=== PATIENT | male | born 1950 | race Caucasian/White ===

== ENCOUNTER 2020-11-28 12:52 | Inpatient (IN) | payer MEDICARE ==
[~2020-11-28] VITALS: Ht 172.7 cm; Wt 83.0 kg
--- NOTE | 2020-11-28 13:18 | PHYS DOC ---
General Adult EDM: Chief Complaint: PSYCH EVALUATION HPI: HPI: 70-year-old male presents via EMS for medical clearance for psychiatric admission. The patient was reported to be acting out and taking swings at staff at his care facility. He was also threatening violence. The patient does not express any medical complaints to me. Review of Systems: Review of Systems: Constitutional: Denies fever or chills Eyes: Denies change in visual acuity HENT: Denies nasal congestion or sore throat Respiratory: Denies cough or shortness of breath Cardiovascular: Denies chest pain or edema GI: Denies abdominal pain, nausea, vomiting, bloody stools or diarrhea : Denies dysuria Musculoskeletal: Denies back pain or joint pain Integument: Denies rash Neurologic: Denies headache, focal weakness or sensory changes Endocrine: Denies polyuria or polydipsia Lymphatic: Denies swollen glands Psychiatric: Denies depression or anxiety Allergies: Allergies: Allergies Coded Allergies Type Severity Reaction Last Updated Verified atorvastatin Allergy Unknown 11/28/20 Yes risperidone Allergy Unknown 11/28/20 Yes Physical Exam: PE: Constitutional: Well developed, well nourished, no acute distress, non-toxic appearance. [] HENT: Normocephalic, atraumatic, bilateral external ears normal, oropharynx moist, no oral exudates, nose normal. [] Eyes: PERRLA, EOMI, conjunctiva normal, no discharge. [] Neck: Normal range of motion, no tenderness, supple, no stridor. [] Cardiovascular: Heart rate regular rhythm, no murmur [] Lungs & Thorax: Bilateral breath sounds clear to auscultation [] Abdomen: Bowel sounds normal, soft, no tenderness, no masses, no pulsatile masses. [] Skin: Warm, dry, no erythema, no rash. [] Back: No tenderness, no CVA tenderness. [] Extremities: No tenderness, no cyanosis, no clubbing, ROM intact, no edema. [] Neurologic: Alert, normal motor function, normal sensory function, no focal deficits noted. [] Psychologic: Unable to assess. [] EKG: EKG: Sinus rhythm, rate 60, leftward axis, no ST elevation or depression. [] Radiology/Procedures: Radiology/Procedures: [] Heart Score: C/O Chest Pain: N/A Risk Factors: Risk Factors: DM, Current or recent (<one month) smoker, HTN, HLP, family history of CAD, obesity. Risk Scores: Score 0 - 3: 2.5% MACE over next 6 weeks - Discharge Home Score 4 - 6: 20.3% MACE over next 6 weeks - Admit for Clinical Observation Score 7 - 10: 72.7% MACE over next 6 weeks - Early Invasive Strategies Course & Med Decision Making: Course & Med Decision Making Pertinent Labs and Imaging studies reviewed. (See chart for details) The patient's labs are unremarkable. His urinalysis is negative for infection. His EKG is negative for acute findings. The patient is medically stable for behavioral health admission. [] Dragon Disclaimer: Dragon Disclaimer: This electronic medical record was generated, in whole or in part, using a voice recognition dictation system. Departure Departure: Impression: Primary Impression: Medical clearance for psychiatric admission Disposition: HOME / SELF CARE / HOMELESS Condition: STABLE GISELLE MOSHER DO Nov 28, 2020 13:18
--- NOTE | 2020-11-28 13:24 | EKG ---
[address] [address] Test Date: 2020-11-28 Test Time: 13:19:11 Pat Name: LARISSA ARREDONDO Department: Room: Gender: M Student Assistance Counselor: JUAN : 1950 Requested By: GISELLE MOSHER Order Number: [id number] Reading MD: Measurements Intervals [place] Rate: 60 P: -43 HI: 238 QRS: -49 QRSD: 100 T: 32 QT: 404 QTc: 404 Interpretive Statements SINUS RHYTHM PROLONGED HI INTERVAL ABNORMAL LEFT AXIS DEVIATION R-S TRANSITION ZONE IN V LEADS DISPLACED TO THE LEFT QRS(T) CONTOUR ABNORMALITY CONSISTENT WITH INFERIOR INFARCT PROBABLY OLD ABNORMAL ECG RI6.02 No previous ECG available for comparison
[2020-11-28 13:41] LABS: BASO % 1 % (0-3); EOS # 0.1 x10^3/uL (0.0-0.7); EOS % 2 % (0-3); HEMATOCRIT 40.5 % (39.0-53.0); HEMOGLOBIN 13.5 g/dL (13.0-17.5); LYMPH # 1.6 x10^3/uL (1.0-4.8); LYMPH % 33 % (24-48); MEAN CORPUSCULAR HEMOGLOBIN 30 pg (25-35); MEAN CORPUSCULAR HGB CONC 33 g/dL (31-37); MEAN CORPUSCULAR VOLUME 90 fL (79-100); MONO # 0.5 x10^3/uL (0.0-1.1); MONO % 10 % (0-9); NEUT # 2.6 x10^3uL (1.8-7.7); NEUT % 54 % (31-73); PLATELET COUNT 279 x10^3/uL (140-400); RED BLOOD COUNT 4.53 x10^6/uL (4.30-5.70); RED CELL DISTRIBUTION WIDTH 14.2 % (11.5-14.5); WHITE BLOOD COUNT 4.8 x10^3/uL (4.0-11.0)
[2020-11-28 13:47] LABS: HEMOGLOBIN ISTAT 13.3 gm/dL; POTASSIUM ISTAT 3.8 mmol/L (3.5-5.0)
[2020-11-28 14:13] LABS: BILIRUBIN,URINE NEG (NEG); CLARITY,URINE HAZY; COLOR,URINE YELLOW; GLUCOSE,URINE NEG (NEG); NITRITE,URINE NEG (NEG)
[2020-11-28 14:14] LABS: AMORPHOUS SEDIMENT,UR PRESENT /HPF; BACTERIA,URINE 0 /HPF (0-FEW); RBC,URINE 0 /HPF (0-2); WBC,URINE 0 /HPF (0-4)
[2020-11-28 15:09] LABS: CALCIUM 9.1 mg/dL (8.5-10.1); CREATININE 1.1 mg/dL (0.7-1.3); GFR 65.8; POTASSIUM 3.8 mmol/L (3.5-5.1)
[2020-11-28 15:15] LABS: ALBUMIN 3.6 g/dL (3.4-5.0); ALBUMIN/GLOBULIN RATIO 1.2 (1.0-1.7); MAGNESIUM 2.1 mg/dL (1.8-2.4); TOTAL BILIRUBIN 0.4 mg/dL (0.2-1.0); TOTAL PROTEIN 6.5 g/dL (6.4-8.2)
[2020-11-28 16:20] VITALS: BP 122/76
[2020-11-28] MEDS ORDERED: METHYL SALICYLATE/MENTHOL TOPICAL OINTMENT 57GM TUBE. TP PRN (16:45)
[2020-11-28] MEDS ORDERED: MAG HYDROX/AL HYDROX/SIMETH 30 ML ORAL.SUSP PO PRN ×2 (16:45→18:00)
[2020-11-28] MEDS ORDERED: MAGNESIUM HYDROXIDE 2,400 MG/30 ML ORAL.SUSP. PO PRN (16:45)
[2020-11-28] MEDS ORDERED: ACETAMINOPHEN 325 MG TABLET PO PRN (16:45)
[2020-11-28] MEDS ORDERED: TEMA15CA PO (17:04)
[2020-11-28] MEDS ORDERED: ONDA-84 PO (17:04)
[2020-11-28] MEDS ORDERED: DIPH28.33 TP (17:04)
[2020-11-28] MEDS ORDERED: POLY2500 PO (17:04)
[2020-11-28] MEDS ORDERED: MAG-115 PO (17:04)
[2020-11-28] MEDS ORDERED: FURO20TA3 PO (17:04)
[2020-11-28] MEDS ORDERED: NITR0.4T22 SL (17:04)
[2020-11-28] MEDS ORDERED: FENO145T3 PO (17:04)
[2020-11-28] MEDS ORDERED: DONE10TA61 PO (17:04)
[2020-11-28] MEDS ORDERED: TRIA15OI TP (17:04)
[2020-11-28] MEDS ORDERED: BISA10SU4 RC (17:04)
[2020-11-28] MEDS ORDERED: LORA-254 PO (17:04)
[2020-11-28] MEDS ORDERED: LACT1CAP6 PO (17:04)
[2020-11-28] MEDS ORDERED: CLOP75TA57 PO (17:04)
[2020-11-28] MEDS ORDERED: FAMO40TA4 PO (17:04)
[2020-11-28] MEDS ORDERED: BACL10TA PO (17:04)
[2020-11-28] MEDS ORDERED: CYAN100031 PO (17:04)
[2020-11-28] MEDS ORDERED: ACET500T68 PO (17:04)
[2020-11-28] MEDS ORDERED: CHOL10004 PO (17:04)
[2020-11-28] MEDS ORDERED: CARB1TAB22 PO (17:04)
[2020-11-28] MEDS ORDERED: METO-239 PO (17:04)
[2020-11-28] MEDS ORDERED: QUET50TA PO (17:04)
[2020-11-28] MEDS ORDERED: MELA3TAB43 PO (17:04)
[2020-11-28] MEDS ORDERED: LEVE100020 PO (17:04)
[2020-11-28] MEDS ORDERED: SENN1TAB62 PO (17:04)
[2020-11-28] MEDS ORDERED: CRESTOR40 MG PO (17:04)
[2020-11-28] MEDS ORDERED: ROPI0.5T4 PO (17:04)
[2020-11-28] MEDS ORDERED: ESCITALOPRAM OXA5 MG PO (17:04)
[2020-11-28] MEDS ORDERED: NIAC-9 PO (17:04)
[2020-11-28] MEDS ORDERED: NITROGLYCERIN SUBLINGUAL 0.4 MG BOTTLE OF 25. SL PRN (18:00)
[2020-11-28] MEDS ORDERED: TRIAMCINOLONE ACETONIDE 0.1% TOPICAL OINTMENT 15GM TUBE. TP PRN (18:00)
[2020-11-28] MEDS ORDERED: BISACODYL 10 MG SUPP.RECT RC PRN (18:00)
[2020-11-28] MEDS ORDERED: ONDANSETRON ODT 4 MG TAB.RAPDIS PO PRN (18:45)
[2020-11-28] MEDS ORDERED: diphenhydrAMINE/ZINC 2%/0.1% 28GM TUBE. TP PRN (18:45)
[2020-11-28] MEDS: FAMOTIDINE 20 MG TABLET PO SCH (20:43)
[2020-11-28] MEDS: rOPINIRole 0.5 MG TABLET. PO SCH (20:43)
[2020-11-28] MEDS: levETIRAcetam 500 MG TABLET PO SCH (20:43)
[2020-11-28] MEDS: LORazepam 1 MG TABLET PO SCH (20:43)
[2020-11-28] MEDS: MELATONIN 3 MG TABLET PO SCH (20:43)
[2020-11-28] MEDS: LACTOBACILLUS RHAMNOSUS GG 1 CAPSULE. PO SCH (20:43)
[2020-11-28] MEDS: TEMAZEPAM 7.5 MG CAPSULE PO SCH (20:43)
[2020-11-28] MEDS: SENNOSIDES/DOCUSATE 8.6/50MG TABLET. PO SCH (20:43)
[2020-11-28] MEDS: CARBIDOPA/LEVODOPA 25/100MG TABLET PO SCH (20:44)
[2020-11-28] MEDS: DONEPEZIL HCL 10 MG TABLET PO SCH (20:44)
[2020-11-28] MEDS: ACETAMINOPHEN 500 MG TABLET PO PRN (20:44)
[2020-11-28] MEDS: NIACIN ER 500 MG TABLET.ER PO SCH (20:44)
[2020-11-28] MEDS: BACLOFEN 10 MG TABLET PO SCH (20:44)
[2020-11-28] MEDS: NON FORMULARY ITEM (Rosuvastatin Calcium (Crestor) 40 MG) PO SCH (21:00)
[2020-11-28] MEDS ORDERED: TEMAZEPAM 15 MG CAPSULE PO SCH (21:00)
--- NOTE | 2020-11-28 22:05 | PDOC ---
Exam Note: Carl Note: Please also refer to the separate dictated note~for this date of service dictated separately.~Patient seen individually. Discussed the patient with Nursing staff reviewed the chart.~Reviewed interim history and current functioning. Reviewed vital signs,~Labs/ Radiology~and current medications noted below. Continue current treatment with the changes noted in the dictated addendum note Assessment: Vital Signs/I&O: Vital Signs Date Time Temp Pulse Resp B/P (MAP) Pulse Ox O2 Delivery O2 Flow Rate FiO2 11/28/20 16:20 96.8 88 20 122/76 (91) 98 11/28/20 14:40 Room Air Labs: Laboratory Tests Test 11/28/20 13:25 11/28/20 13:48 11/28/20 19:32 White Blood Count 4.8 x10^3/uL (4.0-11.0) Red Blood Count 4.53 x10^6/uL (4.30-5.70) Hemoglobin 13.5 g/dL (13.0-17.5) POC Hemoglobin 13.3 gm/dL Hematocrit 40.5 % (39.0-53.0) POC Hematocrit 39 % Mean Corpuscular Volume 90 fL (79-100) Mean Corpuscular Hemoglobin 30 pg (25-35) Mean Corpuscular Hemoglobin Concent 33 g/dL (31-37) Red Cell Distribution Width 14.2 % (11.5-14.5) Platelet Count 279 x10^3/uL (140-400) Neutrophils (%) (Auto) 54 % (31-73) Lymphocytes (%) (Auto) 33 % (24-48) Monocytes (%) (Auto) 10 % (0-9) H Eosinophils (%) (Auto) 2 % (0-3) Basophils (%) (Auto) 1 % (0-3) Neutrophils # (Auto) 2.6 x10^3uL (1.8-7.7) Lymphocytes # (Auto) 1.6 x10^3/uL (1.0-4.8) Monocytes # (Auto) 0.5 x10^3/uL (0.0-1.1) Eosinophils # (Auto) 0.1 x10^3/uL (0.0-0.7) Basophils # (Auto) 0.0 x10^3/uL (0.0-0.2) POC Sodium 143 mmol/L (135-145) Sodium Level 145 mmol/L (136-145) POC Potassium 3.8 mmol/L (3.5-5.0) Potassium Level 3.8 mmol/L (3.5-5.1) POC Chloride 104 mmol/L (98-110) Chloride Level 108 mmol/L (98-107) H Carbon Dioxide Level 27 mmol/L (21-32) POC Total CO2 31 mmol/L (23-32) Anion Gap 12 mmol/L (6-14) POC Blood Urea Nitrogen 15 mg/dL (8-26) Blood Urea Nitrogen 15 mg/dL (8-26) Creatinine 1.1 mg/dL (0.7-1.3) POC Creatinine 1.1 mg/dL (0.5-1.4) Estimated GFR (Cockcroft-Gault) 65.8 BUN/Creatinine Ratio 14 (6-20) Glucose Level 98 mg/dL (60-99) Calcium Level 9.1 mg/dL (8.5-10.1) POC Ionized Calcium (Kandi) 1.24 mmol/L (1.13-1.32) Magnesium Level 2.1 mg/dL (1.8-2.4) Total Bilirubin 0.4 mg/dL (0.2-1.0) Aspartate Amino Transferase (AST) 17 U/L (15-37) Alanine Aminotransferase (ALT) 11 U/L (16-63) L Alkaline Phosphatase 72 U/L (46-116) Total Protein 6.5 g/dL (6.4-8.2) Albumin 3.6 g/dL (3.4-5.0) Albumin/Globulin Ratio 1.2 (1.0-1.7) Urine Collection Type Unknown Urine Color Yellow Urine Clarity Hazy Urine pH 6.5 Urine Specific [place] 1.025 Urine Protein Neg (NEG-TRACE) Urine Glucose (UA) Neg mg/dL (NEG) Urine Ketones (Stick) Neg mg/dL (NEG) Urine Blood Neg (NEG) Urine Nitrite Neg (NEG) Urine Bilirubin Neg (NEG) Urine Urobilinogen Dipstick 1.0 mg/dL (0.2 mg/dL) Urine Leukocyte Esterase Neg (NEG) Urine RBC 0 /HPF (0-2) Urine WBC 0 /HPF (0-4) Urine Ammonium Biurate Crystals /HPF Urine Amorphous Sediment Present /HPF Urine Bacteria 0 /HPF (0-FEW) Glucose (Fingerstick) 79 mg/dL (70-99) Current Medications: Meds: Current Medications Medications (Trade) Dose Ordered Sig/Vincenzo Route PRN Reason Start Time Stop Time Status Last Admin Dose Admin Acetaminophen (Tylenol) 500 mg Q4HRS PRN PO PAIN/FEVER 11/28/20 18:00 11/28/20 20:44 Baclofen (Lioresal) 10 mg QID PO 11/28/20 21:00 11/28/20 20:44 Carbidopa/Levodopa (Sinemet 25/100) 1 tab BID PO 11/28/20 21:00 11/28/20 20:44 Donepezil HCl (Aricept) 10 mg QHS PO 11/28/20 21:00 11/28/20 20:44 Lorazepam (Ativan) 1 mg BID PO 11/28/20 21:00 11/28/20 20:43 Ropinirole HCl (Requip) 0.5 mg HS PO 11/28/20 21:00 11/28/20 20:43 Senna/Docusate Sodium (Senna Plus) 1 tab BID PO 11/28/20 21:00 11/28/20 20:43 Famotidine (Pepcid) 40 mg HS PO 11/28/20 21:00 11/28/20 20:43 Lactobacillus Rhamnosus (Culturelle) 2 cap BID PO 11/28/20 21:00 11/28/20 20:43 Levetiracetam (Keppra) 1,000 mg BID PO 11/28/20 21:00 11/28/20 20:43 Melatonin (Melatonin) 6 mg QHS PO 11/28/20 21:00 11/28/20 20:43 Niacin (Slo-Niacin) 250 mg QHS PO 11/28/20 21:00 11/28/20 20:44 Temazepam (Restoril) 7.5 mg QHS PO 11/28/20 21:00 11/28/20 20:43 I have reviewed the current psychotropics carefully including drug interactions. Risk benefit ratio favors no change other than as noted in my dictated progress note. Diagnosis: Problems: (1) Major neurocognitive disorder (2) Anxiety disorder, unspecified (3) Impulse control disorder, unspecified NADINE,MAN M MD Nov 28, 2020 22:05
--- NOTE | 2020-11-29 00:26 | HP ---
ADMIT DATE: 11/28/2020 PSYCHIATRIC ADMISSION HISTORY AND EVALUATION This note covers elements not covered in my initial note 11/28. IDENTIFYING DATA: The patient is a 70-year-old male referred to us from [facility] by his primary care physician/psychiatrist and admitted by his power of business attorney on account of worsening confusion within the context of his Parkinson's disease and increasing restlessness, agitation, irritable. Reportedly, patient had been swinging at staff and peers actively hallucinating. He threatened to kill his who lives at the same facility and was threatening his peers. The patient's behaviors have been deemed dangerous, unmanageable, has failed outpatient psychiatric interventions resulting in this referral. CHIEF COMPLAINT: "No". The patient appears confused, unable to directly answer questions, seemed somewhat hard of hearing, but unclear how much of it was due to being hard of hearing or cognitive impairment. HISTORY OF PRESENT ILLNESS: The patient has a history of dementia, multifactorial, possibly Alzheimer, vascular, questionably Lewy body within the context of his Parkinson's disease. He has been increasingly paranoid, psychotic, agitated with sleep and appetite changes disruptive and aggressive at the facility as noted above. No clear history of bipolar disorder. No suicidal or homicidal ideation. PAST PSYCHIATRIC HISTORY: As above. MEDICAL HISTORY: Parkinson's disease, history of PTSD, type 2 diabetes mellitus. PAST SURGICAL HISTORY: Pacemaker in place. CODE STATUS: Full code. ALLERGIES: ATORVASTATIN AND ZIPRASIDONE. Ambulates in wheelchair at times to assist. MEDICATIONS: Current psychotropics, Keppra 1000 mg b.i.d., Sinemet 25/100 mg b.i.d., Seroquel 50 mg daily, Lexapro 5 mg a day, Ativan 1 mg b.i.d., Restoril 7.5 mg at bedtime, baclofen 10 mg 4 times a day, melatonin 6 mg at bedtime, Requip 0.25 mg at bedtime, Aricept 10 mg a day. FAMILY HISTORY: Noncontributory. SOCIAL HISTORY: The patient lives at the above facility together with his . No alcohol, drug abuse, physical, sexual or elder abuse history is noted. He is not known to be a perpetrator. Reaction to hospitalization, the patient oblivious of this. ASSETS: Supportive family, stable living at the facility. REVIEW OF SYSTEMS: Possibly hard of hearing, impaired ambulation. No CV, , pulmonary, eye system symptoms on review. MENTAL STATUS EXAMINATION: NEUROLOGIC: The patient is oriented to himself, not very verbally interactive, I had to talk loudly into his ear. Insight, judgment, recent and remote memory, attention, concentration, fund of knowledge poor consistent with his diagnosis. IMPRESSION: Major neurocognitive disorder, multifactorial, possibly Lewy body, Alzheimer, vascular with delusion, depression, behavioral disturbance, anxiety disorder, unspecified; impulse control disorder, unspecified. Rest as above. PLAN: Admit to geropsychiatry unit at [facility]. I will see the patient daily individually from a psychiatric standpoint, medical followup with Dr. Guzmán/Dr. Conti. Continue current psychotropics. Maintain current regimen status baseline, then make further adjustments as clinically indicated. Consider Depakote as a mood stabilizer. Estimated length of stay 10-12 days. DISPOSITION: Plans back to [facility] when stable. MAN DR: Alissa TID: [id number]
[2020-11-29 06:23] VITALS: BP 102/68
[2020-11-29 07:10] LABS: BASO % 1 % (0-3); EOS # 0.1 x10^3/uL (0.0-0.7); EOS % 3 % (0-3); HEMATOCRIT 42.2 % (39.0-53.0); HEMOGLOBIN 14.1 g/dL (13.0-17.5); LYMPH # 2.2 x10^3/uL (1.0-4.8); LYMPH % 40 % (24-48); MEAN CORPUSCULAR HEMOGLOBIN 30 pg (25-35); MEAN CORPUSCULAR HGB CONC 33 g/dL (31-37); MEAN CORPUSCULAR VOLUME 90 fL (79-100); MONO # 0.6 x10^3/uL (0.0-1.1); MONO % 10 % (0-9); NEUT # 2.5 x10^3uL (1.8-7.7); NEUT % 47 % (31-73); PLATELET COUNT 276 x10^3/uL (140-400); RED BLOOD COUNT 4.69 x10^6/uL (4.30-5.70); RED CELL DISTRIBUTION WIDTH 14.7 % (11.5-14.5); WHITE BLOOD COUNT 5.5 x10^3/uL (4.0-11.0)
[2020-11-29 07:32] LABS: ALBUMIN 3.8 g/dL (3.4-5.0); ALBUMIN/GLOBULIN RATIO 1.2 (1.0-1.7); CALCIUM 9.2 mg/dL (8.5-10.1); CREATININE 1.1 mg/dL (0.7-1.3); GFR 65.8; TOTAL BILIRUBIN 0.6 mg/dL (0.2-1.0); TOTAL PROTEIN 6.9 g/dL (6.4-8.2)
[2020-11-29] MEDS: SENNOSIDES/DOCUSATE 8.6/50MG TABLET. PO SCH ×2 (08:12→21:14)
[2020-11-29] MEDS: CHOLECALCIFEROL (VITAMIN D3) 1,000 UNIT TABLET PO SCH (08:12)
[2020-11-29] MEDS: FENOFIBRATE NANOCRYSTALLIZED 145 MG TABLET PO SCH (08:12)
[2020-11-29] MEDS: QUEtiapine 50 MG TABLET. PO SCH (08:12)
[2020-11-29] MEDS: levETIRAcetam 500 MG TABLET PO SCH ×2 (08:12→21:13)
[2020-11-29] MEDS: POLYETHYLENE GLYCOL 3350 17 GM PACKET. PO SCH (08:12)
[2020-11-29] MEDS: CLOPIDOGREL BISULFATE 75 MG TABLET PO SCH (08:12)
[2020-11-29] MEDS: CARBIDOPA/LEVODOPA 25/100MG TABLET PO SCH ×2 (08:12→21:14)
[2020-11-29] MEDS: LACTOBACILLUS RHAMNOSUS GG 1 CAPSULE. PO SCH ×2 (08:13→21:13)
[2020-11-29] MEDS: FUROSEMIDE 20 MG TABLET PO SCH (08:13)
[2020-11-29] MEDS: CITALOPRAM 10 MG TABLET. PO SCH (08:13)
[2020-11-29] MEDS: BACLOFEN 10 MG TABLET PO SCH ×4 (08:13→21:14)
[2020-11-29] MEDS: LORazepam 1 MG TABLET PO SCH ×2 (08:13→21:14)
[2020-11-29] MEDS: METOPROLOL SUCC 24HR ER 25 MG TAB.ER.24H. PO SCH (08:14)
[2020-11-29] MEDS: CYANOCOBALAMIN (VITAMIN B-12) 1,000 MCG TABLET. PO SCH (08:19)
[2020-11-29 15:52] LABS: THYROID STIM HORMONE (TSH) 1.066 uIU/mL (0.358-3.740)
[2020-11-29 16:03] VITALS: BP 111/61
[2020-11-29] MEDS: NON FORMULARY ITEM (Rosuvastatin Calcium (Crestor) 40 MG) PO SCH (20:48)
[2020-11-29] MEDS: FAMOTIDINE 20 MG TABLET PO SCH (21:13)
[2020-11-29] MEDS: NIACIN ER 500 MG TABLET.ER PO SCH (21:13)
[2020-11-29] MEDS: TEMAZEPAM 7.5 MG CAPSULE PO SCH (21:13)
[2020-11-29] MEDS: MELATONIN 3 MG TABLET PO SCH (21:13)
[2020-11-29] MEDS: DONEPEZIL HCL 10 MG TABLET PO SCH (21:13)
[2020-11-29] MEDS: rOPINIRole 0.5 MG TABLET. PO SCH (21:14)
--- NOTE | 2020-11-29 22:22 | PDOC ---
Exam Note: Carl Note: Please also refer to the separate dictated note~for this date of service dictated separately.~Patient seen individually. Discussed the patient with Nursing staff reviewed the chart.~Reviewed interim history and current functioning. Reviewed vital signs,~Labs/ Radiology~and current medications noted below. Continue current treatment with the changes noted in the dictated addendum note Assessment: Vital Signs/I&O: Vital Signs Date Time Temp Pulse Resp B/P (MAP) Pulse Ox O2 Delivery O2 Flow Rate FiO2 11/29/20 16:03 97.7 84 18 111/61 (78) 100 11/29/20 06:23 Room Air I & O 11/28/20 11/28/20 11/29/20 15:00 23:00 07:00 Intake Total 60 ml Balance 60 ml Labs: Laboratory Tests Test 11/29/20 06:45 11/29/20 07:26 11/29/20 19:20 White Blood Count 5.5 x10^3/uL (4.0-11.0) Red Blood Count 4.69 x10^6/uL (4.30-5.70) Hemoglobin 14.1 g/dL (13.0-17.5) Hematocrit 42.2 % (39.0-53.0) Mean Corpuscular Volume 90 fL (79-100) Mean Corpuscular Hemoglobin 30 pg (25-35) Mean Corpuscular Hemoglobin Concent 33 g/dL (31-37) Red Cell Distribution Width 14.7 % (11.5-14.5) H Platelet Count 276 x10^3/uL (140-400) Neutrophils (%) (Auto) 47 % (31-73) Lymphocytes (%) (Auto) 40 % (24-48) Monocytes (%) (Auto) 10 % (0-9) H Eosinophils (%) (Auto) 3 % (0-3) Basophils (%) (Auto) 1 % (0-3) Neutrophils # (Auto) 2.5 x10^3uL (1.8-7.7) Lymphocytes # (Auto) 2.2 x10^3/uL (1.0-4.8) Monocytes # (Auto) 0.6 x10^3/uL (0.0-1.1) Eosinophils # (Auto) 0.1 x10^3/uL (0.0-0.7) Basophils # (Auto) 0.0 x10^3/uL (0.0-0.2) D-Dimer (Ama) 0.22 mg/L (0.00-0.50) Sodium Level 144 mmol/L (136-145) Potassium Level 4.0 mmol/L (3.5-5.1) Chloride Level 108 mmol/L (98-107) H Carbon Dioxide Level 29 mmol/L (21-32) Anion Gap 7 (6-14) Blood Urea Nitrogen 15 mg/dL (8-26) Creatinine 1.1 mg/dL (0.7-1.3) Estimated GFR (Cockcroft-Gault) 65.8 BUN/Creatinine Ratio 14 (6-20) Glucose Level 98 mg/dL (70-99) Calcium Level 9.2 mg/dL (8.5-10.1) Total Bilirubin 0.6 mg/dL (0.2-1.0) Aspartate Amino Transferase (AST) 17 U/L (15-37) Alanine Aminotransferase (ALT) 17 U/L (16-63) Alkaline Phosphatase 76 U/L (46-116) Total Protein 6.9 g/dL (6.4-8.2) Albumin 3.8 g/dL (3.4-5.0) Albumin/Globulin Ratio 1.2 (1.0-1.7) Triglycerides Level 94 mg/dL (0-150) Cholesterol Level 148 mg/dL (0-200) LDL Cholesterol, Calculated 80 mg/dL (0-100) VLDL Cholesterol, Calculated 18 mg/dL (0-40) Non-HDL Cholesterol Calculated 98 mg/dL (0-129) HDL Cholesterol 50 mg/dL (40-60) Cholesterol/HDL Ratio 2.0 Vitamin B12 Level 624 pg/mL (247-911) 25-Hydroxy Vitamin D Total 27.5 ng/mL (30-100) L Thyroid Stimulating Hormone (TSH) 1.066 uIU/mL (0.358-3.740) Thyroxine (T4) 6.7 ug/dL (4.5-12.0) Treponema pallidum Antibody Nonreactive (Nonreactive) Glucose (Fingerstick) 81 mg/dL (70-99) 114 mg/dL (70-99) H Current Medications: Meds: Laboratory Tests Test 11/29/20 06:45 6/8/21 07:26 11/29/20 19:20 White Blood Count 5.5 x10^3/uL Red Blood Count 4.69 x10^6/uL Hemoglobin 14.1 g/dL Hematocrit 42.2 % Mean Corpuscular Volume 90 fL Mean Corpuscular Hemoglobin 30 pg Mean Corpuscular Hemoglobin Concent 33 g/dL Red Cell Distribution Width 14.7 % Platelet Count 276 x10^3/uL Neutrophils (%) (Auto) 47 % Lymphocytes (%) (Auto) 40 % Monocytes (%) (Auto) 10 % Eosinophils (%) (Auto) 3 % Basophils (%) (Auto) 1 % Neutrophils # (Auto) 2.5 x10^3uL Lymphocytes # (Auto) 2.2 x10^3/uL Monocytes # (Auto) 0.6 x10^3/uL Eosinophils # (Auto) 0.1 x10^3/uL Basophils # (Auto) 0.0 x10^3/uL D-Dimer (Ama) 0.22 mg/L Sodium Level 144 mmol/L Potassium Level 4.0 mmol/L Chloride Level 108 mmol/L Carbon Dioxide Level 29 mmol/L Anion Gap 7 Blood Urea Nitrogen 15 mg/dL Creatinine 1.1 mg/dL Estimated GFR (Cockcroft-Gault) 65.8 BUN/Creatinine Ratio 14 Glucose Level 98 mg/dL Calcium Level 9.2 mg/dL Total Bilirubin 0.6 mg/dL Aspartate Amino Transf (AST/SGOT) 17 U/L Alanine Aminotransferase (ALT/SGPT) 17 U/L Alkaline Phosphatase 76 U/L Total Protein 6.9 g/dL Albumin 3.8 g/dL Albumin/Globulin Ratio 1.2 Triglycerides Level 94 mg/dL Cholesterol Level 148 mg/dL LDL Cholesterol, Calculated 80 mg/dL VLDL Cholesterol, Calculated 18 mg/dL Non-HDL Cholesterol Calculated 98 mg/dL HDL Cholesterol 50 mg/dL Cholesterol/HDL Ratio 2.0 Vitamin B12 Level 624 pg/mL 25-Hydroxy Vitamin D Total 27.5 ng/mL Thyroid Stimulating Hormone (TSH) 1.066 uIU/mL Thyroxine (T4) 6.7 ug/dL Treponema pallidum Antibody Nonreactive Glucose (Fingerstick) 81 mg/dL 114 mg/dL Current Medications Medications (Trade) Dose Ordered Sig/Vincenzo Route PRN Reason Start Time Stop Time Status Last Admin Dose Admin Acetaminophen (Tylenol) 650 mg PRN Q6HRS PRN PO MILD PAIN / TEMP > 100.3'F 11/28/20 16:45 Multi-Ingredient Ointment (Analgesic [place]) 1 esther PRN QID PRN TP MUSCLE PAIN 11/28/20 16:45 Al Hydroxide/Mg Hydroxide (Mylanta Plus Xs) 15 ml PRN AFTMEALHC PRN PO DYSPEPSIA 11/28/20 16:45 Magnesium Hydroxide (Milk Of Magnesia) 2,400 mg PRN QHS PRN PO CONSTIPATION 11/28/20 16:45 Acetaminophen (Tylenol) 500 mg Q4HRS PRN PO PAIN/FEVER 11/28/20 18:00 11/28/20 20:44 Baclofen (Lioresal) 10 mg QID PO 11/28/20 21:00 11/29/20 21:14 Bisacodyl (Dulcolax Supp) 10 mg PRN DAILY PRN RC CONSTIPATION 11/28/20 18:00 Carbidopa/Levodopa (Sinemet 25/100) 1 tab BID PO 11/28/20 21:00 11/29/20 21:14 Vitamin D (Vitamin D3) 1,000 unit DAILY PO 11/29/20 09:00 11/29/20 08:12 Clopidogrel Bisulfate (Plavix) 75 mg DAILY PO 11/29/20 09:00 11/29/20 08:12 Donepezil HCl (Aricept) 10 mg QHS PO 11/28/20 21:00 11/29/20 21:13 Fenofibrate (Tricor) 145 mg DAILY PO 11/29/20 09:00 11/29/20 08:12 Furosemide (Lasix) 20 mg DAILY PO 11/29/20 09:00 11/29/20 08:13 Lorazepam (Ativan) 1 mg BID PO 11/28/20 21:00 11/29/20 21:14 Al Hydroxide/Mg Hydroxide (Mylanta Plus Xs) 30 ml PRN Q2HRS PRN PO UPSET STOMACH 11/28/20 18:00 Metoprolol Succinate (Toprol Xl) 25 mg DAILY PO 11/29/20 09:00 Nitroglycerin (Nitrostat) 0.4 mg PRN Q5MIN PRN SL CHEST PAIN 11/28/20 18:00 Quetiapine Fumarate (SEROquel) 50 mg DAILY PO 11/29/20 09:00 11/29/20 08:12 Ropinirole HCl (Requip) 0.5 mg HS PO 11/28/20 21:00 11/29/20 21:14 Senna/Docusate Sodium (Senna Plus) 1 tab BID PO 11/28/20 21:00 11/29/20 21:14 Temazepam (Restoril) 7.5 mg QHS PO 11/28/20 21:00 11/28/20 20:32 DC Triamcinolone Acetonide (Kenalog) 1 esther PRN BID PRN TP BILAT ANKLE RASH 11/28/20 18:00 Cyanocobalamin (Vitamin B-12) 1,000 mcg DAILY PO 11/29/20 09:00 11/29/20 08:19 Zinc Acetate/ Diphenhydramine (Benadryl Topical) 1 esther PRN TID PRN TP BILAT ANKLE RASH ITCHING 11/28/20 18:45 Citalopram Hydrobromide (CeleXA) 10 mg DAILY PO 11/29/20 09:00 11/29/20 08:13 Famotidine (Pepcid) 40 mg HS PO 11/28/20 21:00 11/29/20 21:13 Lactobacillus Rhamnosus (Culturelle) 2 cap BID PO 11/28/20 21:00 11/29/20 21:13 Levetiracetam (Keppra) 1,000 mg BID PO 11/28/20 21:00 11/29/20 21:13 Melatonin (Melatonin) 6 mg QHS PO 11/28/20 21:00 11/29/20 21:13 Niacin (Slo-Niacin) 250 mg QHS PO 11/28/20 21:00 11/29/20 21:13 Ondansetron HCl (Zofran Odt) 4 mg PRN Q4HRS PRN PO NAUSEA/VOMITING 11/28/20 18:45 Polyethylene Glycol (miraLAX) 17 gm DAILY PO 11/29/20 09:00 11/29/20 08:12 Non-Formulary Medication (Rosuvastatin Calcium (Crestor)) 40 mg HS PO 11/28/20 21:00 UNV Temazepam (Restoril) 7.5 mg QHS PO 11/28/20 21:00 11/29/20 21:13 Current Medications Medications (Trade) Dose Ordered Sig/Vincenzo Route PRN Reason Start Time Stop Time Status Last Admin Dose Admin Vitamin D (Vitamin D3) 1,000 unit DAILY PO 11/29/20 09:00 11/29/20 08:12 Clopidogrel Bisulfate (Plavix) 75 mg DAILY PO 11/29/20 09:00 11/29/20 08:12 Fenofibrate (Tricor) 145 mg DAILY PO 11/29/20 09:00 11/29/20 08:12 Furosemide (Lasix) 20 mg DAILY PO 11/29/20 09:00 11/29/20 08:13 Quetiapine Fumarate (SEROquel) 50 mg DAILY PO 11/29/20 09:00 11/29/20 08:12 Cyanocobalamin (Vitamin B-12) 1,000 mcg DAILY PO 11/29/20 09:00 11/29/20 08:19 Citalopram Hydrobromide (CeleXA) 10 mg DAILY PO 11/29/20 09:00 11/29/20 08:13 Polyethylene Glycol (miraLAX) 17 gm DAILY PO 11/29/20 09:00 11/29/20 08:12 I have reviewed the current psychotropics carefully including drug interactions. Risk benefit ratio favors no change other than as noted in my dictated progress note. 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
[2020-11-29 23:07] LABS: HEMOGLOBIN A1C 5.5 % (4.8-5.6)
--- NOTE | 2020-11-30 00:47 | CONS ---
DATE OF CONSULTATION: 11/29/2020 REASON FOR CONSULTATION: Medical management. HISTORY OF PRESENT ILLNESS: The patient is a 70-year-old male patient, a resident at [facility] who was referred by his primary care physician and psychiatrist, on account of worsening confusion within the context of Parkinson disease and increasing restlessness, agitation and irritability. Reportedly, the patient has been swinging at staff and peers, actively hallucinating. He threatened to kill his who lives at the same facility, was threatening his peers. The patient's behaviors have been deemed dangerous, unmanageable, apparently has failed outpatient psychiatric stabilization and therefore, he was admitted to [facility] for inpatient psychiatric stabilization. PAST PSYCHIATRIC HISTORY: Significant for dementia, multifactorial, possibly Alzheimer, vascular, questionable Lewy body within the context of Parkinson's disease, apparently has been increasingly paranoid, psychotic, agitated. Sleep and appetite changes with disruptive and aggressive behavior at the facility. PAST MEDICAL HISTORY: Significant for Parkinson's disease, type 2 diabetes mellitus, gastroesophageal reflux disease, anoxic brain injury, dysphagia, hypertension, chronic constipation, hyperlipidemia. PAST SURGICAL HISTORY: Significant for permanent pacemaker placement. ALLERGIES: ALLERGIC TO ATORVASTATIN AND ZIPRASIDONE. MEDICATIONS: He is currently on the following medication. He is on Aricept 10 mg once a day at bedtime, baclofen 10 mg 4 times a day, Plavix 75 mg once a day, fenofibrate nanocrystallized 145 mg daily, Crestor 40 mg at bedtime, niacin 500 mg at bedtime, nitroglycerin 0.4 mg sublingually as needed for chest pain, metoprolol succinate 25 mg 1 tablet once a day, Tylenol 650 mg every 4 hours as needed, levetiracetam 1000 mg twice a day, escitalopram oxalate 5 mg once a day, quetiapine fumarate 50 mg daily, lorazepam 1 mg twice a day, temazepam 7.5 mg at bedtime, carbidopa/levodopa 25/100 one tablet twice a day, Requip 0.5 mg at bedtime. He is on furosemide 20 mg once a day, Mylanta 30 mL every 2 hours as needed, lactobacillus acidophilus 2 capsules twice a day, bisacodyl 10 mg suppository rectally daily p.r.n. for constipation, Senna-S one tablet twice a day, ondansetron 4 mg every 4 hours as needed, famotidine 40 mg once a day at bedtime, triamcinolone acetonide 15 g ointment apply topically twice a day, diphenhydramine/zinc apply topically 3 times a day, cyanocobalamin 1000 mcg one tablet once a day, cholecalciferol 1000 units once a day, melatonin 6 mg at bedtime, polyethylene glycol 17 g daily. REVIEW OF SYSTEMS: As per history of present illness. SOCIAL HISTORY: The patient lives at [facility] where his also lives there. He does not drink alcohol or use drugs or smokes. PHYSICAL EXAMINATION: GENERAL: When I examined him this afternoon, he was sitting comfortably in his chair, in no apparent respiratory distress. He was mostly nonverbal with some myoclonic jerks in his both upper extremities. There was no pallor, jaundice, cyanosis, or thyromegaly. No jugular distention. No limb edema. VITAL SIGNS: His heart rate was 84, blood pressure is 111/61, temperature 97.7, respiratory rate was 18, and oxygen saturation 100%. HEAD, EYES, EARS, NOSE AND THROAT: Showed normocephalic and atraumatic. NECK: Supple. HEART: Showed normal first and second heart sounds. No gallop or murmur. CHEST: Clear to auscultation. No crepitation or rhonchi. ABDOMEN: Scaphoid, soft, nontender. NEUROLOGIC: He is awake, alert, response at times appropriately. All his cranial nerves are grossly intact. He moves upper extremities to a greater extent than his lower extremities, mostly bedbound, wheelchair bound. He has myoclonic jerks in both upper extremities. LABORATORY DATA: Showed a white cell count 5500, hemoglobin 14, hematocrit 42, MCV 90 and platelet count 276,000. Serum sodium was 144, potassium 4, chloride 108, bicarbonate 29, anion gap of 7, BUN 15, creatinine 1.1, estimated GFR was 65 mL per minute. His glucose was 98, calcium was 9.2. Total bilirubin, AST, ALT, alkaline phosphatase were normal. Total protein 6.9, albumin was 3.8 and triglycerides was 94. Total cholesterol 148, LDL was 80, VLDL was 18, HDL cholesterol was 50 and the ratio is 2. Vitamin B12 was 624 pg/mL. 25-hydroxy vitamin D was 27.5 slightly on the lower side. His TSH was 1.066 and total T3 was normal at 91 ng/dL. His Treponema pallidum antibody was nonreactive. Urinalysis was essentially unremarkable and D-dimer was 0.22. ASSESSMENT AND PLAN: In summary, this is a 70-year-old male patient who was admitted as a referral from [facility] on account of increasing worsening confusion within the context of Parkinson's disease and increasing restlessness, agitation, and irritability. The patient has been swinging at staff and peers, actively hallucinating and threatening to kill his who lives at the same facility and was threatening his peers. His behavior has been deemed dangerous, unmanageable and therefore, he was admitted for inpatient psychiatric stabilization. Medically, the patient seems to have multiple medical problems that are generally stable including hypertension, hyperlipidemia, type 2 diabetes, gastroesophageal reflux disease. Obviously, his Parkinson's disease has very prominent features, has dyskinesia and locked rigidity and form of myoclonic jerks, but no tremors in his upper extremities. He is only on Sinemet one tablet twice a day and I believe that he would probably benefit from being seen by Dr. Florian for perhaps adjusting his anti-parkinsonian medication. Otherwise, all his lab work seemed to be well within acceptable range. His chemistry also showed that he is within normal range except for the fact that his 25-hydroxy vitamin D is in the lower side. There is no evidence of any infection in the urine. My plan is to continue with all his current medications as is and monitor his lab works are still pending. I will start him on vitamin D and will consult the pharmacy for replacement for Crestor as he is ALLERGIC TO ATORVASTATIN. Thank you, Dr. Erwin, for allowing me to participate in the care of this patient. MARTÍN NEGRETE: Ariel TID: [id number]
[2020-11-30 06:33] VITALS: BP 113/71
--- NOTE | 2020-11-30 06:49 | PDOC ---
Exam Note: Carl Note: This note is a late entry for 11/29/2020 covers elements not covered in my initial note. Subjective: The patient was seen individually in the evening of 11/29/2020 with Chyna WISDOM, discussed and reviewed the chart. He slept 8-1/4 hours previous night. The patient is alert and oriented x1. He does have significant parkinsonian facial expression, difficulty with his movements and he was trying to explain and emphasize this to me individually. Review of Systems: Ambulation impaired in wheelchair. No CV, , pulmonary, eye system symptoms on review. Reliability poor. Mental Status Exam: The patient is oriented to himself. Insight and judgment, recent and remote memory, attention and concentration, fund of knowledge is poor consistent with his diagnoses. Laboratory Data: Reviewed. 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 Anxiety disorder unspecified. Impulse control disorder unspecified. Plan: Continue psychotropics mentioned from initial note. Consult Dr. Florian to follow for his Parkinsons. Continue to evaluate baseline. Adjust further as clinically indicated. Assessment: Vital Signs/I&O: Vital Signs Date Time Temp Pulse Resp B/P (MAP) Pulse Ox O2 Delivery O2 Flow Rate FiO2 11/30/20 06:33 97.3 61 18 113/71 (85) 97 Room Air I & O 11/29/20 11/29/20 11/30/20 15:00 23:00 07:00 Intake Total 1680 ml 900 ml Balance 1680 ml 900 ml Labs: Laboratory Tests Test 11/29/20 07:26 11/29/20 19:20 Glucose (Fingerstick) 81 mg/dL (70-99) 114 mg/dL (70-99) H Current Medications: Meds: Laboratory Tests Test 11/29/20 07:26 11/29/20 19:20 Glucose (Fingerstick) 81 mg/dL 114 mg/dL Current Medications Medications (Trade) Dose Ordered Sig/Vincenzo Route PRN Reason Start Time Stop Time Status Last Admin Dose Admin Acetaminophen (Tylenol) 650 mg PRN Q6HRS PRN PO MILD PAIN / TEMP > 100.3'F 11/28/20 16:45 Multi-Ingredient Ointment (Analgesic [place]) 1 esther PRN QID PRN TP MUSCLE PAIN 11/28/20 16:45 Al Hydroxide/Mg Hydroxide (Mylanta Plus Xs) 15 ml PRN AFTMEALHC PRN PO DYSPEPSIA 11/28/20 16:45 Magnesium Hydroxide (Milk Of Magnesia) 2,400 mg PRN QHS PRN PO CONSTIPATION 11/28/20 16:45 Acetaminophen (Tylenol) 500 mg Q4HRS PRN PO PAIN/FEVER 11/28/20 18:00 11/28/20 20:44 Baclofen (Lioresal) 10 mg QID PO 11/28/20 21:00 11/29/20 21:14 Bisacodyl (Dulcolax Supp) 10 mg PRN DAILY PRN RC CONSTIPATION 11/28/20 18:00 Carbidopa/Levodopa (Sinemet 25/100) 1 tab BID PO 11/28/20 21:00 11/29/20 21:14 Vitamin D (Vitamin D3) 1,000 unit DAILY PO 11/29/20 09:00 11/29/20 08:12 Clopidogrel Bisulfate (Plavix) 75 mg DAILY PO 11/29/20 09:00 11/29/20 08:12 Donepezil HCl (Aricept) 10 mg QHS PO 11/28/20 21:00 11/29/20 21:13 Fenofibrate (Tricor) 145 mg DAILY PO 11/29/20 09:00 11/29/20 08:12 Furosemide (Lasix) 20 mg DAILY PO 11/29/20 09:00 11/29/20 08:13 Lorazepam (Ativan) 1 mg BID PO 11/28/20 21:00 11/29/20 21:14 Al Hydroxide/Mg Hydroxide (Mylanta Plus Xs) 30 ml PRN Q2HRS PRN PO UPSET STOMACH 11/28/20 18:00 Metoprolol Succinate (Toprol Xl) 25 mg DAILY PO 11/29/20 09:00 Nitroglycerin (Nitrostat) 0.4 mg PRN Q5MIN PRN SL CHEST PAIN 11/28/20 18:00 Quetiapine Fumarate (SEROquel) 50 mg DAILY PO 11/29/20 09:00 11/29/20 08:12 Ropinirole HCl (Requip) 0.5 mg HS PO 11/28/20 21:00 11/29/20 21:14 Senna/Docusate Sodium (Senna Plus) 1 tab BID PO 11/28/20 21:00 11/29/20 21:14 Temazepam (Restoril) 7.5 mg QHS PO 11/28/20 21:00 11/28/20 20:32 DC Triamcinolone Acetonide (Kenalog) 1 esther PRN BID PRN TP BILAT ANKLE RASH 11/28/20 18:00 Cyanocobalamin (Vitamin B-12) 1,000 mcg DAILY PO 11/29/20 09:00 11/29/20 08:19 Zinc Acetate/ Diphenhydramine (Benadryl Topical) 1 esther PRN TID PRN TP BILAT ANKLE RASH ITCHING 11/28/20 18:45 Citalopram Hydrobromide (CeleXA) 10 mg DAILY PO 11/29/20 09:00 11/29/20 08:13 Famotidine (Pepcid) 40 mg HS PO 11/28/20 21:00 11/29/20 21:13 Lactobacillus Rhamnosus (Culturelle) 2 cap BID PO 11/28/20 21:00 11/29/20 21:13 Levetiracetam (Keppra) 1,000 mg BID PO 11/28/20 21:00 11/29/20 21:13 Melatonin (Melatonin) 6 mg QHS PO 11/28/20 21:00 11/29/20 21:13 Niacin (Slo-Niacin) 250 mg QHS PO 11/28/20 21:00 11/29/20 21:13 Ondansetron HCl (Zofran Odt) 4 mg PRN Q4HRS PRN PO NAUSEA/VOMITING 11/28/20 18:45 Polyethylene Glycol (miraLAX) 17 gm DAILY PO 11/29/20 09:00 11/29/20 08:12 Non-Formulary Medication (Rosuvastatin Calcium (Crestor)) 40 mg HS PO 11/28/20 21:00 UNV Temazepam (Restoril) 7.5 mg QHS PO 11/28/20 21:00 11/29/20 21:13 Current Medications Medications (Trade) Dose Ordered Sig/Vincenzo Route PRN Reason Start Time Stop Time Status Last Admin Dose Admin Vitamin D (Vitamin D3) 1,000 unit DAILY PO 11/29/20 09:00 11/29/20 08:12 Clopidogrel Bisulfate (Plavix) 75 mg DAILY PO 11/29/20 09:00 11/29/20 08:12 Fenofibrate (Tricor) 145 mg DAILY PO 11/29/20 09:00 11/29/20 08:12 Furosemide (Lasix) 20 mg DAILY PO 11/29/20 09:00 11/29/20 08:13 Quetiapine Fumarate (SEROquel) 50 mg DAILY PO 11/29/20 09:00 11/29/20 08:12 Cyanocobalamin (Vitamin B-12) 1,000 mcg DAILY PO 11/29/20 09:00 11/29/20 08:19 Citalopram Hydrobromide (CeleXA) 10 mg DAILY PO 11/29/20 09:00 11/29/20 08:13 Polyethylene Glycol (miraLAX) 17 gm DAILY PO 11/29/20 09:00 11/29/20 08:12 I have reviewed the current psychotropics carefully including drug interactions. Risk benefit ratio favors no change other than as noted in my dictated progress note. Diagnosis: Problems: (1) Impulse control disorder, unspecified (2) Anxiety disorder, unspecified (3) Major neurocognitive disorder (4) Lewy body dementia with behavioral disturbance (5) Dementia, vascular, with delusions (6) Dementia, vascular, with delirium (7) Dementia in Alzheimer's disease with depression (8) Dementia in Alzheimer's disease with delusions (9) Parkinson's disease GIGI MCCOY MD Nov 30, 2020 06:49
[2020-11-30] MEDS: CITALOPRAM 10 MG TABLET. PO SCH (08:24)
[2020-11-30] MEDS: POLYETHYLENE GLYCOL 3350 17 GM PACKET. PO SCH (08:24)
[2020-11-30] MEDS: CLOPIDOGREL BISULFATE 75 MG TABLET PO SCH (08:25)
[2020-11-30] MEDS: QUEtiapine 50 MG TABLET. PO SCH (08:25)
[2020-11-30] MEDS: SENNOSIDES/DOCUSATE 8.6/50MG TABLET. PO SCH ×2 (08:25→20:39)
[2020-11-30] MEDS: levETIRAcetam 500 MG TABLET PO SCH ×2 (08:25→20:39)
[2020-11-30] MEDS: LORazepam 1 MG TABLET PO SCH ×2 (08:25→20:39)
[2020-11-30] MEDS: CHOLECALCIFEROL (VITAMIN D3) 1,000 UNIT TABLET PO SCH (08:25)
[2020-11-30] MEDS: LACTOBACILLUS RHAMNOSUS GG 1 CAPSULE. PO SCH ×2 (08:25→20:38)
[2020-11-30] MEDS: FENOFIBRATE NANOCRYSTALLIZED 145 MG TABLET PO SCH (08:25)
[2020-11-30] MEDS: CARBIDOPA/LEVODOPA 25/100MG TABLET PO SCH ×2 (08:25→20:40)
[2020-11-30] MEDS: FUROSEMIDE 20 MG TABLET PO SCH (08:25)
[2020-11-30] MEDS: METOPROLOL SUCC 24HR ER 25 MG TAB.ER.24H. PO SCH (08:26)
[2020-11-30] MEDS: BACLOFEN 10 MG TABLET PO SCH ×4 (08:26→20:38)
[2020-11-30] MEDS: CYANOCOBALAMIN (VITAMIN B-12) 1,000 MCG TABLET. PO SCH (08:26)
[2020-11-30 15:59] VITALS: BP 111/70
[2020-11-30] MEDS: NON FORMULARY ITEM (Rosuvastatin Calcium (Crestor) 40 MG) PO SCH (20:33)
[2020-11-30] MEDS: FAMOTIDINE 20 MG TABLET PO SCH (20:38)
[2020-11-30] MEDS: DONEPEZIL HCL 10 MG TABLET PO SCH (20:38)
[2020-11-30] MEDS: MELATONIN 3 MG TABLET PO SCH (20:38)
[2020-11-30] MEDS: rOPINIRole 0.5 MG TABLET. PO SCH (20:38)
[2020-11-30] MEDS: MIRTAZAPINE 7.5 MG TABLET. PO SCH (20:39)
[2020-11-30] MEDS: NIACIN ER 500 MG TABLET.ER PO SCH (20:39)
--- NOTE | 2020-11-30 22:09 | PDOC ---
Exam Note: Carl Note: Please also refer to the separate dictated note~for this date of service dictated separately.~Patient seen individually. Discussed the patient with Nursing staff reviewed the chart.~Reviewed interim history and current functioning. Reviewed vital signs,~Labs/ Radiology~and current medications noted below. Continue current treatment with the changes noted in the dictated addendum note Assessment: Vital Signs/I&O: Vital Signs Date Time Temp Pulse Resp B/P (MAP) Pulse Ox O2 Delivery O2 Flow Rate FiO2 11/30/20 15:59 98.0 70 18 111/70 (84) 98 11/30/20 06:33 Room Air I & O 11/29/20 11/29/20 11/30/20 15:00 23:00 07:00 Intake Total 1680 ml 900 ml Balance 1680 ml 900 ml Labs: Laboratory Tests Test 11/30/20 07:26 Glucose (Fingerstick) 91 mg/dL (70-99) Current Medications: Meds: Laboratory Tests Test 11/30/20 07:26 Glucose (Fingerstick) 91 mg/dL Current Medications Medications (Trade) Dose Ordered Sig/Vincenzo Route PRN Reason Start Time Stop Time Status Last Admin Dose Admin Acetaminophen (Tylenol) 650 mg PRN Q6HRS PRN PO MILD PAIN / TEMP > 100.3'F 11/28/20 16:45 Multi-Ingredient Ointment (Analgesic [place]) 1 esther PRN QID PRN TP MUSCLE PAIN 11/28/20 16:45 Al Hydroxide/Mg Hydroxide (Mylanta Plus Xs) 15 ml PRN AFTMEALHC PRN PO DYSPEPSIA 11/28/20 16:45 Magnesium Hydroxide (Milk Of Magnesia) 2,400 mg PRN QHS PRN PO CONSTIPATION 11/28/20 16:45 Acetaminophen (Tylenol) 500 mg Q4HRS PRN PO PAIN/FEVER 11/28/20 18:00 11/28/20 20:44 Baclofen (Lioresal) 10 mg QID PO 11/28/20 21:00 11/30/20 20:38 Bisacodyl (Dulcolax Supp) 10 mg PRN DAILY PRN RC CONSTIPATION 11/28/20 18:00 Carbidopa/Levodopa (Sinemet 25/100) 1 tab BID PO 11/28/20 21:00 11/30/20 20:40 Vitamin D (Vitamin D3) 1,000 unit DAILY PO 11/29/20 09:00 11/30/20 08:25 Clopidogrel Bisulfate (Plavix) 75 mg DAILY PO 11/29/20 09:00 11/30/20 08:25 Donepezil HCl (Aricept) 10 mg QHS PO 11/28/20 21:00 11/30/20 20:38 Fenofibrate (Tricor) 145 mg DAILY PO 11/29/20 09:00 11/30/20 08:25 Furosemide (Lasix) 20 mg DAILY PO 11/29/20 09:00 11/30/20 08:25 Lorazepam (Ativan) 1 mg BID PO 11/28/20 21:00 11/30/20 18:02 DC 11/30/20 08:25 Al Hydroxide/Mg Hydroxide (Mylanta Plus Xs) 30 ml PRN Q2HRS PRN PO UPSET STOMACH 11/28/20 18:00 Metoprolol Succinate (Toprol Xl) 25 mg DAILY PO 11/29/20 09:00 11/30/20 08:26 Nitroglycerin (Nitrostat) 0.4 mg PRN Q5MIN PRN SL CHEST PAIN 11/28/20 18:00 Quetiapine Fumarate (SEROquel) 50 mg DAILY PO 11/29/20 09:00 11/30/20 08:25 Ropinirole HCl (Requip) 0.5 mg HS PO 11/28/20 21:00 11/30/20 20:38 Senna/Docusate Sodium (Senna Plus) 1 tab BID PO 11/28/20 21:00 11/30/20 20:39 Temazepam (Restoril) 7.5 mg QHS PO 11/28/20 21:00 11/28/20 20:32 DC Triamcinolone Acetonide (Kenalog) 1 esther PRN BID PRN TP BILAT ANKLE RASH 11/28/20 18:00 Cyanocobalamin (Vitamin B-12) 1,000 mcg DAILY PO 11/29/20 09:00 11/30/20 08:26 Zinc Acetate/ Diphenhydramine (Benadryl Topical) 1 esther PRN TID PRN TP BILAT ANKLE RASH ITCHING 11/28/20 18:45 Citalopram Hydrobromide (CeleXA) 10 mg DAILY PO 11/29/20 09:00 11/30/20 08:24 Famotidine (Pepcid) 40 mg HS PO 11/28/20 21:00 11/30/20 20:38 Lactobacillus Rhamnosus (Culturelle) 2 cap BID PO 11/28/20 21:00 11/30/20 20:38 Levetiracetam (Keppra) 1,000 mg BID PO 11/28/20 21:00 11/30/20 20:39 Melatonin (Melatonin) 6 mg QHS PO 11/28/20 21:00 11/30/20 20:38 Niacin (Slo-Niacin) 250 mg QHS PO 11/28/20 21:00 11/30/20 20:39 Ondansetron HCl (Zofran Odt) 4 mg PRN Q4HRS PRN PO NAUSEA/VOMITING 11/28/20 18:45 Polyethylene Glycol (miraLAX) 17 gm DAILY PO 11/29/20 09:00 11/30/20 08:24 Non-Formulary Medication (Rosuvastatin Calcium (Crestor)) 40 mg HS PO 11/28/20 21:00 UNV Temazepam (Restoril) 7.5 mg QHS PO 11/28/20 21:00 11/30/20 18:01 DC 11/29/20 21:13 Lorazepam (Ativan) 1 mg QHS PO 11/30/20 21:00 11/30/20 20:39 Lorazepam (Ativan) 0.5 mg DAILY PO 12/01/20 09:00 Mirtazapine (Remeron) 7.5 mg QHS PO 11/30/20 21:00 11/30/20 20:39 Current Medications Medications (Trade) Dose Ordered Sig/Vincenzo Route PRN Reason Start Time Stop Time Status Last Admin Dose Admin Lorazepam (Ativan) 1 mg QHS PO 11/30/20 21:00 11/30/20 20:39 Mirtazapine (Remeron) 7.5 mg QHS PO 11/30/20 21:00 11/30/20 20:39 I have reviewed the current psychotropics carefully including drug interactions. Risk benefit ratio favors no change other than as noted in my dictated progress note. Diagnosis: Problems: (1) Impulse control disorder, unspecified (2) Anxiety disorder, unspecified (3) Major neurocognitive disorder (4) Lewy body dementia with behavioral disturbance (5) Dementia, vascular, with delusions (6) Dementia, vascular, with delirium (7) Dementia in Alzheimer's disease with depression (8) Dementia in Alzheimer's disease with delusions (9) Parkinson's disease GIGI MCCOY MD Nov 30, 2020 22:09
[2020-12-01 06:04] VITALS: BP 120/77
--- NOTE | 2020-12-01 07:17 | PDOC ---
Exam Note: Carl Note: This note is a late entry for 11/30/2020 covers elements not covered in my initial note. Subjective: The patient was seen individually in the evening of 11/30/2020 with Chyna WISDOM, discussed and reviewed the chart. He slept 3 hours previous night. The patient was seen by Dr. Florian, Neurology consult for his Parkinsons. He has been quiet, withdrawn. Review of Systems: Ambulation impaired in wheelchair. No CV, , pulmonary, eye system symptoms on review. Reliability poor. Mental Status Exam: The patient is oriented to himself. Insight and judgment, recent and remote memory, attention and concentration, fund of knowledge is poor consistent with his diagnoses. Laboratory Data: Reviewed. 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 Anxiety disorder unspecified. Impulse control disorder unspecified. Plan: Change temazepam 7.5 mg h.s. to Remeron 7.5 mg h.s., to help avoid using benzodiazepines and Ativan is 1 mg b.i.d. We will reduce to 0.5 mg morning and 1 mg evening. Maintain rest unchanged including Celexa, Seroquel. He remains also on Keppra, ReQuip, Aricept, and melatonin. Assessment: Vital Signs/I&O: Vital Signs Date Time Temp Pulse Resp B/P (MAP) Pulse Ox O2 Delivery O2 Flow Rate FiO2 12/01/20 06:04 97.0 66 18 120/77 (91) 97 Room Air I & O 11/30/20 11/30/20 12/01/20 15:00 23:00 07:00 Intake Total 360 ml 780 ml Balance 360 ml 780 ml Labs: Laboratory Tests Test 11/30/20 07:26 Glucose (Fingerstick) 91 mg/dL (70-99) Current Medications: Meds: Laboratory Tests Test 11/30/20 07:26 Glucose (Fingerstick) 91 mg/dL Current Medications Medications (Trade) Dose Ordered Sig/Vincenzo Route PRN Reason Start Time Stop Time Status Last Admin Dose Admin Acetaminophen (Tylenol) 650 mg PRN Q6HRS PRN PO MILD PAIN / TEMP > 100.3'F 11/28/20 16:45 Multi-Ingredient Ointment (Analgesic [place]) 1 esther PRN QID PRN TP MUSCLE PAIN 11/28/20 16:45 Al Hydroxide/Mg Hydroxide (Mylanta Plus Xs) 15 ml PRN AFTMEALHC PRN PO DYSPEPSIA 11/28/20 16:45 Magnesium Hydroxide (Milk Of Magnesia) 2,400 mg PRN QHS PRN PO CONSTIPATION 11/28/20 16:45 Acetaminophen (Tylenol) 500 mg Q4HRS PRN PO PAIN/FEVER 11/28/20 18:00 11/28/20 20:44 Baclofen (Lioresal) 10 mg QID PO 11/28/20 21:00 11/30/20 20:38 Bisacodyl (Dulcolax Supp) 10 mg PRN DAILY PRN RC CONSTIPATION 11/28/20 18:00 Carbidopa/Levodopa (Sinemet 25/100) 1 tab BID PO 11/28/20 21:00 11/30/20 20:40 Vitamin D (Vitamin D3) 1,000 unit DAILY PO 11/29/20 09:00 11/30/20 08:25 Clopidogrel Bisulfate (Plavix) 75 mg DAILY PO 11/29/20 09:00 11/30/20 08:25 Donepezil HCl (Aricept) 10 mg QHS PO 11/28/20 21:00 11/30/20 20:38 Fenofibrate (Tricor) 145 mg DAILY PO 11/29/20 09:00 11/30/20 08:25 Furosemide (Lasix) 20 mg DAILY PO 11/29/20 09:00 11/30/20 08:25 Lorazepam (Ativan) 1 mg BID PO 11/28/20 21:00 11/30/20 18:02 DC 11/30/20 08:25 Al Hydroxide/Mg Hydroxide (Mylanta Plus Xs) 30 ml PRN Q2HRS PRN PO UPSET STOMACH 11/28/20 18:00 Metoprolol Succinate (Toprol Xl) 25 mg DAILY PO 11/29/20 09:00 11/30/20 08:26 Nitroglycerin (Nitrostat) 0.4 mg PRN Q5MIN PRN SL CHEST PAIN 11/28/20 18:00 Quetiapine Fumarate (SEROquel) 50 mg DAILY PO 11/29/20 09:00 11/30/20 08:25 Ropinirole HCl (Requip) 0.5 mg HS PO 11/28/20 21:00 11/30/20 20:38 Senna/Docusate Sodium (Senna Plus) 1 tab BID PO 11/28/20 21:00 11/30/20 20:39 Temazepam (Restoril) 7.5 mg QHS PO 11/28/20 21:00 11/28/20 20:32 DC Triamcinolone Acetonide (Kenalog) 1 esther PRN BID PRN TP BILAT ANKLE RASH 11/28/20 18:00 Cyanocobalamin (Vitamin B-12) 1,000 mcg DAILY PO 11/29/20 09:00 11/30/20 08:26 Zinc Acetate/ Diphenhydramine (Benadryl Topical) 1 esther PRN TID PRN TP BILAT ANKLE RASH ITCHING 11/28/20 18:45 Citalopram Hydrobromide (CeleXA) 10 mg DAILY PO 11/29/20 09:00 11/30/20 08:24 Famotidine (Pepcid) 40 mg HS PO 11/28/20 21:00 11/30/20 20:38 Lactobacillus Rhamnosus (Culturelle) 2 cap BID PO 11/28/20 21:00 11/30/20 20:38 Levetiracetam (Keppra) 1,000 mg BID PO 11/28/20 21:00 11/30/20 20:39 Melatonin (Melatonin) 6 mg QHS PO 11/28/20 21:00 11/30/20 20:38 Niacin (Slo-Niacin) 250 mg QHS PO 11/28/20 21:00 11/30/20 20:39 Ondansetron HCl (Zofran Odt) 4 mg PRN Q4HRS PRN PO NAUSEA/VOMITING 11/28/20 18:45 Polyethylene Glycol (miraLAX) 17 gm DAILY PO 11/29/20 09:00 11/30/20 08:24 Non-Formulary Medication (Rosuvastatin Calcium (Crestor)) 40 mg HS PO 11/28/20 21:00 UNV Temazepam (Restoril) 7.5 mg QHS PO 11/28/20 21:00 11/30/20 18:01 DC 11/29/20 21:13 Lorazepam (Ativan) 1 mg QHS PO 11/30/20 21:00 11/30/20 20:39 Lorazepam (Ativan) 0.5 mg DAILY PO 12/01/20 09:00 Mirtazapine (Remeron) 7.5 mg QHS PO 11/30/20 21:00 11/30/20 20:39 Current Medications Medications (Trade) Dose Ordered Sig/Vincenzo Route PRN Reason Start Time Stop Time Status Last Admin Dose Admin Lorazepam (Ativan) 1 mg QHS PO 11/30/20 21:00 11/30/20 20:39 Mirtazapine (Remeron) 7.5 mg QHS PO 11/30/20 21:00 11/30/20 20:39 I have reviewed the current psychotropics carefully including drug interactions. Risk benefit ratio favors no change other than as noted in my dictated progress note. Diagnosis: Problems: (1) Impulse control disorder, unspecified (2) Anxiety disorder, unspecified (3) Major neurocognitive disorder (4) Lewy body dementia with behavioral disturbance (5) Dementia, vascular, with delusions (6) Dementia, vascular, with delirium (7) Dementia in Alzheimer's disease with depression (8) Dementia in Alzheimer's disease with delusions (9) Parkinson's disease GIGI MCCOY MD Dec 01, 2020 07:17
[2020-12-01] MEDS: levETIRAcetam 500 MG TABLET PO SCH ×2 (09:04→20:41)
[2020-12-01] MEDS: LACTOBACILLUS RHAMNOSUS GG 1 CAPSULE. PO SCH ×2 (09:04→20:39)
[2020-12-01] MEDS: LORazepam 0.5 MG TABLET PO SCH (09:04)
[2020-12-01] MEDS: FENOFIBRATE NANOCRYSTALLIZED 145 MG TABLET PO SCH (09:04)
[2020-12-01] MEDS: BACLOFEN 10 MG TABLET PO SCH ×4 (09:04→20:38)
[2020-12-01] MEDS: ACETAMINOPHEN 500 MG TABLET PO PRN (09:05)
[2020-12-01] MEDS: CHOLECALCIFEROL (VITAMIN D3) 1,000 UNIT TABLET PO SCH (09:05)
[2020-12-01] MEDS: CYANOCOBALAMIN (VITAMIN B-12) 1,000 MCG TABLET. PO SCH (09:05)
[2020-12-01] MEDS: METOPROLOL SUCC 24HR ER 25 MG TAB.ER.24H. PO SCH (09:05)
[2020-12-01] MEDS: SENNOSIDES/DOCUSATE 8.6/50MG TABLET. PO SCH ×2 (09:05→20:42)
[2020-12-01] MEDS: QUEtiapine 50 MG TABLET. PO SCH (09:05)
[2020-12-01] MEDS: CARBIDOPA/LEVODOPA 25/100MG TABLET PO SCH ×2 (09:06→20:41)
[2020-12-01] MEDS: CLOPIDOGREL BISULFATE 75 MG TABLET PO SCH (09:06)
[2020-12-01] MEDS: CITALOPRAM 10 MG TABLET. PO SCH (09:06)
[2020-12-01] MEDS: FUROSEMIDE 20 MG TABLET PO SCH (09:06)
[2020-12-01] MEDS: POLYETHYLENE GLYCOL 3350 17 GM PACKET. PO SCH (09:06)
--- NOTE | 2020-12-01 11:48 | TX PLAN ---
Interdisciplinary Tx Plan Admission Information Nov 28, 2020 at 15:30 Legal Status (on Admission): Voluntary, DPOA DPOA/Guardian Name: Sally Carter- Sister in law Contact Other Contact Name: Mary Other Contact Verified Code Status: Full Code Allergies: Coded Allergies: atorvastatin (Verified Allergy, Unknown, 11/28/20) ziprasidone (Verified Allergy, Unknown, 11/28/20) Estimated Length of Stay: 14 Diagnoses Primary Diagnosis: Major neurocognitive d/o, vascular Alz with delusions, depression, BD; Anxiety d/o unspecified; Impulse control d/o Reasons for Admission: Aggressive, Agitated, Angry, Hallucinations, Combative, Confusion/Disoriented, Poor impulse control Problem in Patient's Words: Kimo is unable to verbalize his thoughts/feelings. Per POA and care facility, Kimo's behaviors are endangering others. Additional Admission Comments: Per intake record, restless, agitated, irritable, swinging at staff and peers, hallucinates, threatened to kill who lives at the facility too, threatening peers. Problems Active Problems: restless agitated irritable aggressive/combative threatening others Inactive Problems: adequate meal intake medication compliant Pt Strengths/Limitations Ability for [place]: Poor Cognitive Functioning/Ability: Poor Communication Skills/Ability: Poor Financial Resources: Fair Insight/Judgement: Poor Intellectual Ability: Fair Physical Health: Fair Social Skills: Fair Stability in Family: Fair Verbal Skills: Poor Discharge Criteria Discharge Criteria: Adequate arrangements @DC, Improved behavior, Improved mood/thought Preliminary Discharge Plan Preliminary DC Plan: Snf Other Arrangements: [facility] Special Precautions Special Precautions: Agitation/Assault Fall Risk: High Initial D/C Plan Kimo will return to [facility] once stable. Identified Discharge Needs: Out patient psychiatry, if available Currently Utilized Resources Currently Utilized Resources/P: PCP Referrals Community Resources: Out patient psychiatry, if available Identified Problems/Hx/Goals Objectives/Short-Term Goals Short Term Goals: Control abnormal behavior, Dec. Aggression, Medication Stabilization, Monitor Med Effects Short Term Goals in Patient's: Kimo is unable to verbalize his thoughts/feelings at this time related to Parkinson's. Per POA, mood and behavior stabilization. Interventions/Frequency Staff Interventions/Frequency&: Nursing to provide routine safety checks, medication adminsitation, and adl support. Psychiatry will see three times weekly. SW to see twice weekly. SW and recreational therapy groups as Kimo is willing to be involved. PT/OT as indicated. History Vocational History: Kimo worked for [employer]. He is retired and receives a small pension from [employer]. Social: Kimo has enjoyed fishing, exercise, and has a dog named "Bear." Education: Kimo graduated from high school, somewhere around the [facility]. Community Follow-up PCP Out patient psychiatry, if available Community Provider/Family Inpu: Letty/OLGA and Wendi/NORTH at [facility] participated in team meeting via phone on this date. Treatment Plan Explained Patient/Elevated Guard had this treatment plan explained to him/her as indicated by the signature below and has been given the opportunity to ask questions and make suggestions: Date: Patient/Elevated Guard Signature: CHLOE BOATENG Dec 01, 2020 11:48
--- NOTE | 2020-12-01 15:03 | CONS ---
DATE OF CONSULTATION: 11/30/2020 ADDENDUM CURRENT MEDICATIONS: Lorazepam, mirtazapine, Celexa, vitamin B12, Seroquel, metoprolol, furosemide, TriCor, Plavix, vitamin D3, Crestor, niacin, melatonin, Levetiracetam, famotidine, Aricept, carbidopa/levodopa 25/100 b.i.d., baclofen 10 mg q.i.d., Zofran 4 mg p.r.n. ALLERGIES: LIPITOR AND ZIPRASIDONE. PHYSICAL EXAMINATION: GENERAL: Well-developed, well-nourished male in no acute distress. He weighs 81.7 kilos. VITAL SIGNS: Blood pressure is 113/71, respiratory rate 18, pulse rate 61, oxygen saturation 98%, temperature is 97.3. HEENT: Normocephalic, atraumatic, otherwise unremarkable. NECK: Supple, negative for carotid bruit, lymphadenopathy or thyromegaly. LUNGS: Clear to A and P. HEART: Regular rhythm. Normal S1, S2. There is no S3, S4 or murmur. ABDOMEN: Soft. Bowel sounds positive. EXTREMITIES: Negative for cyanosis, clubbing or pedal edema. NEUROLOGIC: Mental status: The patient is drowsy. He opens his eyes to verbal commands, but he is not verbal and cannot communicate or follow any commands. Further evaluation of his mental status is limited at this time. Cranial nerves: The pupils are equal and reactive to light. There is no nystagmus. Extraocular movements are slow. There is no facial motor or sensory deficit. Further evaluation is limited at this time. Motor examination: The patient is confined to the wheelchair. The strength in upper back 4/5 throughout. The tone is increased in the upper and lower extremities. Sensory examination revealed normal pinprick and light touch senses. Deep tendon reflexes were symmetric and hypoactive with absent Achilles responses. Gait not tested. LABORATORY DATA: CBC from 11/29/2020 revealed a white blood cells of 5500, hemoglobin of 14.1, hematocrit 42.2, platelet count 276,000. Chemistry revealed a sodium of 143, potassium 3.8, chloride 104, CO2 of 29, BUN 15, creatinine 1.1, glucose is 98, calcium 9.2. Iron is normal. Liver enzymes are normal. Lipid profiles are normal. Vitamin B12 of 624 with normal thyroid profile. Urinalysis is negative for urinary tract infection. RPR is nonreactive. IMPRESSION: 1. Dementia, probably of Alzheimer and Lewy body dementia. 2. Multiple medical problems include diabetes mellitus, hyperlipidemia, gastroesophageal reflux disease, longstanding history of Parkinson disease. The patient is on Keppra assuming he has history of seizure. RECOMMENDATION: 1. Continue with medical and psychiatric care. 2. We will increase Carbidopa/levodopa 25/100 t.i.d. 3. Physical therapy evaluation. DEVIKA DR: Alexy TID: [id number]
[2020-12-01 15:45] VITALS: BP 114/67
--- NOTE | 2020-12-01 17:13 | CONS ---
DATE OF CONSULTATION: 11/30/2020 REFERRING PHYSICIAN: Dr. Guzmán/Dr. Erwin. REASON FOR CONSULTATION: Worsening of Parkinson's disease. HISTORY OF PRESENT ILLNESS: This is a 70-year-old right-handed male who is a resident at [facility], was admitted on 11/28/2020 on account of worsening of Parkinson disease, worsening of dementia and behavior disturbances. The patient has been restless, agitated and threatening his who lives in the same facility and other peers. A neuro consult was requested because the patient has worsening of his symptoms of Parkinson's, described as difficulty to communicate, increasing rigidity and some intermittent tremor of the extremities. He has been confined to a wheelchair. During the interview, the patient was not able to communicate or follow any commands. He was unable to provide any information. PAST MEDICAL HISTORY: Significant for dementia, possible of Alzheimer versus Lewy body dementia, intermittent psychosis and aggressive behavior towards his and peers from the facility. Other medical problems include Parkinson disease, diabetes mellitus type 2, gastroesophageal reflux disease, anoxic brain injuries, hypertension, dysphagia and hyperlipidemia. PAST SURGICAL HISTORY: Positive for pacemaker placement. SOCIAL HISTORY: The patient has no history of smoking, alcohol drinking or illicit drug use. He is a resident at [facility]. DICTATION ENDS HERE ALAINA/LEO DR: ITALIA/zachery TID: [id number] Appended Supervisor Looping - Dictated on 11/30/2020 11:15:17 PM ADDENDUM CURRENT MEDICATIONS: Lorazepam, mirtazapine, Celexa, vitamin B12, Seroquel, metoprolol, furosemide, TriCor, Plavix, vitamin D3, Crestor, niacin, melatonin, Levetiracetam, famotidine, Aricept, carbidopa/levodopa 25/100 b.i.d., baclofen 10 mg q.i.d., Zofran 4 mg p.r.n. ALLERGIES: LIPITOR AND ZIPRASIDONE. PHYSICAL EXAMINATION: GENERAL: Well-developed, well-nourished male in no acute distress. He weighs 81.7 kilos. VITAL SIGNS: Blood pressure is 113/71, respiratory rate 18, pulse rate 61, oxygen saturation 98%, temperature is 97.3. HEENT: Normocephalic, atraumatic, otherwise unremarkable. NECK: Supple, negative for carotid bruit, lymphadenopathy or thyromegaly. LUNGS: Clear to A and P. HEART: Regular rhythm. Normal S1, S2. There is no S3, S4 or murmur. ABDOMEN: Soft. Bowel sounds positive. EXTREMITIES: Negative for cyanosis, clubbing or pedal edema. NEUROLOGIC: Mental status: The patient is drowsy. He opens his eyes to verbal commands, but he is not verbal and cannot communicate or follow any commands. Further evaluation of his mental status is limited at this time. Cranial nerves: The pupils are equal and reactive to light. There is no nystagmus. Extraocular movements are slow. There is no facial motor or sensory deficit. Further evaluation is limited at this time. Motor examination: The patient is confined to the wheelchair. The strength in upper back 4/5 throughout. The tone is increased in the upper and lower extremities. Sensory examination revealed normal pinprick and light touch senses. Deep tendon reflexes were symmetric and hypoactive with absent Achilles responses. Gait not tested. LABORATORY DATA: CBC from 11/29/2020 revealed a white blood cells of 5500, hemoglobin of 14.1, hematocrit 42.2, platelet count 276,000. Chemistry revealed a sodium of 143, potassium 3.8, chloride 104, CO2 of 29, BUN 15, creatinine 1.1, glucose is 98, calcium 9.2. Iron is normal. Liver enzymes are normal. Lipid profiles are normal. Vitamin B12 of 624 with normal thyroid profile. Urinalysis is negative for urinary tract infection. RPR is nonreactive. IMPRESSION: 1. Dementia, probably of Alzheimer and Lewy body dementia. 2. Multiple medical problems include diabetes mellitus, hyperlipidemia, gastroesophageal reflux disease, longstanding history of Parkinson disease. The patient is on Keppra assuming he has history of seizure. RECOMMENDATION: 1. Continue with medical and psychiatric care. 2. We will increase Carbidopa/levodopa 25/100 t.i.d. 3. Physical therapy evaluation. Drew KINGSTON MD
[2020-12-01] MEDS: NIACIN ER 500 MG TABLET.ER PO SCH (20:39)
[2020-12-01] MEDS: DONEPEZIL HCL 10 MG TABLET PO SCH (20:39)
[2020-12-01] MEDS: FAMOTIDINE 20 MG TABLET PO SCH (20:40)
[2020-12-01] MEDS: MELATONIN 3 MG TABLET PO SCH (20:40)
[2020-12-01] MEDS: MIRTAZAPINE 7.5 MG TABLET. PO SCH (20:41)
[2020-12-01] MEDS: LORazepam 1 MG TABLET PO SCH (20:42)
[2020-12-01] MEDS: rOPINIRole 0.5 MG TABLET. PO SCH (20:42)
[2020-12-01] MEDS: NON FORMULARY ITEM (Rosuvastatin Calcium (Crestor) 40 MG) PO SCH (20:43)
[2020-12-01] MEDS: DIVALPROEX 125 MG CAP.SPRINK PO SCH (20:43)
--- NOTE | 2020-12-01 21:58 | PDOC ---
Exam Note: Carl Note: Please also refer to the separate dictated note~for this date of service dictated separately.~Patient seen individually. Discussed the patient with Nursing staff reviewed the chart.~Reviewed interim history and current functioning. Reviewed vital signs,~Labs/ Radiology~and current medications noted below. Continue current treatment with the changes noted in the dictated addendum note Assessment: Vital Signs/I&O: Vital Signs Date Time Temp Pulse Resp B/P (MAP) Pulse Ox O2 Delivery O2 Flow Rate FiO2 12/01/20 15:45 97.8 74 19 114/67 (83) 99 12/01/20 06:04 Room Air I & O 11/30/20 11/30/20 12/01/20 15:00 23:00 07:00 Intake Total 360 ml 780 ml Balance 360 ml 780 ml Labs: Laboratory Tests Test 12/01/20 07:27 12/01/20 19:32 Glucose (Fingerstick) 70 mg/dL (70-99) 127 mg/dL (70-99) H Current Medications: Meds: Laboratory Tests Test 12/01/20 07:27 12/01/20 19:32 Glucose (Fingerstick) 70 mg/dL 127 mg/dL Current Medications Medications (Trade) Dose Ordered Sig/Vincenzo Route PRN Reason Start Time Stop Time Status Last Admin Dose Admin Acetaminophen (Tylenol) 650 mg PRN Q6HRS PRN PO MILD PAIN / TEMP > 100.3'F 11/28/20 16:45 Multi-Ingredient Ointment (Analgesic [place]) 1 esther PRN QID PRN TP MUSCLE PAIN 11/28/20 16:45 Al Hydroxide/Mg Hydroxide (Mylanta Plus Xs) 15 ml PRN AFTMEALHC PRN PO DYSPEPSIA 11/28/20 16:45 Magnesium Hydroxide (Milk Of Magnesia) 2,400 mg PRN QHS PRN PO CONSTIPATION 11/28/20 16:45 Acetaminophen (Tylenol) 500 mg Q4HRS PRN PO PAIN/FEVER 11/28/20 18:00 12/01/20 09:05 Baclofen (Lioresal) 10 mg QID PO 11/28/20 21:00 12/01/20 20:38 Bisacodyl (Dulcolax Supp) 10 mg PRN DAILY PRN RC CONSTIPATION 11/28/20 18:00 Carbidopa/Levodopa (Sinemet 25/100) 1 tab BID PO 11/28/20 21:00 12/01/20 18:16 DC 12/01/20 09:06 Vitamin D (Vitamin D3) 1,000 unit DAILY PO 11/29/20 09:00 12/01/20 09:05 Clopidogrel Bisulfate (Plavix) 75 mg DAILY PO 11/29/20 09:00 12/01/20 09:06 Donepezil HCl (Aricept) 10 mg QHS PO 11/28/20 21:00 12/01/20 20:39 Fenofibrate (Tricor) 145 mg DAILY PO 11/29/20 09:00 12/01/20 09:04 Furosemide (Lasix) 20 mg DAILY PO 11/29/20 09:00 12/01/20 09:06 Lorazepam (Ativan) 1 mg BID PO 11/28/20 21:00 11/30/20 18:02 DC 11/30/20 08:25 Al Hydroxide/Mg Hydroxide (Mylanta Plus Xs) 30 ml PRN Q2HRS PRN PO UPSET STOMACH 11/28/20 18:00 Metoprolol Succinate (Toprol Xl) 25 mg DAILY PO 11/29/20 09:00 12/01/20 09:05 Nitroglycerin (Nitrostat) 0.4 mg PRN Q5MIN PRN SL CHEST PAIN 11/28/20 18:00 Quetiapine Fumarate (SEROquel) 50 mg DAILY PO 11/29/20 09:00 12/01/20 09:05 Ropinirole HCl (Requip) 0.5 mg HS PO 11/28/20 21:00 12/01/20 20:42 Senna/Docusate Sodium (Senna Plus) 1 tab BID PO 11/28/20 21:00 12/01/20 20:42 Temazepam (Restoril) 7.5 mg QHS PO 11/28/20 21:00 11/28/20 20:32 DC Triamcinolone Acetonide (Kenalog) 1 esther PRN BID PRN TP BILAT ANKLE RASH 11/28/20 18:00 Cyanocobalamin (Vitamin B-12) 1,000 mcg DAILY PO 11/29/20 09:00 12/01/20 09:05 Zinc Acetate/ Diphenhydramine (Benadryl Topical) 1 esther PRN TID PRN TP BILAT ANKLE RASH ITCHING 11/28/20 18:45 Citalopram Hydrobromide (CeleXA) 10 mg DAILY PO 11/29/20 09:00 12/01/20 09:06 Famotidine (Pepcid) 40 mg HS PO 11/28/20 21:00 12/01/20 20:40 Lactobacillus Rhamnosus (Culturelle) 2 cap BID PO 11/28/20 21:00 12/01/20 20:39 Levetiracetam (Keppra) 1,000 mg BID PO 11/28/20 21:00 12/01/20 20:41 Melatonin (Melatonin) 6 mg QHS PO 11/28/20 21:00 12/01/20 20:40 Niacin (Slo-Niacin) 250 mg QHS PO 11/28/20 21:00 12/01/20 20:39 Ondansetron HCl (Zofran Odt) 4 mg PRN Q4HRS PRN PO NAUSEA/VOMITING 11/28/20 18:45 Polyethylene Glycol (miraLAX) 17 gm DAILY PO 11/29/20 09:00 12/01/20 09:06 Non-Formulary Medication (Rosuvastatin Calcium (Crestor)) 40 mg HS PO 11/28/20 21:00 UNV Temazepam (Restoril) 7.5 mg QHS PO 11/28/20 21:00 11/30/20 18:01 DC 11/29/20 21:13 Lorazepam (Ativan) 1 mg QHS PO 11/30/20 21:00 12/01/20 20:42 Lorazepam (Ativan) 0.5 mg DAILY PO 12/01/20 09:00 12/01/20 09:04 Mirtazapine (Remeron) 7.5 mg QHS PO 11/30/20 21:00 12/01/20 20:41 Divalproex Sodium (Depakote Sprinkles) 500 mg HS PO 12/01/20 21:00 12/01/20 20:43 Carbidopa/Levodopa (Sinemet 25/100) 1 tab TID PO 12/01/20 21:00 12/01/20 20:41 Current Medications Medications (Trade) Dose Ordered Sig/Vincenzo Route PRN Reason Start Time Stop Time Status Last Admin Dose Admin Lorazepam (Ativan) 0.5 mg DAILY PO 12/01/20 09:00 12/01/20 09:04 Divalproex Sodium (Depakote Sprinkles) 500 mg HS PO 12/01/20 21:00 12/01/20 20:43 Carbidopa/Levodopa (Sinemet 25/100) 1 tab TID PO 12/01/20 21:00 12/01/20 20:41 I have reviewed the current psychotropics carefully including drug interactions. Risk benefit ratio favors no change other than as noted in my dictated progress note. Diagnosis: Problems: (1) Impulse control disorder, unspecified (2) Anxiety disorder, unspecified (3) Major neurocognitive disorder (4) Lewy body dementia with behavioral disturbance (5) Dementia, vascular, with delusions (6) Dementia, vascular, with delirium (7) Dementia in Alzheimer's disease with depression (8) Dementia in Alzheimer's disease with delusions (9) Parkinson's disease GIGI MCCOY MD Dec 01, 2020 21:58
[2020-12-02 05:58] VITALS: BP 128/82
--- NOTE | 2020-12-02 07:12 | PDOC ---
Exam Note: Carl Note: This note is a late entry for 12/01/2020 covers elements not covered in my initial note. Subjective: The patient was reviewed in the morning of 12/01/2020 for a treatment team meeting with Nichole Gunter, Eloisa Carver and Lucía (licensed master social worker), Brynn, activity therapy and Rizwana WISDOM, discussed and reviewed the chart. He slept 6 hours previous night. The patients [id number] power of banking attorney Letty attended the treatment team meeting and as did the social service agency director Wendi. We got a very pertinent and appropriate history from Wendi and Letty about patients recent grandiose, manic symptoms. He was threatening to kill his , getting around the correction trying to find her. Review of Systems: Ambulation impaired in wheelchair. No CV, , pulmonary, eye system symptoms on review. Reliability poor. Mental Status Exam: The patient is reasonably oriented. Speech is coherent, rapid at times. Abstraction fair. Computation impaired. Language function intact. Mood and affect remains grandiose, labile. Laboratory Data: Reviewed. 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 Anxiety disorder unspecified. Impulse control disorder unspecified. Plan: Dr. Florian has increased his Sinemet to t.i.d. We will initiate Depakote 500 mg h.s. for his schizoaffective disorder bipolar type and check CBC, CMP, valproic acid level, ammonia level in 3 days. It was noted in the history that he had a fall 3 weeks ago but no residual injury noted. We will adjust psychotropics further as clinically indicated. Assessment: Vital Signs/I&O: Vital Signs Date Time Temp Pulse Resp B/P (MAP) Pulse Ox O2 Delivery O2 Flow Rate FiO2 12/02/20 05:58 96.9 85 18 128/82 (97) 99 Room Air I & O 12/01/20 12/01/20 12/02/20 15:00 23:00 07:00 Intake Total 600 ml 240 ml 120 ml Balance 600 ml 240 ml 120 ml Labs: Laboratory Tests Test 12/01/20 07:27 12/01/20 19:32 Glucose (Fingerstick) 70 mg/dL (70-99) 127 mg/dL (70-99) H Current Medications: Meds: Laboratory Tests Test 12/01/20 07:27 12/01/20 19:32 Glucose (Fingerstick) 70 mg/dL 127 mg/dL Current Medications Medications (Trade) Dose Ordered Sig/Vincenzo Route PRN Reason Start Time Stop Time Status Last Admin Dose Admin Acetaminophen (Tylenol) 650 mg PRN Q6HRS PRN PO MILD PAIN / TEMP > 100.3'F 11/28/20 16:45 Multi-Ingredient Ointment (Analgesic [place]) 1 esther PRN QID PRN TP MUSCLE PAIN 11/28/20 16:45 Al Hydroxide/Mg Hydroxide (Mylanta Plus Xs) 15 ml PRN AFTMEALHC PRN PO DYSPEPSIA 11/28/20 16:45 Magnesium Hydroxide (Milk Of Magnesia) 2,400 mg PRN QHS PRN PO CONSTIPATION 11/28/20 16:45 Acetaminophen (Tylenol) 500 mg Q4HRS PRN PO PAIN/FEVER 11/28/20 18:00 12/01/20 09:05 Baclofen (Lioresal) 10 mg QID PO 11/28/20 21:00 12/01/20 20:38 Bisacodyl (Dulcolax Supp) 10 mg PRN DAILY PRN RC CONSTIPATION 11/28/20 18:00 Carbidopa/Levodopa (Sinemet 25/100) 1 tab BID PO 11/28/20 21:00 12/01/20 18:16 DC 12/01/20 09:06 Vitamin D (Vitamin D3) 1,000 unit DAILY PO 11/29/20 09:00 12/01/20 09:05 Clopidogrel Bisulfate (Plavix) 75 mg DAILY PO 11/29/20 09:00 12/01/20 09:06 Donepezil HCl (Aricept) 10 mg QHS PO 11/28/20 21:00 12/01/20 20:39 Fenofibrate (Tricor) 145 mg DAILY PO 11/29/20 09:00 12/01/20 09:04 Furosemide (Lasix) 20 mg DAILY PO 11/29/20 09:00 12/01/20 09:06 Lorazepam (Ativan) 1 mg BID PO 11/28/20 21:00 11/30/20 18:02 DC 11/30/20 08:25 Al Hydroxide/Mg Hydroxide (Mylanta Plus Xs) 30 ml PRN Q2HRS PRN PO UPSET STOMACH 11/28/20 18:00 Metoprolol Succinate (Toprol Xl) 25 mg DAILY PO 11/29/20 09:00 12/01/20 09:05 Nitroglycerin (Nitrostat) 0.4 mg PRN Q5MIN PRN SL CHEST PAIN 11/28/20 18:00 Quetiapine Fumarate (SEROquel) 50 mg DAILY PO 11/29/20 09:00 12/01/20 09:05 Ropinirole HCl (Requip) 0.5 mg HS PO 11/28/20 21:00 12/01/20 20:42 Senna/Docusate Sodium (Senna Plus) 1 tab BID PO 11/28/20 21:00 12/01/20 20:42 Temazepam (Restoril) 7.5 mg QHS PO 11/28/20 21:00 11/28/20 20:32 DC Triamcinolone Acetonide (Kenalog) 1 esther PRN BID PRN TP BILAT ANKLE RASH 11/28/20 18:00 Cyanocobalamin (Vitamin B-12) 1,000 mcg DAILY PO 11/29/20 09:00 12/01/20 09:05 Zinc Acetate/ Diphenhydramine (Benadryl Topical) 1 esther PRN TID PRN TP BILAT ANKLE RASH ITCHING 11/28/20 18:45 Citalopram Hydrobromide (CeleXA) 10 mg DAILY PO 11/29/20 09:00 12/01/20 09:06 Famotidine (Pepcid) 40 mg HS PO 11/28/20 21:00 12/01/20 20:40 Lactobacillus Rhamnosus (Culturelle) 2 cap BID PO 11/28/20 21:00 12/01/20 20:39 Levetiracetam (Keppra) 1,000 mg BID PO 11/28/20 21:00 12/01/20 20:41 Melatonin (Melatonin) 6 mg QHS PO 11/28/20 21:00 12/01/20 20:40 Niacin (Slo-Niacin) 250 mg QHS PO 11/28/20 21:00 12/01/20 20:39 Ondansetron HCl (Zofran Odt) 4 mg PRN Q4HRS PRN PO NAUSEA/VOMITING 11/28/20 18:45 Polyethylene Glycol (miraLAX) 17 gm DAILY PO 11/29/20 09:00 12/01/20 09:06 Non-Formulary Medication (Rosuvastatin Calcium (Crestor)) 40 mg HS PO 11/28/20 21:00 UNV Temazepam (Restoril) 7.5 mg QHS PO 11/28/20 21:00 11/30/20 18:01 DC 11/29/20 21:13 Lorazepam (Ativan) 1 mg QHS PO 11/30/20 21:00 12/01/20 20:42 Lorazepam (Ativan) 0.5 mg DAILY PO 12/01/20 09:00 12/01/20 09:04 Mirtazapine (Remeron) 7.5 mg QHS PO 11/30/20 21:00 12/01/20 20:41 Divalproex Sodium (Depakote Sprinkles) 500 mg HS PO 12/01/20 21:00 12/01/20 20:43 Carbidopa/Levodopa (Sinemet 25/100) 1 tab TID PO 12/01/20 21:00 12/01/20 20:41 Current Medications Medications (Trade) Dose Ordered Sig/Vincenzo Route PRN Reason Start Time Stop Time Status Last Admin Dose Admin Lorazepam (Ativan) 0.5 mg DAILY PO 12/01/20 09:00 12/01/20 09:04 Divalproex Sodium (Depakote Sprinkles) 500 mg HS PO 12/01/20 21:00 12/01/20 20:43 Carbidopa/Levodopa (Sinemet 25/100) 1 tab TID PO 12/01/20 21:00 12/01/20 20:41 I have reviewed the current psychotropics carefully including drug interactions. Risk benefit ratio favors no change other than as noted in my dictated progress note. Diagnosis: Problems: (1) Impulse control disorder, unspecified (2) Anxiety disorder, unspecified (3) Major neurocognitive disorder (4) Lewy body dementia with behavioral disturbance (5) Dementia, vascular, with delusions (6) Dementia, vascular, with delirium (7) Dementia in Alzheimer's disease with depression (8) Dementia in Alzheimer's disease with delusions (9) Parkinson's disease GIGI MCCOY MD Dec 02, 2020 07:12
[2020-12-02] MEDS: FUROSEMIDE 20 MG TABLET PO SCH (08:22)
[2020-12-02] MEDS: BACLOFEN 10 MG TABLET PO SCH ×4 (08:22→20:05)
[2020-12-02] MEDS: CYANOCOBALAMIN (VITAMIN B-12) 1,000 MCG TABLET. PO SCH (08:22)
[2020-12-02] MEDS: CARBIDOPA/LEVODOPA 25/100MG TABLET PO SCH ×3 (08:22→20:05)
[2020-12-02] MEDS: POLYETHYLENE GLYCOL 3350 17 GM PACKET. PO SCH (08:22)
[2020-12-02] MEDS: CHOLECALCIFEROL (VITAMIN D3) 1,000 UNIT TABLET PO SCH (08:22)
[2020-12-02] MEDS: FENOFIBRATE NANOCRYSTALLIZED 145 MG TABLET PO SCH (08:22)
[2020-12-02] MEDS: CITALOPRAM 10 MG TABLET. PO SCH (08:23)
[2020-12-02] MEDS: SENNOSIDES/DOCUSATE 8.6/50MG TABLET. PO SCH ×2 (08:23→20:03)
[2020-12-02] MEDS: METOPROLOL SUCC 24HR ER 25 MG TAB.ER.24H. PO SCH (08:23)
[2020-12-02] MEDS: LACTOBACILLUS RHAMNOSUS GG 1 CAPSULE. PO SCH ×2 (08:23→20:02)
[2020-12-02] MEDS: LORazepam 0.5 MG TABLET PO SCH (08:23)
[2020-12-02] MEDS: QUEtiapine 50 MG TABLET. PO SCH (08:23)
[2020-12-02] MEDS: CLOPIDOGREL BISULFATE 75 MG TABLET PO SCH (08:23)
[2020-12-02] MEDS: levETIRAcetam 500 MG TABLET PO SCH ×2 (08:24→20:03)
[2020-12-02 15:33] VITALS: BP 92/60
--- NOTE | 2020-12-02 16:47 | PN ---
DATE: 12/01/2020 SUBJECTIVE: The patient is in wheelchair. He is not communicative or provide any information. OBJECTIVE: GENERAL: Well-developed, well-nourished male, in no acute distress. He is sitting in a wheelchair. He has intermittent tremor of the hands. He does follow one simple verbal commands. VITAL SIGNS: Blood pressure 113/72, respiratory rate 18, pulse is 61 and regular, temperature 97.3, oxygen saturation is 97%. HEENT: Normocephalic, atraumatic, otherwise unremarkable. NECK: Supple, negative for carotid bruit, lymphadenopathy or thyromegaly. LUNGS: Clear to A and P. CARDIOVASCULAR: Regular rhythm. Normal S1, S2. ABDOMEN: Soft. Bowel sounds positive. EXTREMITIES: Negative for cyanosis, clubbing or pedal edema. NEUROLOGIC: The patient is sitting in a wheelchair, noncommunicative. No facial motor or sensory deficit. The tone is increased in the lower extremities. The patient has intermittent resting tremor of the hands of mild severity. Sensory examination revealed normal to pinprick and light touch. Deep tendon reflexes were symmetric and hypoactive with absent Achilles responses. Gait is not tested as the patient is confined to wheelchair. IMPRESSION: 1. Dementia, probably of Alzheimer type and/or Lewy body dementia. 2. Multiple medical problems include diabetes mellitus, hyperlipidemia, gastroesophageal reflux disease, longstanding history of Parkinson disease and possible history of seizure. RECOMMENDATION: 1. Increase carbidopa levodopa 25/100 t.i.d. 2. Physical therapy as tolerated. 3. Continue with current medical and psychiatric care. ITALIA/KATIE/JOE DR: Alexy TID: [id number]
[2020-12-02 18:16] VITALS: BP 114/60
[2020-12-02] MEDS: NON FORMULARY ITEM (Rosuvastatin Calcium (Crestor) 40 MG) PO SCH (19:40)
[2020-12-02] MEDS: rOPINIRole 0.5 MG TABLET. PO SCH (20:02)
[2020-12-02] MEDS: MELATONIN 3 MG TABLET PO SCH (20:03)
[2020-12-02] MEDS: FAMOTIDINE 20 MG TABLET PO SCH (20:04)
[2020-12-02] MEDS: DONEPEZIL HCL 10 MG TABLET PO SCH (20:05)
[2020-12-02] MEDS: LORazepam 1 MG TABLET PO SCH (20:06)
[2020-12-02] MEDS: MIRTAZAPINE 7.5 MG TABLET. PO SCH (20:06)
[2020-12-02] MEDS: NIACIN ER 500 MG TABLET.ER PO SCH (20:06)
[2020-12-02] MEDS: DIVALPROEX 125 MG CAP.SPRINK PO SCH (20:07)
--- NOTE | 2020-12-02 22:04 | PDOC ---
Exam Note: Carl Note: Please also refer to the separate dictated note~for this date of service dictated separately.~Patient seen individually. Discussed the patient with Nursing staff reviewed the chart.~Reviewed interim history and current functioning. Reviewed vital signs,~Labs/ Radiology~and current medications noted below. Continue current treatment with the changes noted in the dictated addendum note Assessment: Vital Signs/I&O: Vital Signs Date Time Temp Pulse Resp B/P (MAP) Pulse Ox O2 Delivery O2 Flow Rate FiO2 12/02/20 18:16 96 114/60 (78) 12/02/20 15:33 97.2 17 97 Room Air I & O 12/01/20 12/01/20 12/02/20 15:00 23:00 07:00 Intake Total 600 ml 240 ml 120 ml Balance 600 ml 240 ml 120 ml Labs: Laboratory Tests Test 12/02/20 07:36 12/02/20 19:11 Glucose (Fingerstick) 97 mg/dL (70-99) 144 mg/dL (70-99) H Current Medications: Meds: Laboratory Tests Test 12/02/20 07:36 12/02/20 19:11 Glucose (Fingerstick) 97 mg/dL 144 mg/dL Current Medications Medications (Trade) Dose Ordered Sig/Vincenzo Route PRN Reason Start Time Stop Time Status Last Admin Dose Admin Acetaminophen (Tylenol) 650 mg PRN Q6HRS PRN PO MILD PAIN / TEMP > 100.3'F 11/28/20 16:45 Multi-Ingredient Ointment (Analgesic [place]) 1 esther PRN QID PRN TP MUSCLE PAIN 11/28/20 16:45 Al Hydroxide/Mg Hydroxide (Mylanta Plus Xs) 15 ml PRN AFTMEALHC PRN PO DYSPEPSIA 11/28/20 16:45 Magnesium Hydroxide (Milk Of Magnesia) 2,400 mg PRN QHS PRN PO 1ST CHOICE CONSTIPATION 11/28/20 16:45 Acetaminophen (Tylenol) 500 mg Q4HRS PRN PO PAIN/FEVER 11/28/20 18:00 12/01/20 09:05 Baclofen (Lioresal) 10 mg QID PO 11/28/20 21:00 12/02/20 20:05 Bisacodyl (Dulcolax Supp) 10 mg PRN DAILY PRN RC 2ND CHOICE CONSTIPATION 11/28/20 18:00 Carbidopa/Levodopa (Sinemet 25/100) 1 tab BID PO 11/28/20 21:00 12/01/20 18:16 DC 12/01/20 09:06 Vitamin D (Vitamin D3) 1,000 unit DAILY PO 11/29/20 09:00 12/02/20 08:22 Clopidogrel Bisulfate (Plavix) 75 mg DAILY PO 11/29/20 09:00 12/02/20 08:23 Donepezil HCl (Aricept) 10 mg QHS PO 11/28/20 21:00 12/02/20 20:05 Fenofibrate (Tricor) 145 mg DAILY PO 11/29/20 09:00 12/02/20 08:22 Furosemide (Lasix) 20 mg DAILY PO 11/29/20 09:00 12/02/20 08:22 Lorazepam (Ativan) 1 mg BID PO 11/28/20 21:00 11/30/20 18:02 DC 11/30/20 08:25 Al Hydroxide/Mg Hydroxide (Mylanta Plus Xs) 30 ml PRN Q2HRS PRN PO UPSET STOMACH 11/28/20 18:00 Metoprolol Succinate (Toprol Xl) 25 mg DAILY PO 11/29/20 09:00 12/02/20 08:23 Nitroglycerin (Nitrostat) 0.4 mg PRN Q5MIN PRN SL CHEST PAIN 11/28/20 18:00 Quetiapine Fumarate (SEROquel) 50 mg DAILY PO 11/29/20 09:00 12/02/20 08:23 Ropinirole HCl (Requip) 0.5 mg HS PO 11/28/20 21:00 12/02/20 20:02 Senna/Docusate Sodium (Senna Plus) 1 tab BID PO 11/28/20 21:00 12/02/20 20:03 Temazepam (Restoril) 7.5 mg QHS PO 11/28/20 21:00 11/28/20 20:32 DC Triamcinolone Acetonide (Kenalog) 1 esther PRN BID PRN TP BILAT ANKLE RASH 11/28/20 18:00 Cyanocobalamin (Vitamin B-12) 1,000 mcg DAILY PO 11/29/20 09:00 12/02/20 08:22 Zinc Acetate/ Diphenhydramine (Benadryl Topical) 1 esther PRN TID PRN TP BILAT ANKLE RASH ITCHING 11/28/20 18:45 Citalopram Hydrobromide (CeleXA) 10 mg DAILY PO 11/29/20 09:00 12/02/20 17:44 DC 12/02/20 08:23 Famotidine (Pepcid) 40 mg HS PO 11/28/20 21:00 12/02/20 20:04 Lactobacillus Rhamnosus (Culturelle) 2 cap BID PO 11/28/20 21:00 12/02/20 20:02 Levetiracetam (Keppra) 1,000 mg BID PO 11/28/20 21:00 12/02/20 20:03 Melatonin (Melatonin) 6 mg QHS PO 11/28/20 21:00 12/02/20 20:03 Niacin (Slo-Niacin) 250 mg QHS PO 11/28/20 21:00 12/02/20 20:06 Ondansetron HCl (Zofran Odt) 4 mg PRN Q4HRS PRN PO NAUSEA/VOMITING 11/28/20 18:45 Polyethylene Glycol (miraLAX) 17 gm DAILY PO 11/29/20 09:00 12/02/20 08:22 Non-Formulary Medication (Rosuvastatin Calcium (Crestor)) 40 mg HS PO 11/28/20 21:00 UNV Temazepam (Restoril) 7.5 mg QHS PO 11/28/20 21:00 11/30/20 18:01 DC 11/29/20 21:13 Lorazepam (Ativan) 1 mg QHS PO 11/30/20 21:00 12/02/20 20:06 Lorazepam (Ativan) 0.5 mg DAILY PO 12/01/20 09:00 12/02/20 08:23 Mirtazapine (Remeron) 7.5 mg QHS PO 11/30/20 21:00 12/02/20 20:06 Divalproex Sodium (Depakote Sprinkles) 500 mg HS PO 12/01/20 21:00 12/02/20 20:07 Carbidopa/Levodopa (Sinemet 25/100) 1 tab TID PO 12/01/20 21:00 12/02/20 20:05 Bupropion HCl (Wellbutrin Xl) 150 mg DAILY PO 12/03/20 09:00 UNV I have reviewed the current psychotropics carefully including drug interactions. Risk benefit ratio favors no change other than as noted in my dictated progress note. 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
[2020-12-03 06:12] VITALS: BP 121/72
--- NOTE | 2020-12-03 07:05 | PDOC ---
Exam Note: Carl Note: This note is a late entry for 12/02/2020 covers elements not covered in my initial note. Subjective: The patient was seen individually in the evening of 12/02/2020 with Chyna WISDOM, discussed and reviewed the chart. The patient slept 2 hours previous night. The patient had a telephone call with his sister, very happy about this. He is compliant with his medications but was complaining he was given extra anti-hypertensive last night, perhaps extra trazodone that made him overtly sedated. I did discuss this with nursing staff. Otherwise he is cooperative. Xanax at 2 p.m. was held because he was sedated. Review of Systems: No CV, , pulmonary, eye, ENT system symptoms on review. Mental Status Exam: The patient is reasonably oriented. Speech coherent, has some latency. Abstraction fair. Computation impaired. Language function intact. Mood and affect less grandiose, labile. Laboratory Data: Reviewed. Impression: Bipolar disorder mixed with psychotic features. Anxiety disorder unspecified. Impulse control disorder unspecified. Schizoaffective disorder, bipolar type, manic with psychotic features. Plan: No change from initial note. The patient is on Xanax 0.5 mg t.i.d. We will drop it down to b.i.d. for 3 days, once a day for 3 days and stop it. Maintain rest of the psychotropics unchanged for now. Assessment: Vital Signs/I&O: Vital Signs Date Time Temp Pulse Resp B/P (MAP) Pulse Ox O2 Delivery O2 Flow Rate FiO2 12/03/20 06:12 97.9 121/72 (88) 12/02/20 18:16 96 12/02/20 15:33 17 97 Room Air I & O 12/02/20 12/02/20 12/03/20 15:00 23:00 07:00 Intake Total 480 ml 360 ml Balance 480 ml 360 ml Labs: Laboratory Tests Test 12/02/20 07:36 12/02/20 19:11 Glucose (Fingerstick) 97 mg/dL (70-99) 144 mg/dL (70-99) H Current Medications: Meds: Laboratory Tests Test 12/02/20 07:36 12/02/20 19:11 Glucose (Fingerstick) 97 mg/dL 144 mg/dL Current Medications Medications (Trade) Dose Ordered Sig/Vincenzo Route PRN Reason Start Time Stop Time Status Last Admin Dose Admin Acetaminophen (Tylenol) 650 mg PRN Q6HRS PRN PO MILD PAIN / TEMP > 100.3'F 11/28/20 16:45 Multi-Ingredient Ointment (Analgesic [place]) 1 esther PRN QID PRN TP MUSCLE PAIN 11/28/20 16:45 Al Hydroxide/Mg Hydroxide (Mylanta Plus Xs) 15 ml PRN AFTMEALHC PRN PO DYSPEPSIA 11/28/20 16:45 Magnesium Hydroxide (Milk Of Magnesia) 2,400 mg PRN QHS PRN PO 1ST CHOICE CONSTIPATION 11/28/20 16:45 Acetaminophen (Tylenol) 500 mg Q4HRS PRN PO PAIN/FEVER 11/28/20 18:00 12/01/20 09:05 Baclofen (Lioresal) 10 mg QID PO 11/28/20 21:00 12/02/20 20:05 Bisacodyl (Dulcolax Supp) 10 mg PRN DAILY PRN RC 2ND CHOICE CONSTIPATION 11/28/20 18:00 Carbidopa/Levodopa (Sinemet 25/100) 1 tab BID PO 11/28/20 21:00 12/01/20 18:16 DC 12/01/20 09:06 Vitamin D (Vitamin D3) 1,000 unit DAILY PO 11/29/20 09:00 12/02/20 08:22 Clopidogrel Bisulfate (Plavix) 75 mg DAILY PO 11/29/20 09:00 12/02/20 08:23 Donepezil HCl (Aricept) 10 mg QHS PO 11/28/20 21:00 12/02/20 20:05 Fenofibrate (Tricor) 145 mg DAILY PO 11/29/20 09:00 12/02/20 08:22 Furosemide (Lasix) 20 mg DAILY PO 11/29/20 09:00 12/02/20 08:22 Lorazepam (Ativan) 1 mg BID PO 11/28/20 21:00 11/30/20 18:02 DC 11/30/20 08:25 Al Hydroxide/Mg Hydroxide (Mylanta Plus Xs) 30 ml PRN Q2HRS PRN PO UPSET STOMACH 11/28/20 18:00 Metoprolol Succinate (Toprol Xl) 25 mg DAILY PO 11/29/20 09:00 12/02/20 08:23 Nitroglycerin (Nitrostat) 0.4 mg PRN Q5MIN PRN SL CHEST PAIN 11/28/20 18:00 Quetiapine Fumarate (SEROquel) 50 mg DAILY PO 11/29/20 09:00 12/02/20 08:23 Ropinirole HCl (Requip) 0.5 mg HS PO 11/28/20 21:00 12/02/20 20:02 Senna/Docusate Sodium (Senna Plus) 1 tab BID PO 11/28/20 21:00 12/02/20 20:03 Temazepam (Restoril) 7.5 mg QHS PO 11/28/20 21:00 11/28/20 20:32 DC Triamcinolone Acetonide (Kenalog) 1 esther PRN BID PRN TP BILAT ANKLE RASH 11/28/20 18:00 Cyanocobalamin (Vitamin B-12) 1,000 mcg DAILY PO 11/29/20 09:00 12/02/20 08:22 Zinc Acetate/ Diphenhydramine (Benadryl Topical) 1 esther PRN TID PRN TP BILAT ANKLE RASH ITCHING 11/28/20 18:45 Citalopram Hydrobromide (CeleXA) 10 mg DAILY PO 11/29/20 09:00 12/02/20 17:44 DC 12/02/20 08:23 Famotidine (Pepcid) 40 mg HS PO 11/28/20 21:00 12/02/20 20:04 Lactobacillus Rhamnosus (Culturelle) 2 cap BID PO 11/28/20 21:00 12/02/20 20:02 Levetiracetam (Keppra) 1,000 mg BID PO 11/28/20 21:00 12/02/20 20:03 Melatonin (Melatonin) 6 mg QHS PO 11/28/20 21:00 12/02/20 20:03 Niacin (Slo-Niacin) 250 mg QHS PO 11/28/20 21:00 12/02/20 20:06 Ondansetron HCl (Zofran Odt) 4 mg PRN Q4HRS PRN PO NAUSEA/VOMITING 11/28/20 18:45 Polyethylene Glycol (miraLAX) 17 gm DAILY PO 11/29/20 09:00 12/02/20 08:22 Non-Formulary Medication (Rosuvastatin Calcium (Crestor)) 40 mg HS PO 11/28/20 21:00 UNV Temazepam (Restoril) 7.5 mg QHS PO 11/28/20 21:00 11/30/20 18:01 DC 11/29/20 21:13 Lorazepam (Ativan) 1 mg QHS PO 11/30/20 21:00 12/02/20 20:06 Lorazepam (Ativan) 0.5 mg DAILY PO 12/01/20 09:00 12/02/20 08:23 Mirtazapine (Remeron) 7.5 mg QHS PO 11/30/20 21:00 12/02/20 20:06 Divalproex Sodium (Depakote Sprinkles) 500 mg HS PO 12/01/20 21:00 12/02/20 20:07 Carbidopa/Levodopa (Sinemet 25/100) 1 tab TID PO 12/01/20 21:00 12/02/20 20:05 Bupropion HCl (Wellbutrin Xl) 150 mg DAILY PO 12/03/20 09:00 I have reviewed the current psychotropics carefully including drug interactions. Risk benefit ratio favors no change other than as noted in my dictated progress note. 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
[2020-12-03] MEDS: LORazepam 0.5 MG TABLET PO SCH (08:39)
[2020-12-03] MEDS: CHOLECALCIFEROL (VITAMIN D3) 1,000 UNIT TABLET PO SCH (08:39)
[2020-12-03] MEDS: QUEtiapine 50 MG TABLET. PO SCH (08:40)
[2020-12-03] MEDS: FENOFIBRATE NANOCRYSTALLIZED 145 MG TABLET PO SCH (08:40)
[2020-12-03] MEDS: CLOPIDOGREL BISULFATE 75 MG TABLET PO SCH (08:40)
[2020-12-03] MEDS: buPROPion XL 150 MG TAB.ER.24H PO SCH (08:40)
[2020-12-03] MEDS: LACTOBACILLUS RHAMNOSUS GG 1 CAPSULE. PO SCH ×2 (08:40→20:16)
[2020-12-03] MEDS: METOPROLOL SUCC 24HR ER 25 MG TAB.ER.24H. PO SCH (08:40)
[2020-12-03] MEDS: CARBIDOPA/LEVODOPA 25/100MG TABLET PO SCH ×3 (08:40→20:18)
[2020-12-03] MEDS: SENNOSIDES/DOCUSATE 8.6/50MG TABLET. PO SCH ×2 (08:40→20:19)
[2020-12-03] MEDS: CYANOCOBALAMIN (VITAMIN B-12) 1,000 MCG TABLET. PO SCH (08:40)
[2020-12-03] MEDS: BACLOFEN 10 MG TABLET PO SCH ×4 (08:40→20:19)
[2020-12-03] MEDS: FUROSEMIDE 20 MG TABLET PO SCH (08:41)
[2020-12-03] MEDS: levETIRAcetam 500 MG TABLET PO SCH ×2 (08:41→20:16)
[2020-12-03] MEDS: POLYETHYLENE GLYCOL 3350 17 GM PACKET. PO SCH (08:41)
[2020-12-03 15:26] VITALS: BP 109/66
[2020-12-03] MEDS: NON FORMULARY ITEM (Rosuvastatin Calcium (Crestor) 40 MG) PO SCH (19:50)
[2020-12-03] MEDS: DONEPEZIL HCL 10 MG TABLET PO SCH (20:17)
[2020-12-03] MEDS: MELATONIN 3 MG TABLET PO SCH (20:17)
[2020-12-03] MEDS: rOPINIRole 0.5 MG TABLET. PO SCH (20:17)
[2020-12-03] MEDS: LORazepam 1 MG TABLET PO SCH (20:18)
[2020-12-03] MEDS: FAMOTIDINE 20 MG TABLET PO SCH (20:18)
[2020-12-03] MEDS: MIRTAZAPINE 7.5 MG TABLET. PO SCH (20:19)
[2020-12-03] MEDS: NIACIN ER 500 MG TABLET.ER PO SCH (20:19)
[2020-12-03] MEDS: DIVALPROEX 125 MG CAP.SPRINK PO SCH (20:20)
--- NOTE | 2020-12-03 22:03 | PDOC ---
Exam Note: Carl Note: Please also refer to the separate dictated note~for this date of service dictated separately.~Patient seen individually. Discussed the patient with Nursing staff reviewed the chart.~Reviewed interim history and current functioning. Reviewed vital signs,~Labs/ Radiology~and current medications noted below. Continue current treatment with the changes noted in the dictated addendum note Assessment: Vital Signs/I&O: Vital Signs Date Time Temp Pulse Resp B/P (MAP) Pulse Ox O2 Delivery O2 Flow Rate FiO2 12/03/20 15:26 96.9 60 16 109/66 (80) 98 Room Air I & O 12/02/20 12/02/20 12/03/20 15:00 23:00 07:00 Intake Total 480 ml 360 ml Balance 480 ml 360 ml Labs: Laboratory Tests Test 12/03/20 07:13 12/03/20 19:32 Glucose (Fingerstick) 86 mg/dL (70-99) 109 mg/dL (70-99) H Current Medications: Meds: Laboratory Tests Test 12/03/20 07:13 12/03/20 19:32 Glucose (Fingerstick) 86 mg/dL 109 mg/dL Current Medications Medications (Trade) Dose Ordered Sig/Vincenzo Route PRN Reason Start Time Stop Time Status Last Admin Dose Admin Acetaminophen (Tylenol) 650 mg PRN Q6HRS PRN PO MILD PAIN / TEMP > 100.3'F 11/28/20 16:45 Multi-Ingredient Ointment (Analgesic [place]) 1 esther PRN QID PRN TP MUSCLE PAIN 11/28/20 16:45 Al Hydroxide/Mg Hydroxide (Mylanta Plus Xs) 15 ml PRN AFTMEALHC PRN PO DYSPEPSIA 11/28/20 16:45 Magnesium Hydroxide (Milk Of Magnesia) 2,400 mg PRN QHS PRN PO 1ST CHOICE CONSTIPATION 11/28/20 16:45 Acetaminophen (Tylenol) 500 mg Q4HRS PRN PO PAIN/FEVER 11/28/20 18:00 12/01/20 09:05 Baclofen (Lioresal) 10 mg QID PO 11/28/20 21:00 12/03/20 20:19 Bisacodyl (Dulcolax Supp) 10 mg PRN DAILY PRN RC 2ND CHOICE CONSTIPATION 11/28/20 18:00 Carbidopa/Levodopa (Sinemet 25/100) 1 tab BID PO 11/28/20 21:00 12/01/20 18:16 DC 12/01/20 09:06 Vitamin D (Vitamin D3) 1,000 unit DAILY PO 11/29/20 09:00 12/03/20 08:39 Clopidogrel Bisulfate (Plavix) 75 mg DAILY PO 11/29/20 09:00 12/03/20 08:40 Donepezil HCl (Aricept) 10 mg QHS PO 11/28/20 21:00 12/03/20 20:17 Fenofibrate (Tricor) 145 mg DAILY PO 11/29/20 09:00 12/03/20 08:40 Furosemide (Lasix) 20 mg DAILY PO 11/29/20 09:00 12/03/20 08:41 Lorazepam (Ativan) 1 mg BID PO 11/28/20 21:00 11/30/20 18:02 DC 11/30/20 08:25 Al Hydroxide/Mg Hydroxide (Mylanta Plus Xs) 30 ml PRN Q2HRS PRN PO UPSET STOMACH 11/28/20 18:00 Metoprolol Succinate (Toprol Xl) 25 mg DAILY PO 11/29/20 09:00 12/03/20 08:40 Nitroglycerin (Nitrostat) 0.4 mg PRN Q5MIN PRN SL CHEST PAIN 11/28/20 18:00 Quetiapine Fumarate (SEROquel) 50 mg DAILY PO 11/29/20 09:00 12/03/20 08:40 Ropinirole HCl (Requip) 0.5 mg HS PO 11/28/20 21:00 12/03/20 20:17 Senna/Docusate Sodium (Senna Plus) 1 tab BID PO 11/28/20 21:00 12/03/20 20:19 Temazepam (Restoril) 7.5 mg QHS PO 11/28/20 21:00 11/28/20 20:32 DC Triamcinolone Acetonide (Kenalog) 1 esther PRN BID PRN TP BILAT ANKLE RASH 11/28/20 18:00 Cyanocobalamin (Vitamin B-12) 1,000 mcg DAILY PO 11/29/20 09:00 12/03/20 08:40 Zinc Acetate/ Diphenhydramine (Benadryl Topical) 1 esther PRN TID PRN TP BILAT ANKLE RASH ITCHING 11/28/20 18:45 Citalopram Hydrobromide (CeleXA) 10 mg DAILY PO 11/29/20 09:00 12/02/20 17:44 DC 12/02/20 08:23 Famotidine (Pepcid) 40 mg HS PO 11/28/20 21:00 12/03/20 20:18 Lactobacillus Rhamnosus (Culturelle) 2 cap BID PO 11/28/20 21:00 12/03/20 20:16 Levetiracetam (Keppra) 1,000 mg BID PO 11/28/20 21:00 12/03/20 20:16 Melatonin (Melatonin) 6 mg QHS PO 11/28/20 21:00 12/03/20 20:17 Niacin (Slo-Niacin) 250 mg QHS PO 11/28/20 21:00 12/03/20 20:19 Ondansetron HCl (Zofran Odt) 4 mg PRN Q4HRS PRN PO NAUSEA/VOMITING 11/28/20 18:45 Polyethylene Glycol (miraLAX) 17 gm DAILY PO 11/29/20 09:00 12/03/20 08:41 Non-Formulary Medication (Rosuvastatin Calcium (Crestor)) 40 mg HS PO 11/28/20 21:00 UNV Temazepam (Restoril) 7.5 mg QHS PO 11/28/20 21:00 11/30/20 18:01 DC 11/29/20 21:13 Lorazepam (Ativan) 1 mg QHS PO 11/30/20 21:00 12/03/20 20:18 Lorazepam (Ativan) 0.5 mg DAILY PO 12/01/20 09:00 12/03/20 08:39 Mirtazapine (Remeron) 7.5 mg QHS PO 11/30/20 21:00 12/03/20 20:19 Divalproex Sodium (Depakote Sprinkles) 500 mg HS PO 12/01/20 21:00 12/03/20 20:20 Carbidopa/Levodopa (Sinemet 25/100) 1 tab TID PO 12/01/20 21:00 12/03/20 20:18 Bupropion HCl (Wellbutrin Xl) 150 mg DAILY PO 12/03/20 09:00 12/03/20 08:40 Olanzapine (ZyPREXA ZYDIS) 2.5 mg PRN Q2HRS PRN PO ANXIETY / AGITATION 12/03/20 19:45 Current Medications Medications (Trade) Dose Ordered Sig/Vincenzo Route PRN Reason Start Time Stop Time Status Last Admin Dose Admin Bupropion HCl (Wellbutrin Xl) 150 mg DAILY PO 12/03/20 09:00 12/03/20 08:40 I have reviewed the current psychotropics carefully including drug interactions. Risk benefit ratio favors no change other than as noted in my dictated progress note. 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
[2020-12-04 06:12] VITALS: BP 110/67
[2020-12-04 08:35] LABS: BASO % 1 % (0-3); EOS # 0.2 x10^3/uL (0.0-0.7); EOS % 3 % (0-3); HEMATOCRIT 40.4 % (39.0-53.0); HEMOGLOBIN 13.3 g/dL (13.0-17.5); LYMPH % 37 % (24-48); MEAN CORPUSCULAR HEMOGLOBIN 30 pg (25-35); MEAN CORPUSCULAR HGB CONC 33 g/dL (31-37); MEAN CORPUSCULAR VOLUME 91 fL (79-100); MONO # 0.5 x10^3/uL (0.0-1.1); MONO % 10 % (0-9); NEUT # 2.7 x10^3uL (1.8-7.7); NEUT % 50 % (31-73); PLATELET COUNT 281 x10^3/uL (140-400); RED BLOOD COUNT 4.46 x10^6/uL (4.30-5.70); RED CELL DISTRIBUTION WIDTH 14.5 % (11.5-14.5); WHITE BLOOD COUNT 5.4 x10^3/uL (4.0-11.0)
[2020-12-04] MEDS: SENNOSIDES/DOCUSATE 8.6/50MG TABLET. PO SCH ×2 (08:38→20:37)
[2020-12-04] MEDS: QUEtiapine 50 MG TABLET. PO SCH (08:38)
[2020-12-04] MEDS: levETIRAcetam 500 MG TABLET PO SCH ×2 (08:38→20:37)
[2020-12-04] MEDS: METOPROLOL SUCC 24HR ER 25 MG TAB.ER.24H. PO SCH (08:38)
[2020-12-04] MEDS: LACTOBACILLUS RHAMNOSUS GG 1 CAPSULE. PO SCH ×2 (08:38→20:37)
[2020-12-04] MEDS: FENOFIBRATE NANOCRYSTALLIZED 145 MG TABLET PO SCH (08:39)
[2020-12-04] MEDS: CYANOCOBALAMIN (VITAMIN B-12) 1,000 MCG TABLET. PO SCH (08:39)
[2020-12-04] MEDS: BACLOFEN 10 MG TABLET PO SCH ×4 (08:39→20:37)
[2020-12-04] MEDS: CARBIDOPA/LEVODOPA 25/100MG TABLET PO SCH ×3 (08:39→20:37)
[2020-12-04] MEDS: buPROPion XL 150 MG TAB.ER.24H PO SCH (08:39)
[2020-12-04] MEDS: CHOLECALCIFEROL (VITAMIN D3) 1,000 UNIT TABLET PO SCH (08:39)
[2020-12-04] MEDS: LORazepam 0.5 MG TABLET PO SCH (08:39)
[2020-12-04] MEDS: CLOPIDOGREL BISULFATE 75 MG TABLET PO SCH (08:39)
[2020-12-04] MEDS: FUROSEMIDE 20 MG TABLET PO SCH (08:39)
[2020-12-04 08:48] LABS: ALBUMIN 3.4 g/dL (3.4-5.0); ALBUMIN/GLOBULIN RATIO 1.1 (1.0-1.7); GFR 73.5; POTASSIUM 4.1 mmol/L (3.5-5.1); TOTAL BILIRUBIN 0.3 mg/dL (0.2-1.0); TOTAL PROTEIN 6.5 g/dL (6.4-8.2)
[2020-12-04] MEDS: POLYETHYLENE GLYCOL 3350 17 GM PACKET. PO SCH (08:58)
[2020-12-04 09:21] LABS: VAL ACID 30 mcg/mL (50-100)
[2020-12-04 15:45] VITALS: BP 112/60
[2020-12-04] MEDS: MIRTAZAPINE 7.5 MG TABLET. PO SCH (20:36)
[2020-12-04] MEDS: FAMOTIDINE 20 MG TABLET PO SCH (20:36)
[2020-12-04] MEDS: NIACIN ER 500 MG TABLET.ER PO SCH (20:36)
[2020-12-04] MEDS: DONEPEZIL HCL 10 MG TABLET PO SCH (20:37)
[2020-12-04] MEDS: rOPINIRole 0.5 MG TABLET. PO SCH (20:37)
[2020-12-04] MEDS: NON FORMULARY ITEM (Rosuvastatin Calcium (Crestor) 40 MG) PO SCH (20:37)
[2020-12-04] MEDS: MELATONIN 3 MG TABLET PO SCH (20:37)
[2020-12-04] MEDS: LORazepam 1 MG TABLET PO SCH (20:37)
[2020-12-04] MEDS: DIVALPROEX 125 MG CAP.SPRINK PO SCH (20:37)
--- NOTE | 2020-12-04 22:07 | PDOC ---
Exam Note: Carl Note: Please also refer to the separate dictated note~for this date of service dictated separately.~Patient seen individually. Discussed the patient with Nursing staff reviewed the chart.~Reviewed interim history and current functioning. Reviewed vital signs,~Labs/ Radiology~and current medications noted below. Continue current treatment with the changes noted in the dictated addendum note Assessment: Vital Signs/I&O: Vital Signs Date Time Temp Pulse Resp B/P (MAP) Pulse Ox O2 Delivery O2 Flow Rate FiO2 12/04/20 15:45 98.0 60 18 112/60 (77) 100 12/04/20 06:12 Room Air I & O 12/03/20 12/03/20 12/04/20 15:00 23:00 07:00 Intake Total 480 ml 480 ml Balance 480 ml 480 ml Labs: Laboratory Tests Test 12/04/20 07:55 12/04/20 08:10 12/04/20 08:33 12/04/20 19:02 Glucose (Fingerstick) 54 mg/dL (70-99) L 120 mg/dL (70-99) H 105 mg/dL (70-99) H White Blood Count 5.4 x10^3/uL (4.0-11.0) Red Blood Count 4.46 x10^6/uL (4.30-5.70) Hemoglobin 13.3 g/dL (13.0-17.5) Hematocrit 40.4 % (39.0-53.0) Mean Corpuscular Volume 91 fL (79-100) Mean Corpuscular Hemoglobin 30 pg (25-35) Mean Corpuscular Hemoglobin Concent 33 g/dL (31-37) Red Cell Distribution Width 14.5 % (11.5-14.5) Platelet Count 281 x10^3/uL (140-400) Neutrophils (%) (Auto) 50 % (31-73) Lymphocytes (%) (Auto) 37 % (24-48) Monocytes (%) (Auto) 10 % (0-9) H Eosinophils (%) (Auto) 3 % (0-3) Basophils (%) (Auto) 1 % (0-3) Neutrophils # (Auto) 2.7 x10^3uL (1.8-7.7) Lymphocytes # (Auto) 2.0 x10^3/uL (1.0-4.8) Monocytes # (Auto) 0.5 x10^3/uL (0.0-1.1) Eosinophils # (Auto) 0.2 x10^3/uL (0.0-0.7) Basophils # (Auto) 0.0 x10^3/uL (0.0-0.2) Sodium Level 145 mmol/L (136-145) Potassium Level 4.1 mmol/L (3.5-5.1) Chloride Level 109 mmol/L (98-107) H Carbon Dioxide Level 27 mmol/L (21-32) Anion Gap 9 (6-14) Blood Urea Nitrogen 15 mg/dL (8-26) Creatinine 1.0 mg/dL (0.7-1.3) Estimated GFR (Cockcroft-Gault) 73.5 BUN/Creatinine Ratio 15 (6-20) Glucose Level 85 mg/dL (70-99) Calcium Level 9.0 mg/dL (8.5-10.1) Total Bilirubin 0.3 mg/dL (0.2-1.0) Aspartate Amino Transferase (AST) 17 U/L (15-37) Alanine Aminotransferase (ALT) 11 U/L (16-63) L Alkaline Phosphatase 66 U/L (46-116) Total Protein 6.5 g/dL (6.4-8.2) Albumin 3.4 g/dL (3.4-5.0) Albumin/Globulin Ratio 1.1 (1.0-1.7) Valproic Acid Level 30 mcg/mL (50-100) L Valproic Acid Last Dose Date 12/01/20 Valproic Acid Last Dose Time 2100 Current Medications: Meds: Laboratory Tests Test 12/04/20 07:55 12/04/20 08:10 12/04/20 08:33 12/04/20 19:02 Glucose (Fingerstick) 54 mg/dL 120 mg/dL 105 mg/dL White Blood Count 5.4 x10^3/uL Red Blood Count 4.46 x10^6/uL Hemoglobin 13.3 g/dL Hematocrit 40.4 % Mean Corpuscular Volume 91 fL Mean Corpuscular Hemoglobin 30 pg Mean Corpuscular Hemoglobin Concent 33 g/dL Red Cell Distribution Width 14.5 % Platelet Count 281 x10^3/uL Neutrophils (%) (Auto) 50 % Lymphocytes (%) (Auto) 37 % Monocytes (%) (Auto) 10 % Eosinophils (%) (Auto) 3 % Basophils (%) (Auto) 1 % Neutrophils # (Auto) 2.7 x10^3uL Lymphocytes # (Auto) 2.0 x10^3/uL Monocytes # (Auto) 0.5 x10^3/uL Eosinophils # (Auto) 0.2 x10^3/uL Basophils # (Auto) 0.0 x10^3/uL Sodium Level 145 mmol/L Potassium Level 4.1 mmol/L Chloride Level 109 mmol/L Carbon Dioxide Level 27 mmol/L Anion Gap 9 Blood Urea Nitrogen 15 mg/dL Creatinine 1.0 mg/dL Estimated GFR (Cockcroft-Gault) 73.5 BUN/Creatinine Ratio 15 Glucose Level 85 mg/dL Calcium Level 9.0 mg/dL Total Bilirubin 0.3 mg/dL Aspartate Amino Transf (AST/SGOT) 17 U/L Alanine Aminotransferase (ALT/SGPT) 11 U/L Alkaline Phosphatase 66 U/L Total Protein 6.5 g/dL Albumin 3.4 g/dL Albumin/Globulin Ratio 1.1 Valproic Acid (Depakene) Level 30 mcg/mL Valproic Acid Last Dose Date 12/01/20 Valproic Acid Last Dose Time 2100 Current Medications Medications (Trade) Dose Ordered Sig/Vincenzo Route PRN Reason Start Time Stop Time Status Last Admin Dose Admin Acetaminophen (Tylenol) 650 mg PRN Q6HRS PRN PO MILD PAIN / TEMP > 100.3'F 11/28/20 16:45 Multi-Ingredient Ointment (Analgesic [place]) 1 esther PRN QID PRN TP MUSCLE PAIN 11/28/20 16:45 Al Hydroxide/Mg Hydroxide (Mylanta Plus Xs) 15 ml PRN AFTMEALHC PRN PO DYSPEPSIA 11/28/20 16:45 Magnesium Hydroxide (Milk Of Magnesia) 2,400 mg PRN QHS PRN PO 1ST CHOICE CONSTIPATION 11/28/20 16:45 Acetaminophen (Tylenol) 500 mg Q4HRS PRN PO PAIN/FEVER 11/28/20 18:00 12/01/20 09:05 Baclofen (Lioresal) 10 mg QID PO 11/28/20 21:00 12/04/20 20:37 Bisacodyl (Dulcolax Supp) 10 mg PRN DAILY PRN RC 2ND CHOICE CONSTIPATION 11/28/20 18:00 Carbidopa/Levodopa (Sinemet 25/100) 1 tab BID PO 11/28/20 21:00 12/01/20 18:16 DC 12/01/20 09:06 Vitamin D (Vitamin D3) 1,000 unit DAILY PO 11/29/20 09:00 12/04/20 08:39 Clopidogrel Bisulfate (Plavix) 75 mg DAILY PO 11/29/20 09:00 12/04/20 08:39 Donepezil HCl (Aricept) 10 mg QHS PO 11/28/20 21:00 12/04/20 20:37 Fenofibrate (Tricor) 145 mg DAILY PO 11/29/20 09:00 12/04/20 08:39 Furosemide (Lasix) 20 mg DAILY PO 11/29/20 09:00 12/04/20 08:39 Lorazepam (Ativan) 1 mg BID PO 11/28/20 21:00 11/30/20 18:02 DC 11/30/20 08:25 Al Hydroxide/Mg Hydroxide (Mylanta Plus Xs) 30 ml PRN Q2HRS PRN PO UPSET STOMACH 11/28/20 18:00 Metoprolol Succinate (Toprol Xl) 25 mg DAILY PO 11/29/20 09:00 12/04/20 08:38 Nitroglycerin (Nitrostat) 0.4 mg PRN Q5MIN PRN SL CHEST PAIN 11/28/20 18:00 Quetiapine Fumarate (SEROquel) 50 mg DAILY PO 11/29/20 09:00 12/04/20 08:38 Ropinirole HCl (Requip) 0.5 mg HS PO 11/28/20 21:00 12/04/20 20:37 Senna/Docusate Sodium (Senna Plus) 1 tab BID PO 11/28/20 21:00 12/04/20 20:37 Temazepam (Restoril) 7.5 mg QHS PO 11/28/20 21:00 11/28/20 20:32 DC Triamcinolone Acetonide (Kenalog) 1 esther PRN BID PRN TP BILAT ANKLE RASH 11/28/20 18:00 Cyanocobalamin (Vitamin B-12) 1,000 mcg DAILY PO 11/29/20 09:00 12/04/20 08:39 Zinc Acetate/ Diphenhydramine (Benadryl Topical) 1 esther PRN TID PRN TP BILAT ANKLE RASH ITCHING 11/28/20 18:45 Citalopram Hydrobromide (CeleXA) 10 mg DAILY PO 11/29/20 09:00 12/02/20 17:44 DC 12/02/20 08:23 Famotidine (Pepcid) 40 mg HS PO 11/28/20 21:00 12/04/20 20:36 Lactobacillus Rhamnosus (Culturelle) 2 cap BID PO 11/28/20 21:00 12/04/20 20:37 Levetiracetam (Keppra) 1,000 mg BID PO 11/28/20 21:00 12/04/20 20:37 Melatonin (Melatonin) 6 mg QHS PO 11/28/20 21:00 12/04/20 20:37 Niacin (Slo-Niacin) 250 mg QHS PO 11/28/20 21:00 12/04/20 20:36 Ondansetron HCl (Zofran Odt) 4 mg PRN Q4HRS PRN PO NAUSEA/VOMITING 11/28/20 18:45 Polyethylene Glycol (miraLAX) 17 gm DAILY PO 11/29/20 09:00 12/04/20 08:58 Non-Formulary Medication (Rosuvastatin Calcium (Crestor)) 40 mg HS PO 11/28/20 21:00 UNV Temazepam (Restoril) 7.5 mg QHS PO 11/28/20 21:00 11/30/20 18:01 DC 11/29/20 21:13 Lorazepam (Ativan) 1 mg QHS PO 11/30/20 21:00 12/04/20 20:37 Lorazepam (Ativan) 0.5 mg DAILY PO 12/01/20 09:00 12/04/20 08:39 Mirtazapine (Remeron) 7.5 mg QHS PO 11/30/20 21:00 12/04/20 20:36 Divalproex Sodium (Depakote Sprinkles) 500 mg HS PO 12/01/20 21:00 12/04/20 20:37 Carbidopa/Levodopa (Sinemet 25/100) 1 tab TID PO 12/01/20 21:00 12/04/20 20:37 Bupropion HCl (Wellbutrin Xl) 150 mg DAILY PO 12/03/20 09:00 12/04/20 08:39 Olanzapine (ZyPREXA ZYDIS) 2.5 mg PRN Q2HRS PRN PO ANXIETY / AGITATION 12/03/20 19:45 12/04/20 18:38 I have reviewed the current psychotropics carefully including drug interactions. Risk benefit ratio favors no change other than as noted in my dictated progress note. Diagnosis: Problems: (1) Impulse control disorder, unspecified (2) Anxiety disorder, unspecified (3) Major neurocognitive disorder (4) Lewy body dementia with behavioral disturbance (5) Dementia, vascular, with delusions (6) Dementia, vascular, with delirium (7) Dementia in Alzheimer's disease with depression (8) Dementia in Alzheimer's disease with delusions (9) Parkinson's disease GIGI MCCOY MD Dec 04, 2020 22:07
[2020-12-05 06:01] VITALS: BP 109/71
[2020-12-05] MEDS: POLYETHYLENE GLYCOL 3350 17 GM PACKET. PO SCH (08:37)
[2020-12-05] MEDS: LORazepam 0.5 MG TABLET PO SCH (08:37)
[2020-12-05] MEDS: levETIRAcetam 500 MG TABLET PO SCH ×2 (08:38→20:02)
[2020-12-05] MEDS: CHOLECALCIFEROL (VITAMIN D3) 1,000 UNIT TABLET PO SCH (08:38)
[2020-12-05] MEDS: METOPROLOL SUCC 24HR ER 25 MG TAB.ER.24H. PO SCH (08:38)
[2020-12-05] MEDS: buPROPion XL 150 MG TAB.ER.24H PO SCH (08:38)
[2020-12-05] MEDS: FENOFIBRATE NANOCRYSTALLIZED 145 MG TABLET PO SCH (08:38)
[2020-12-05] MEDS: BACLOFEN 10 MG TABLET PO SCH ×4 (08:38→20:02)
[2020-12-05] MEDS: LACTOBACILLUS RHAMNOSUS GG 1 CAPSULE. PO SCH ×2 (08:38→20:01)
[2020-12-05] MEDS: FUROSEMIDE 20 MG TABLET PO SCH (08:38)
[2020-12-05] MEDS: CLOPIDOGREL BISULFATE 75 MG TABLET PO SCH (08:38)
[2020-12-05] MEDS: QUEtiapine 50 MG TABLET. PO SCH (08:38)
[2020-12-05] MEDS: CYANOCOBALAMIN (VITAMIN B-12) 1,000 MCG TABLET. PO SCH (08:38)
[2020-12-05] MEDS: SENNOSIDES/DOCUSATE 8.6/50MG TABLET. PO SCH ×2 (08:38→20:01)
[2020-12-05] MEDS: CARBIDOPA/LEVODOPA 25/100MG TABLET PO SCH ×3 (08:39→20:01)
--- NOTE | 2020-12-05 08:56 | PDOC ---
Exam Note: Carl Note: This note is a late entry for 12/03/2020 covers elements not covered in my initial note. Subjective: The patient was seen individually in the evening of 12/03/2020 with Chyna WISDOM, discussed and reviewed the chart. He slept 8 hours previous night. The patient remains confused, not very verbal. Review of Systems: Ambulation impaired in wheelchair with parkinsonian tremors. No CV, , pulmonary, eye system symptoms on review. Mental Status Exam: The patient is oriented to himself. Insight and judgment, recent and remote memory, attention and concentration, fund of knowledge is poor consistent with his diagnoses. Laboratory Data: Reviewed. 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 Anxiety disorder unspecified. Impulse control disorder unspecified. Plan: No change from initial note. Assessment: Vital Signs/I&O: Vital Signs Date Time Temp Pulse Resp B/P (MAP) Pulse Ox O2 Delivery O2 Flow Rate FiO2 12/05/20 08:38 66 109/71 12/05/20 06:01 96.9 16 99 Room Air I & O 12/04/20 12/04/20 12/05/20 15:00 23:00 07:00 Intake Total 840 ml 600 ml Balance 840 ml 600 ml Labs: Laboratory Tests Test 12/04/20 19:02 12/05/20 07:33 Glucose (Fingerstick) 105 mg/dL (70-99) H 91 mg/dL (70-99) Current Medications: Meds: Laboratory Tests Test 12/04/20 19:02 12/05/20 07:33 Glucose (Fingerstick) 105 mg/dL 91 mg/dL Current Medications Medications (Trade) Dose Ordered Sig/Vincenzo Route PRN Reason Start Time Stop Time Status Last Admin Dose Admin Acetaminophen (Tylenol) 650 mg PRN Q6HRS PRN PO MILD PAIN / TEMP > 100.3'F 11/28/20 16:45 Multi-Ingredient Ointment (Analgesic [place]) 1 esther PRN QID PRN TP MUSCLE PAIN 11/28/20 16:45 Al Hydroxide/Mg Hydroxide (Mylanta Plus Xs) 15 ml PRN AFTMEALHC PRN PO DYSPEPSIA 11/28/20 16:45 Magnesium Hydroxide (Milk Of Magnesia) 2,400 mg PRN QHS PRN PO 1ST CHOICE CONSTIPATION 11/28/20 16:45 Acetaminophen (Tylenol) 500 mg Q4HRS PRN PO PAIN/FEVER 11/28/20 18:00 12/01/20 09:05 Baclofen (Lioresal) 10 mg QID PO 11/28/20 21:00 12/05/20 08:38 Bisacodyl (Dulcolax Supp) 10 mg PRN DAILY PRN RC 2ND CHOICE CONSTIPATION 11/28/20 18:00 Carbidopa/Levodopa (Sinemet 25/100) 1 tab BID PO 11/28/20 21:00 12/01/20 18:16 DC 12/01/20 09:06 Vitamin D (Vitamin D3) 1,000 unit DAILY PO 11/29/20 09:00 12/05/20 08:38 Clopidogrel Bisulfate (Plavix) 75 mg DAILY PO 11/29/20 09:00 12/05/20 08:38 Donepezil HCl (Aricept) 10 mg QHS PO 11/28/20 21:00 12/04/20 20:37 Fenofibrate (Tricor) 145 mg DAILY PO 11/29/20 09:00 12/05/20 08:38 Furosemide (Lasix) 20 mg DAILY PO 11/29/20 09:00 12/05/20 08:38 Lorazepam (Ativan) 1 mg BID PO 11/28/20 21:00 11/30/20 18:02 DC 11/30/20 08:25 Al Hydroxide/Mg Hydroxide (Mylanta Plus Xs) 30 ml PRN Q2HRS PRN PO UPSET STOMACH 11/28/20 18:00 Metoprolol Succinate (Toprol Xl) 25 mg DAILY PO 11/29/20 09:00 12/05/20 08:38 Nitroglycerin (Nitrostat) 0.4 mg PRN Q5MIN PRN SL CHEST PAIN 11/28/20 18:00 Quetiapine Fumarate (SEROquel) 50 mg DAILY PO 11/29/20 09:00 12/05/20 08:38 Ropinirole HCl (Requip) 0.5 mg HS PO 11/28/20 21:00 12/04/20 20:37 Senna/Docusate Sodium (Senna Plus) 1 tab BID PO 11/28/20 21:00 12/05/20 08:38 Temazepam (Restoril) 7.5 mg QHS PO 11/28/20 21:00 11/28/20 20:32 DC Triamcinolone Acetonide (Kenalog) 1 esther PRN BID PRN TP BILAT ANKLE RASH 11/28/20 18:00 Cyanocobalamin (Vitamin B-12) 1,000 mcg DAILY PO 11/29/20 09:00 12/05/20 08:38 Zinc Acetate/ Diphenhydramine (Benadryl Topical) 1 esther PRN TID PRN TP BILAT ANKLE RASH ITCHING 11/28/20 18:45 Citalopram Hydrobromide (CeleXA) 10 mg DAILY PO 11/29/20 09:00 12/02/20 17:44 DC 12/02/20 08:23 Famotidine (Pepcid) 40 mg HS PO 11/28/20 21:00 12/04/20 20:36 Lactobacillus Rhamnosus (Culturelle) 2 cap BID PO 11/28/20 21:00 12/05/20 08:38 Levetiracetam (Keppra) 1,000 mg BID PO 11/28/20 21:00 12/05/20 08:38 Melatonin (Melatonin) 6 mg QHS PO 11/28/20 21:00 12/04/20 20:37 Niacin (Slo-Niacin) 250 mg QHS PO 11/28/20 21:00 12/04/20 20:36 Ondansetron HCl (Zofran Odt) 4 mg PRN Q4HRS PRN PO NAUSEA/VOMITING 11/28/20 18:45 Polyethylene Glycol (miraLAX) 17 gm DAILY PO 11/29/20 09:00 12/05/20 08:37 Non-Formulary Medication (Rosuvastatin Calcium (Crestor)) 40 mg HS PO 11/28/20 21:00 UNV Temazepam (Restoril) 7.5 mg QHS PO 11/28/20 21:00 11/30/20 18:01 DC 11/29/20 21:13 Lorazepam (Ativan) 1 mg QHS PO 11/30/20 21:00 12/04/20 20:37 Lorazepam (Ativan) 0.5 mg DAILY PO 12/01/20 09:00 12/05/20 08:37 Mirtazapine (Remeron) 7.5 mg QHS PO 11/30/20 21:00 12/04/20 20:36 Divalproex Sodium (Depakote Sprinkles) 500 mg HS PO 12/01/20 21:00 12/04/20 20:37 Carbidopa/Levodopa (Sinemet 25/100) 1 tab TID PO 12/01/20 21:00 12/05/20 08:39 Bupropion HCl (Wellbutrin Xl) 150 mg DAILY PO 12/03/20 09:00 12/05/20 08:38 Olanzapine (ZyPREXA ZYDIS) 2.5 mg PRN Q2HRS PRN PO ANXIETY / AGITATION 12/03/20 19:45 12/04/20 18:38 I have reviewed the current psychotropics carefully including drug interactions. Risk benefit ratio favors no change other than as noted in my dictated progress note. 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
--- NOTE | 2020-12-05 09:21 | PDOC ---
Exam Note: Carl Note: This note is a late entry for 12/04/2020 covers elements not covered in my initial note. Subjective: The patient was seen individually in the evening of 12/04/2020 with Peace WISDOM, discussed and reviewed the chart. He slept 7 hours previous night. He continues to have difficulty with his activities of daily living and has had hand tremors and body movements consistent with his Parkinsons. He was a little more interactive with staff and greeted them by saying hello. Review of Systems: Ambulation impaired in wheelchair consequent with parkinsonian tremors. No CV, , pulmonary, eye system symptoms on review. Mental Status Exam: The patient is oriented to himself. Insight and judgment, recent and remote memory, attention and concentration, fund of knowledge is poor consistent with his diagnoses. Laboratory Data: Reviewed. 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 Anxiety disorder unspecified. Impulse control disorder unspecified. Plan: No change from initial note. Assessment: Vital Signs/I&O: Vital Signs Date Time Temp Pulse Resp B/P (MAP) Pulse Ox O2 Delivery O2 Flow Rate FiO2 12/05/20 08:38 66 109/71 12/05/20 06:01 96.9 16 99 Room Air I & O 12/04/20 12/04/20 12/05/20 15:00 23:00 07:00 Intake Total 840 ml 600 ml Balance 840 ml 600 ml Labs: Laboratory Tests Test 12/04/20 19:02 12/05/20 07:33 Glucose (Fingerstick) 105 mg/dL (70-99) H 91 mg/dL (70-99) Current Medications: Meds: Laboratory Tests Test 12/04/20 19:02 12/05/20 07:33 Glucose (Fingerstick) 105 mg/dL 91 mg/dL Current Medications Medications (Trade) Dose Ordered Sig/Vincenzo Route PRN Reason Start Time Stop Time Status Last Admin Dose Admin Acetaminophen (Tylenol) 650 mg PRN Q6HRS PRN PO MILD PAIN / TEMP > 100.3'F 11/28/20 16:45 Multi-Ingredient Ointment (Analgesic [place]) 1 esther PRN QID PRN TP MUSCLE PAIN 11/28/20 16:45 Al Hydroxide/Mg Hydroxide (Mylanta Plus Xs) 15 ml PRN AFTMEALHC PRN PO DYSPEPSIA 11/28/20 16:45 Magnesium Hydroxide (Milk Of Magnesia) 2,400 mg PRN QHS PRN PO 1ST CHOICE CONSTIPATION 11/28/20 16:45 Acetaminophen (Tylenol) 500 mg Q4HRS PRN PO PAIN/FEVER 11/28/20 18:00 12/01/20 09:05 Baclofen (Lioresal) 10 mg QID PO 11/28/20 21:00 12/05/20 08:38 Bisacodyl (Dulcolax Supp) 10 mg PRN DAILY PRN RC 2ND CHOICE CONSTIPATION 11/28/20 18:00 Carbidopa/Levodopa (Sinemet 25/100) 1 tab BID PO 11/28/20 21:00 12/01/20 18:16 DC 12/01/20 09:06 Vitamin D (Vitamin D3) 1,000 unit DAILY PO 11/29/20 09:00 12/05/20 08:38 Clopidogrel Bisulfate (Plavix) 75 mg DAILY PO 11/29/20 09:00 12/05/20 08:38 Donepezil HCl (Aricept) 10 mg QHS PO 11/28/20 21:00 12/04/20 20:37 Fenofibrate (Tricor) 145 mg DAILY PO 11/29/20 09:00 12/05/20 08:38 Furosemide (Lasix) 20 mg DAILY PO 11/29/20 09:00 12/05/20 08:38 Lorazepam (Ativan) 1 mg BID PO 11/28/20 21:00 11/30/20 18:02 DC 11/30/20 08:25 Al Hydroxide/Mg Hydroxide (Mylanta Plus Xs) 30 ml PRN Q2HRS PRN PO UPSET STOMACH 11/28/20 18:00 Metoprolol Succinate (Toprol Xl) 25 mg DAILY PO 11/29/20 09:00 12/05/20 08:38 Nitroglycerin (Nitrostat) 0.4 mg PRN Q5MIN PRN SL CHEST PAIN 11/28/20 18:00 Quetiapine Fumarate (SEROquel) 50 mg DAILY PO 11/29/20 09:00 12/05/20 08:38 Ropinirole HCl (Requip) 0.5 mg HS PO 11/28/20 21:00 12/04/20 20:37 Senna/Docusate Sodium (Senna Plus) 1 tab BID PO 11/28/20 21:00 12/05/20 08:38 Temazepam (Restoril) 7.5 mg QHS PO 11/28/20 21:00 11/28/20 20:32 DC Triamcinolone Acetonide (Kenalog) 1 esther PRN BID PRN TP BILAT ANKLE RASH 11/28/20 18:00 Cyanocobalamin (Vitamin B-12) 1,000 mcg DAILY PO 11/29/20 09:00 12/05/20 08:38 Zinc Acetate/ Diphenhydramine (Benadryl Topical) 1 esther PRN TID PRN TP BILAT ANKLE RASH ITCHING 11/28/20 18:45 Citalopram Hydrobromide (CeleXA) 10 mg DAILY PO 11/29/20 09:00 12/02/20 17:44 DC 12/02/20 08:23 Famotidine (Pepcid) 40 mg HS PO 11/28/20 21:00 12/04/20 20:36 Lactobacillus Rhamnosus (Culturelle) 2 cap BID PO 11/28/20 21:00 12/05/20 08:38 Levetiracetam (Keppra) 1,000 mg BID PO 11/28/20 21:00 12/05/20 08:38 Melatonin (Melatonin) 6 mg QHS PO 11/28/20 21:00 12/04/20 20:37 Niacin (Slo-Niacin) 250 mg QHS PO 11/28/20 21:00 12/04/20 20:36 Ondansetron HCl (Zofran Odt) 4 mg PRN Q4HRS PRN PO NAUSEA/VOMITING 11/28/20 18:45 Polyethylene Glycol (miraLAX) 17 gm DAILY PO 11/29/20 09:00 12/05/20 08:37 Non-Formulary Medication (Rosuvastatin Calcium (Crestor)) 40 mg HS PO 11/28/20 21:00 UNV Temazepam (Restoril) 7.5 mg QHS PO 11/28/20 21:00 11/30/20 18:01 DC 11/29/20 21:13 Lorazepam (Ativan) 1 mg QHS PO 11/30/20 21:00 12/04/20 20:37 Lorazepam (Ativan) 0.5 mg DAILY PO 12/01/20 09:00 12/05/20 08:37 Mirtazapine (Remeron) 7.5 mg QHS PO 11/30/20 21:00 12/04/20 20:36 Divalproex Sodium (Depakote Sprinkles) 500 mg HS PO 12/01/20 21:00 12/04/20 20:37 Carbidopa/Levodopa (Sinemet 25/100) 1 tab TID PO 12/01/20 21:00 12/05/20 08:39 Bupropion HCl (Wellbutrin Xl) 150 mg DAILY PO 12/03/20 09:00 12/05/20 08:38 Olanzapine (ZyPREXA ZYDIS) 2.5 mg PRN Q2HRS PRN PO ANXIETY / AGITATION 12/03/20 19:45 12/04/20 18:38 I have reviewed the current psychotropics carefully including drug interactions. Risk benefit ratio favors no change other than as noted in my dictated progress note. 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
[2020-12-05 16:02] VITALS: BP 108/64
[2020-12-05] MEDS: NON FORMULARY ITEM (Rosuvastatin Calcium (Crestor) 40 MG) PO SCH (19:40)
[2020-12-05] MEDS: DIVALPROEX 125 MG CAP.SPRINK PO SCH (20:00)
[2020-12-05] MEDS: FAMOTIDINE 20 MG TABLET PO SCH (20:01)
[2020-12-05] MEDS: DONEPEZIL HCL 10 MG TABLET PO SCH (20:01)
[2020-12-05] MEDS: NIACIN ER 500 MG TABLET.ER PO SCH (20:02)
[2020-12-05] MEDS: MELATONIN 3 MG TABLET PO SCH (20:02)
[2020-12-05] MEDS: rOPINIRole 0.5 MG TABLET. PO SCH (20:02)
[2020-12-05] MEDS: MIRTAZAPINE 7.5 MG TABLET. PO SCH (20:02)
[2020-12-05] MEDS: LORazepam 1 MG TABLET PO SCH (20:05)
--- NOTE | 2020-12-05 22:08 | PDOC ---
Exam Note: Carl Note: Please also refer to the separate dictated note~for this date of service dictated separately.~Patient seen individually. Discussed the patient with Nursing staff reviewed the chart.~Reviewed interim history and current functioning. Reviewed vital signs,~Labs/ Radiology~and current medications noted below. Continue current treatment with the changes noted in the dictated addendum note Assessment: Vital Signs/I&O: Vital Signs Date Time Temp Pulse Resp B/P (MAP) Pulse Ox O2 Delivery O2 Flow Rate FiO2 12/05/20 16:02 97.7 60 18 108/64 (79) 98 12/05/20 06:01 Room Air I & O 12/04/20 12/04/20 12/05/20 15:00 23:00 07:00 Intake Total 840 ml 600 ml Balance 840 ml 600 ml Labs: Laboratory Tests Test 12/05/20 07:33 12/05/20 19:21 Glucose (Fingerstick) 91 mg/dL (70-99) 98 mg/dL (70-99) Current Medications: Meds: Laboratory Tests Test 12/05/20 07:33 12/05/20 19:21 Glucose (Fingerstick) 91 mg/dL 98 mg/dL Current Medications Medications (Trade) Dose Ordered Sig/Vincenzo Route PRN Reason Start Time Stop Time Status Last Admin Dose Admin Acetaminophen (Tylenol) 650 mg PRN Q6HRS PRN PO MILD PAIN / TEMP > 100.3'F 11/28/20 16:45 Multi-Ingredient Ointment (Analgesic [place]) 1 esther PRN QID PRN TP MUSCLE PAIN 11/28/20 16:45 Al Hydroxide/Mg Hydroxide (Mylanta Plus Xs) 15 ml PRN AFTMEALHC PRN PO DYSPEPSIA 11/28/20 16:45 Magnesium Hydroxide (Milk Of Magnesia) 2,400 mg PRN QHS PRN PO 1ST CHOICE CONSTIPATION 11/28/20 16:45 Acetaminophen (Tylenol) 500 mg Q4HRS PRN PO PAIN/FEVER 11/28/20 18:00 12/01/20 09:05 Baclofen (Lioresal) 10 mg QID PO 11/28/20 21:00 12/05/20 20:02 Bisacodyl (Dulcolax Supp) 10 mg PRN DAILY PRN RC 2ND CHOICE CONSTIPATION 11/28/20 18:00 Carbidopa/Levodopa (Sinemet 25/100) 1 tab BID PO 11/28/20 21:00 12/01/20 18:16 DC 12/01/20 09:06 Vitamin D (Vitamin D3) 1,000 unit DAILY PO 11/29/20 09:00 12/05/20 08:38 Clopidogrel Bisulfate (Plavix) 75 mg DAILY PO 11/29/20 09:00 12/05/20 08:38 Donepezil HCl (Aricept) 10 mg QHS PO 11/28/20 21:00 12/05/20 20:01 Fenofibrate (Tricor) 145 mg DAILY PO 11/29/20 09:00 12/05/20 08:38 Furosemide (Lasix) 20 mg DAILY PO 11/29/20 09:00 12/05/20 08:38 Lorazepam (Ativan) 1 mg BID PO 11/28/20 21:00 11/30/20 18:02 DC 11/30/20 08:25 Al Hydroxide/Mg Hydroxide (Mylanta Plus Xs) 30 ml PRN Q2HRS PRN PO UPSET STOMACH 11/28/20 18:00 Metoprolol Succinate (Toprol Xl) 25 mg DAILY PO 11/29/20 09:00 12/05/20 08:38 Nitroglycerin (Nitrostat) 0.4 mg PRN Q5MIN PRN SL CHEST PAIN 11/28/20 18:00 Quetiapine Fumarate (SEROquel) 50 mg DAILY PO 11/29/20 09:00 12/05/20 08:38 Ropinirole HCl (Requip) 0.5 mg HS PO 11/28/20 21:00 12/05/20 20:02 Senna/Docusate Sodium (Senna Plus) 1 tab BID PO 11/28/20 21:00 12/05/20 20:01 Temazepam (Restoril) 7.5 mg QHS PO 11/28/20 21:00 11/28/20 20:32 DC Triamcinolone Acetonide (Kenalog) 1 esther PRN BID PRN TP BILAT ANKLE RASH 11/28/20 18:00 Cyanocobalamin (Vitamin B-12) 1,000 mcg DAILY PO 11/29/20 09:00 12/05/20 08:38 Zinc Acetate/ Diphenhydramine (Benadryl Topical) 1 esther PRN TID PRN TP BILAT ANKLE RASH ITCHING 11/28/20 18:45 Citalopram Hydrobromide (CeleXA) 10 mg DAILY PO 11/29/20 09:00 12/02/20 17:44 DC 12/02/20 08:23 Famotidine (Pepcid) 40 mg HS PO 11/28/20 21:00 12/05/20 20:01 Lactobacillus Rhamnosus (Culturelle) 2 cap BID PO 11/28/20 21:00 12/05/20 20:01 Levetiracetam (Keppra) 1,000 mg BID PO 11/28/20 21:00 12/05/20 20:02 Melatonin (Melatonin) 6 mg QHS PO 11/28/20 21:00 12/05/20 20:02 Niacin (Slo-Niacin) 250 mg QHS PO 11/28/20 21:00 12/05/20 20:02 Ondansetron HCl (Zofran Odt) 4 mg PRN Q4HRS PRN PO NAUSEA/VOMITING 11/28/20 18:45 Polyethylene Glycol (miraLAX) 17 gm DAILY PO 11/29/20 09:00 12/05/20 08:37 Non-Formulary Medication (Rosuvastatin Calcium (Crestor)) 40 mg HS PO 11/28/20 21:00 UNV Temazepam (Restoril) 7.5 mg QHS PO 11/28/20 21:00 11/30/20 18:01 DC 11/29/20 21:13 Lorazepam (Ativan) 1 mg QHS PO 11/30/20 21:00 12/05/20 20:05 Lorazepam (Ativan) 0.5 mg DAILY PO 12/01/20 09:00 12/05/20 08:37 Mirtazapine (Remeron) 7.5 mg QHS PO 11/30/20 21:00 12/05/20 20:02 Divalproex Sodium (Depakote Sprinkles) 500 mg HS PO 12/01/20 21:00 12/05/20 20:00 Carbidopa/Levodopa (Sinemet 25/100) 1 tab TID PO 12/01/20 21:00 12/05/20 20:01 Bupropion HCl (Wellbutrin Xl) 150 mg DAILY PO 12/03/20 09:00 12/05/20 08:38 Olanzapine (ZyPREXA ZYDIS) 2.5 mg PRN Q2HRS PRN PO ANXIETY / AGITATION 12/03/20 19:45 12/05/20 11:00 I have reviewed the current psychotropics carefully including drug interactions. Risk benefit ratio favors no change other than as noted in my dictated progress note. 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
[2020-12-06 05:55] VITALS: BP 135/95
--- NOTE | 2020-12-06 07:59 | PDOC ---
Exam Note: Carl Note: This note is a late entry for 12/05/2020 covers elements not covered in my initial note. Subjective: The patient was seen individually in the evening of 12/05/2020 with Peace WISDOM, discussed and reviewed the chart. He slept 6-3/4 hours previous night. He is compliant with medications, not very verbal. We will consult occupational therapy since he is having difficulty feeding himself consequent to Parkinsons disease. We will start him on Zyprexa p.r.n. At one time earlier in the day he was posturing at a female [employer], then pulling back his fist and making it to a ball ready to fight. He seemed paranoid and then seemed to settle down thereafter. Review of Systems: Ambulation impaired in wheelchair consequent with parkinsonian tremors. No CV, , pulmonary, eye system symptoms on review. Mental Status Exam: The patient is oriented to himself. Insight and judgment, recent and remote memory, attention and concentration, fund of knowledge is poor consistent with his diagnoses. Laboratory Data: Reviewed. 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 Anxiety disorder unspecified. Impulse control disorder unspecified. Plan: No change from initial note. Assessment: Vital Signs/I&O: Vital Signs Date Time Temp Pulse Resp B/P (MAP) Pulse Ox O2 Delivery O2 Flow Rate FiO2 12/06/20 05:55 97.4 81 16 135/95 (108) 99 Room Air I & O 12/05/20 12/05/20 12/06/20 15:00 23:00 07:00 Intake Total 600 ml 240 ml 120 ml Balance 600 ml 240 ml 120 ml Labs: Laboratory Tests Test 12/05/20:12/06/20 07:39 Glucose (Fingerstick) 98 mg/dL (70-99) 92 mg/dL (70-99) Current Medications: Meds: Laboratory Tests Test 12/05/20:12/06/20 07:39 Glucose (Fingerstick) 98 mg/dL 92 mg/dL Current Medications Medications (Trade) Dose Ordered Sig/Vincenzo Route PRN Reason Start Time Stop Time Status Last Admin Dose Admin Acetaminophen (Tylenol) 650 mg PRN Q6HRS PRN PO MILD PAIN / TEMP > 100.3'F 11/28/20 16:45 Multi-Ingredient Ointment (Analgesic [place]) 1 esther PRN QID PRN TP MUSCLE PAIN 11/28/20 16:45 Al Hydroxide/Mg Hydroxide (Mylanta Plus Xs) 15 ml PRN AFTMEALHC PRN PO DYSPEPSIA 11/28/20 16:45 Magnesium Hydroxide (Milk Of Magnesia) 2,400 mg PRN QHS PRN PO 1ST CHOICE CONSTIPATION 11/28/20 16:45 Acetaminophen (Tylenol) 500 mg Q4HRS PRN PO PAIN/FEVER 11/28/20 18:00 12/01/20 09:05 Baclofen (Lioresal) 10 mg QID PO 11/28/20 21:00 12/05/20 20:02 Bisacodyl (Dulcolax Supp) 10 mg PRN DAILY PRN RC 2ND CHOICE CONSTIPATION 11/28/20 18:00 Carbidopa/Levodopa (Sinemet 25/100) 1 tab BID PO 11/28/20 21:00 12/01/20 18:16 DC 12/01/20 09:06 Vitamin D (Vitamin D3) 1,000 unit DAILY PO 11/29/20 09:00 12/05/20 08:38 Clopidogrel Bisulfate (Plavix) 75 mg DAILY PO 11/29/20 09:00 12/05/20 08:38 Donepezil HCl (Aricept) 10 mg QHS PO 11/28/20 21:00 12/05/20 20:01 Fenofibrate (Tricor) 145 mg DAILY PO 11/29/20 09:00 12/05/20 08:38 Furosemide (Lasix) 20 mg DAILY PO 11/29/20 09:00 12/05/20 08:38 Lorazepam (Ativan) 1 mg BID PO 11/28/20 21:00 11/30/20 18:02 DC 11/30/20 08:25 Al Hydroxide/Mg Hydroxide (Mylanta Plus Xs) 30 ml PRN Q2HRS PRN PO UPSET STOMACH 11/28/20 18:00 Metoprolol Succinate (Toprol Xl) 25 mg DAILY PO 11/29/20 09:00 12/05/20 08:38 Nitroglycerin (Nitrostat) 0.4 mg PRN Q5MIN PRN SL CHEST PAIN 11/28/20 18:00 Quetiapine Fumarate (SEROquel) 50 mg DAILY PO 11/29/20 09:00 12/05/20 08:38 Ropinirole HCl (Requip) 0.5 mg HS PO 11/28/20 21:00 12/05/20 20:02 Senna/Docusate Sodium (Senna Plus) 1 tab BID PO 11/28/20 21:00 12/05/20 20:01 Temazepam (Restoril) 7.5 mg QHS PO 11/28/20 21:00 11/28/20 20:32 DC Triamcinolone Acetonide (Kenalog) 1 esther PRN BID PRN TP BILAT ANKLE RASH 11/28/20 18:00 Cyanocobalamin (Vitamin B-12) 1,000 mcg DAILY PO 11/29/20 09:00 12/05/20 08:38 Zinc Acetate/ Diphenhydramine (Benadryl Topical) 1 esther PRN TID PRN TP BILAT ANKLE RASH ITCHING 11/28/20 18:45 Citalopram Hydrobromide (CeleXA) 10 mg DAILY PO 11/29/20 09:00 12/02/20 17:44 DC 12/02/20 08:23 Famotidine (Pepcid) 40 mg HS PO 11/28/20 21:00 12/05/20 20:01 Lactobacillus Rhamnosus (Culturelle) 2 cap BID PO 11/28/20 21:00 12/05/20 20:01 Levetiracetam (Keppra) 1,000 mg BID PO 11/28/20 21:00 12/05/20 20:02 Melatonin (Melatonin) 6 mg QHS PO 11/28/20 21:00 12/05/20 20:02 Niacin (Slo-Niacin) 250 mg QHS PO 11/28/20 21:00 12/05/20 20:02 Ondansetron HCl (Zofran Odt) 4 mg PRN Q4HRS PRN PO NAUSEA/VOMITING 11/28/20 18:45 Polyethylene Glycol (miraLAX) 17 gm DAILY PO 11/29/20 09:00 12/05/20 08:37 Non-Formulary Medication (Rosuvastatin Calcium (Crestor)) 40 mg HS PO 11/28/20 21:00 UNV Temazepam (Restoril) 7.5 mg QHS PO 11/28/20 21:00 11/30/20 18:01 DC 11/29/20 21:13 Lorazepam (Ativan) 1 mg QHS PO 11/30/20 21:00 12/05/20 20:05 Lorazepam (Ativan) 0.5 mg DAILY PO 12/01/20 09:00 12/05/20 08:37 Mirtazapine (Remeron) 7.5 mg QHS PO 11/30/20 21:00 12/05/20 20:02 Divalproex Sodium (Depakote Sprinkles) 500 mg HS PO 12/01/20 21:00 12/05/20 20:00 Carbidopa/Levodopa (Sinemet 25/100) 1 tab TID PO 12/01/20 21:00 12/05/20 20:01 Bupropion HCl (Wellbutrin Xl) 150 mg DAILY PO 12/03/20 09:00 12/05/20 08:38 Olanzapine (ZyPREXA ZYDIS) 2.5 mg PRN Q2HRS PRN PO ANXIETY / AGITATION 12/03/20 19:45 12/05/20 11:00 I have reviewed the current psychotropics carefully including drug interactions. Risk benefit ratio favors no change other than as noted in my dictated progress note. 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
[2020-12-06] MEDS: POLYETHYLENE GLYCOL 3350 17 GM PACKET. PO SCH (09:52)
[2020-12-06] MEDS: CHOLECALCIFEROL (VITAMIN D3) 1,000 UNIT TABLET PO SCH (09:52)
[2020-12-06] MEDS: LACTOBACILLUS RHAMNOSUS GG 1 CAPSULE. PO SCH ×2 (09:53→20:20)
[2020-12-06] MEDS: levETIRAcetam 500 MG TABLET PO SCH ×2 (09:53→20:21)
[2020-12-06] MEDS: SENNOSIDES/DOCUSATE 8.6/50MG TABLET. PO SCH ×2 (09:53→20:20)
[2020-12-06] MEDS: buPROPion XL 150 MG TAB.ER.24H PO SCH (09:53)
[2020-12-06] MEDS: BACLOFEN 10 MG TABLET PO SCH ×4 (09:53→20:20)
[2020-12-06] MEDS: CYANOCOBALAMIN (VITAMIN B-12) 1,000 MCG TABLET. PO SCH (09:53)
[2020-12-06] MEDS: FUROSEMIDE 20 MG TABLET PO SCH (09:54)
[2020-12-06] MEDS: CARBIDOPA/LEVODOPA 25/100MG TABLET PO SCH ×3 (09:54→20:22)
[2020-12-06] MEDS: METOPROLOL SUCC 24HR ER 25 MG TAB.ER.24H. PO SCH (09:54)
[2020-12-06] MEDS: QUEtiapine 50 MG TABLET. PO SCH (09:54)
[2020-12-06] MEDS: FENOFIBRATE NANOCRYSTALLIZED 145 MG TABLET PO SCH (09:54)
[2020-12-06] MEDS: CLOPIDOGREL BISULFATE 75 MG TABLET PO SCH (09:54)
[2020-12-06] MEDS: LORazepam 0.5 MG TABLET PO SCH (09:55)
[2020-12-06 15:45] VITALS: BP 104/59
[2020-12-06] MEDS: FAMOTIDINE 20 MG TABLET PO SCH (20:19)
[2020-12-06] MEDS: MIRTAZAPINE 7.5 MG TABLET. PO SCH (20:20)
[2020-12-06] MEDS: DIVALPROEX 125 MG CAP.SPRINK PO SCH (20:20)
[2020-12-06] MEDS: LORazepam 1 MG TABLET PO SCH (20:21)
[2020-12-06] MEDS: MELATONIN 3 MG TABLET PO SCH (20:21)
[2020-12-06] MEDS: rOPINIRole 0.5 MG TABLET. PO SCH (20:22)
[2020-12-06] MEDS: NIACIN ER 500 MG TABLET.ER PO SCH (20:22)
[2020-12-06] MEDS: DONEPEZIL HCL 10 MG TABLET PO SCH (20:23)
[2020-12-06] MEDS: NON FORMULARY ITEM (Rosuvastatin Calcium (Crestor) 40 MG) PO SCH (20:23)
--- NOTE | 2020-12-06 22:16 | PDOC ---
Exam Note: Carl Note: Please also refer to the separate dictated note~for this date of service dictated separately.~Patient seen individually. Discussed the patient with Nursing staff reviewed the chart.~Reviewed interim history and current functioning. Reviewed vital signs,~Labs/ Radiology~and current medications noted below. Continue current treatment with the changes noted in the dictated addendum note Assessment: Vital Signs/I&O: Vital Signs Date Time Temp Pulse Resp B/P (MAP) Pulse Ox O2 Delivery O2 Flow Rate FiO2 12/06/20 15:45 97.2 61 16 104/59 (74) 96 12/06/20 05:55 Room Air I & O 12/05/20 12/05/20 12/06/20 15:00 23:00 07:00 Intake Total 600 ml 240 ml 120 ml Balance 600 ml 240 ml 120 ml Labs: Laboratory Tests Test 12/06/20 07:39 12/06/20 19:29 Glucose (Fingerstick) 92 mg/dL (70-99) 124 mg/dL (70-99) H Current Medications: Meds: Laboratory Tests Test 12/06/20 07:39 12/06/20 19:29 Glucose (Fingerstick) 92 mg/dL 124 mg/dL Current Medications Medications (Trade) Dose Ordered Sig/Vincenzo Route PRN Reason Start Time Stop Time Status Last Admin Dose Admin Acetaminophen (Tylenol) 650 mg PRN Q6HRS PRN PO MILD PAIN / TEMP > 100.3'F 11/28/20 16:45 Multi-Ingredient Ointment (Analgesic [place]) 1 esther PRN QID PRN TP MUSCLE PAIN 11/28/20 16:45 Al Hydroxide/Mg Hydroxide (Mylanta Plus Xs) 15 ml PRN AFTMEALHC PRN PO DYSPEPSIA 11/28/20 16:45 Magnesium Hydroxide (Milk Of Magnesia) 2,400 mg PRN QHS PRN PO 1ST CHOICE CONSTIPATION 11/28/20 16:45 Acetaminophen (Tylenol) 500 mg Q4HRS PRN PO PAIN/FEVER 11/28/20 18:00 12/01/20 09:05 Baclofen (Lioresal) 10 mg QID PO 11/28/20 21:00 12/06/20 20:20 Bisacodyl (Dulcolax Supp) 10 mg PRN DAILY PRN RC 2ND CHOICE CONSTIPATION 11/28/20 18:00 Carbidopa/Levodopa (Sinemet 25/100) 1 tab BID PO 11/28/20 21:00 12/01/20 18:16 DC 12/01/20 09:06 Vitamin D (Vitamin D3) 1,000 unit DAILY PO 11/29/20 09:00 12/06/20 09:52 Clopidogrel Bisulfate (Plavix) 75 mg DAILY PO 11/29/20 09:00 12/06/20 09:54 Donepezil HCl (Aricept) 10 mg QHS PO 11/28/20 21:00 12/06/20 20:23 Fenofibrate (Tricor) 145 mg DAILY PO 11/29/20 09:00 12/06/20 09:54 Furosemide (Lasix) 20 mg DAILY PO 11/29/20 09:00 12/06/20 09:54 Lorazepam (Ativan) 1 mg BID PO 11/28/20 21:00 11/30/20 18:02 DC 11/30/20 08:25 Al Hydroxide/Mg Hydroxide (Mylanta Plus Xs) 30 ml PRN Q2HRS PRN PO UPSET STOMACH 11/28/20 18:00 Metoprolol Succinate (Toprol Xl) 25 mg DAILY PO 11/29/20 09:00 12/06/20 09:54 Nitroglycerin (Nitrostat) 0.4 mg PRN Q5MIN PRN SL CHEST PAIN 11/28/20 18:00 Quetiapine Fumarate (SEROquel) 50 mg DAILY PO 11/29/20 09:00 12/06/20 09:54 Ropinirole HCl (Requip) 0.5 mg HS PO 11/28/20 21:00 12/06/20 20:22 Senna/Docusate Sodium (Senna Plus) 1 tab BID PO 11/28/20 21:00 12/06/20 20:20 Temazepam (Restoril) 7.5 mg QHS PO 11/28/20 21:00 11/28/20 20:32 DC Triamcinolone Acetonide (Kenalog) 1 esther PRN BID PRN TP BILAT ANKLE RASH 11/28/20 18:00 Cyanocobalamin (Vitamin B-12) 1,000 mcg DAILY PO 11/29/20 09:00 12/06/20 09:53 Zinc Acetate/ Diphenhydramine (Benadryl Topical) 1 esther PRN TID PRN TP BILAT ANKLE RASH ITCHING 11/28/20 18:45 Citalopram Hydrobromide (CeleXA) 10 mg DAILY PO 11/29/20 09:00 12/02/20 17:44 DC 12/02/20 08:23 Famotidine (Pepcid) 40 mg HS PO 11/28/20 21:00 12/06/20 20:19 Lactobacillus Rhamnosus (Culturelle) 2 cap BID PO 11/28/20 21:00 12/06/20 20:20 Levetiracetam (Keppra) 1,000 mg BID PO 11/28/20 21:00 12/06/20 20:21 Melatonin (Melatonin) 6 mg QHS PO 11/28/20 21:00 12/06/20 20:21 Niacin (Slo-Niacin) 250 mg QHS PO 11/28/20 21:00 12/06/20 20:22 Ondansetron HCl (Zofran Odt) 4 mg PRN Q4HRS PRN PO NAUSEA/VOMITING 11/28/20 18:45 Polyethylene Glycol (miraLAX) 17 gm DAILY PO 11/29/20 09:00 12/06/20 09:52 Non-Formulary Medication (Rosuvastatin Calcium (Crestor)) 40 mg HS PO 11/28/20 21:00 UNV Temazepam (Restoril) 7.5 mg QHS PO 11/28/20 21:00 11/30/20 18:01 DC 11/29/20 21:13 Lorazepam (Ativan) 1 mg QHS PO 11/30/20 21:00 12/06/20 20:21 Lorazepam (Ativan) 0.5 mg DAILY PO 12/01/20 09:00 12/06/20 09:55 Mirtazapine (Remeron) 7.5 mg QHS PO 11/30/20 21:00 12/06/20 20:20 Divalproex Sodium (Depakote Sprinkles) 500 mg HS PO 12/01/20 21:00 12/06/20 17:56 DC 12/05/20 20:00 Carbidopa/Levodopa (Sinemet 25/100) 1 tab TID PO 12/01/20 21:00 12/06/20 20:22 Bupropion HCl (Wellbutrin Xl) 150 mg DAILY PO 12/03/20 09:00 12/06/20 17:56 DC 12/06/20 09:53 Olanzapine (ZyPREXA ZYDIS) 2.5 mg PRN Q2HRS PRN PO ANXIETY / AGITATION 12/03/20 19:45 12/05/20 11:00 Bupropion HCl (Wellbutrin Xl) 300 mg DAILY PO 12/07/20 09:00 Divalproex Sodium (Depakote Sprinkles) 750 mg HS PO 12/06/20 21:00 12/06/20 20:20 Current Medications Medications (Trade) Dose Ordered Sig/Vincenzo Route PRN Reason Start Time Stop Time Status Last Admin Dose Admin Divalproex Sodium (Depakote Sprinkles) 750 mg HS PO 12/06/20 21:00 12/06/20 20:20 I have reviewed the current psychotropics carefully including drug interactions. Risk benefit ratio favors no change other than as noted in my dictated progress note. 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
--- NOTE | 2020-12-06 23:34 | PDOC ---
Exam Note: Carl Note: This note covers elements not covered in my initial note. Subjective: The patient was seen individually in the evening of 12/06/2020 with Shama WISDOM, discussed and reviewed the chart. He slept 7 hours previous night. The patient refused his breakfast and refused his medications in pudding. Later they were crushed in his pudding and then he spit everything out. He has been angry at times, labile, then better. Review of Systems: Ambulation impaired in wheelchair consequent with parkinsonian tremors. No CV, , pulmonary, eye system symptoms on review. Mental Status Exam: The patient is oriented to himself. Insight and judgment, recent and remote memory, attention and concentration, fund of knowledge is poor consistent with his diagnoses. Laboratory Data: Reviewed. 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 Anxiety disorder unspecified. Impulse control disorder unspecified. Plan: No change from initial note. Valproic acid level is subtherapeutic at 30 completed on 12/04 on Depakote Sprinkle 500 mg h.s. We will increase to 750 mg h.s. Check CBC, CMP, valproic acid level in 3 days. Rest unchanged for now. Assessment: Vital Signs/I&O: Vital Signs Date Time Temp Pulse Resp B/P (MAP) Pulse Ox O2 Delivery O2 Flow Rate FiO2 12/06/20 15:45 97.2 61 16 104/59 (74) 96 12/06/20 05:55 Room Air I & O 12/05/20 12/05/20 12/06/20 15:00 23:00 07:00 Intake Total 600 ml 240 ml 120 ml Balance 600 ml 240 ml 120 ml Labs: Laboratory Tests Test 12/06/20 07:39 12/06/20 19:29 Glucose (Fingerstick) 92 mg/dL (70-99) 124 mg/dL (70-99) H Current Medications: Meds: Laboratory Tests Test 12/06/20 07:39 12/06/20 19:29 Glucose (Fingerstick) 92 mg/dL 124 mg/dL Current Medications Medications (Trade) Dose Ordered Sig/Vincenzo Route PRN Reason Start Time Stop Time Status Last Admin Dose Admin Acetaminophen (Tylenol) 650 mg PRN Q6HRS PRN PO MILD PAIN / TEMP > 100.3'F 11/28/20 16:45 Multi-Ingredient Ointment (Analgesic [place]) 1 esther PRN QID PRN TP MUSCLE PAIN 11/28/20 16:45 Al Hydroxide/Mg Hydroxide (Mylanta Plus Xs) 15 ml PRN AFTMEALHC PRN PO DYSPEPSIA 11/28/20 16:45 Magnesium Hydroxide (Milk Of Magnesia) 2,400 mg PRN QHS PRN PO 1ST CHOICE CONSTIPATION 11/28/20 16:45 Acetaminophen (Tylenol) 500 mg Q4HRS PRN PO PAIN/FEVER 11/28/20 18:00 12/01/20 09:05 Baclofen (Lioresal) 10 mg QID PO 11/28/20 21:00 12/06/20 20:20 Bisacodyl (Dulcolax Supp) 10 mg PRN DAILY PRN RC 2ND CHOICE CONSTIPATION 11/28/20 18:00 Carbidopa/Levodopa (Sinemet 25/100) 1 tab BID PO 11/28/20 21:00 12/01/20 18:16 DC 12/01/20 09:06 Vitamin D (Vitamin D3) 1,000 unit DAILY PO 11/29/20 09:00 12/06/20 09:52 Clopidogrel Bisulfate (Plavix) 75 mg DAILY PO 11/29/20 09:00 12/06/20 09:54 Donepezil HCl (Aricept) 10 mg QHS PO 11/28/20 21:00 12/06/20 20:23 Fenofibrate (Tricor) 145 mg DAILY PO 11/29/20 09:00 12/06/20 09:54 Furosemide (Lasix) 20 mg DAILY PO 11/29/20 09:00 12/06/20 09:54 Lorazepam (Ativan) 1 mg BID PO 11/28/20 21:00 11/30/20 18:02 DC 11/30/20 08:25 Al Hydroxide/Mg Hydroxide (Mylanta Plus Xs) 30 ml PRN Q2HRS PRN PO UPSET STOMACH 11/28/20 18:00 Metoprolol Succinate (Toprol Xl) 25 mg DAILY PO 11/29/20 09:00 12/06/20 09:54 Nitroglycerin (Nitrostat) 0.4 mg PRN Q5MIN PRN SL CHEST PAIN 11/28/20 18:00 Quetiapine Fumarate (SEROquel) 50 mg DAILY PO 11/29/20 09:00 12/06/20 09:54 Ropinirole HCl (Requip) 0.5 mg HS PO 11/28/20 21:00 12/06/20 20:22 Senna/Docusate Sodium (Senna Plus) 1 tab BID PO 11/28/20 21:00 12/06/20 20:20 Temazepam (Restoril) 7.5 mg QHS PO 11/28/20 21:00 11/28/20 20:32 DC Triamcinolone Acetonide (Kenalog) 1 esther PRN BID PRN TP BILAT ANKLE RASH 11/28/20 18:00 Cyanocobalamin (Vitamin B-12) 1,000 mcg DAILY PO 11/29/20 09:00 12/06/20 09:53 Zinc Acetate/ Diphenhydramine (Benadryl Topical) 1 esther PRN TID PRN TP BILAT ANKLE RASH ITCHING 11/28/20 18:45 Citalopram Hydrobromide (CeleXA) 10 mg DAILY PO 11/29/20 09:00 12/02/20 17:44 DC 12/02/20 08:23 Famotidine (Pepcid) 40 mg HS PO 11/28/20 21:00 12/06/20 20:19 Lactobacillus Rhamnosus (Culturelle) 2 cap BID PO 11/28/20 21:00 12/06/20 20:20 Levetiracetam (Keppra) 1,000 mg BID PO 11/28/20 21:00 12/06/20 20:21 Melatonin (Melatonin) 6 mg QHS PO 11/28/20 21:00 12/06/20 20:21 Niacin (Slo-Niacin) 250 mg QHS PO 11/28/20 21:00 12/06/20 20:22 Ondansetron HCl (Zofran Odt) 4 mg PRN Q4HRS PRN PO NAUSEA/VOMITING 11/28/20 18:45 Polyethylene Glycol (miraLAX) 17 gm DAILY PO 11/29/20 09:00 12/06/20 09:52 Non-Formulary Medication (Rosuvastatin Calcium (Crestor)) 40 mg HS PO 11/28/20 21:00 UNV Temazepam (Restoril) 7.5 mg QHS PO 11/28/20 21:00 11/30/20 18:01 DC 11/29/20 21:13 Lorazepam (Ativan) 1 mg QHS PO 11/30/20 21:00 12/06/20 20:21 Lorazepam (Ativan) 0.5 mg DAILY PO 12/01/20 09:00 12/06/20 09:55 Mirtazapine (Remeron) 7.5 mg QHS PO 11/30/20 21:00 12/06/20 20:20 Divalproex Sodium (Depakote Sprinkles) 500 mg HS PO 12/01/20 21:00 12/06/20 17:56 DC 12/05/20 20:00 Carbidopa/Levodopa (Sinemet 25/100) 1 tab TID PO 12/01/20 21:00 12/06/20 20:22 Bupropion HCl (Wellbutrin Xl) 150 mg DAILY PO 12/03/20 09:00 12/06/20 17:56 DC 12/06/20 09:53 Olanzapine (ZyPREXA ZYDIS) 2.5 mg PRN Q2HRS PRN PO ANXIETY / AGITATION 12/03/20 19:45 12/05/20 11:00 Bupropion HCl (Wellbutrin Xl) 300 mg DAILY PO 12/07/20 09:00 Divalproex Sodium (Depakote Sprinkles) 750 mg HS PO 12/06/20 21:00 12/06/20 20:20 Current Medications Medications (Trade) Dose Ordered Sig/Vincenzo Route PRN Reason Start Time Stop Time Status Last Admin Dose Admin Divalproex Sodium (Depakote Sprinkles) 750 mg HS PO 12/06/20 21:00 12/06/20 20:20 I have reviewed the current psychotropics carefully including drug interactions. Risk benefit ratio favors no change other than as noted in my dictated progress note. 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
[2020-12-07 06:02] VITALS: BP 122/68
[2020-12-07] MEDS: LORazepam 0.5 MG TABLET PO SCH (06:28)
[2020-12-07] MEDS: CYANOCOBALAMIN (VITAMIN B-12) 1,000 MCG TABLET. PO SCH (09:13)
[2020-12-07] MEDS: levETIRAcetam 500 MG TABLET PO SCH ×2 (09:13→20:08)
[2020-12-07] MEDS: BACLOFEN 10 MG TABLET PO SCH ×4 (09:13→20:08)
[2020-12-07] MEDS: CHOLECALCIFEROL (VITAMIN D3) 1,000 UNIT TABLET PO SCH (09:13)
[2020-12-07] MEDS: POLYETHYLENE GLYCOL 3350 17 GM PACKET. PO SCH (09:13)
[2020-12-07] MEDS: CARBIDOPA/LEVODOPA 25/100MG TABLET PO SCH ×3 (09:13→20:05)
[2020-12-07] MEDS: CLOPIDOGREL BISULFATE 75 MG TABLET PO SCH (09:13)
[2020-12-07] MEDS: SENNOSIDES/DOCUSATE 8.6/50MG TABLET. PO SCH ×2 (09:14→20:09)
[2020-12-07] MEDS: FENOFIBRATE NANOCRYSTALLIZED 145 MG TABLET PO SCH (09:14)
[2020-12-07] MEDS: LACTOBACILLUS RHAMNOSUS GG 1 CAPSULE. PO SCH ×2 (09:14→20:09)
[2020-12-07] MEDS: METOPROLOL SUCC 24HR ER 25 MG TAB.ER.24H. PO SCH (09:14)
[2020-12-07] MEDS: FUROSEMIDE 20 MG TABLET PO SCH (09:14)
[2020-12-07] MEDS: buPROPion XL 300 MG TAB.ER.24H. PO SCH (09:14)
[2020-12-07] MEDS: QUEtiapine 50 MG TABLET. PO SCH (09:14)
[2020-12-07 15:46] VITALS: BP 114/72
[2020-12-07] MEDS: MIRTAZAPINE 7.5 MG TABLET. PO SCH (20:05)
[2020-12-07] MEDS: NIACIN ER 500 MG TABLET.ER PO SCH (20:06)
[2020-12-07] MEDS: FAMOTIDINE 20 MG TABLET PO SCH (20:06)
[2020-12-07] MEDS: DIVALPROEX 125 MG CAP.SPRINK PO SCH (20:08)
[2020-12-07] MEDS: LORazepam 1 MG TABLET PO SCH (20:09)
[2020-12-07] MEDS: DONEPEZIL HCL 10 MG TABLET PO SCH (20:09)
[2020-12-07] MEDS: rOPINIRole 0.5 MG TABLET. PO SCH (20:10)
[2020-12-07] MEDS: MELATONIN 3 MG TABLET PO SCH (20:12)
[2020-12-07] MEDS: NON FORMULARY ITEM (Rosuvastatin Calcium (Crestor) 40 MG) PO SCH (21:00)
--- NOTE | 2020-12-07 22:07 | PDOC ---
Exam Note: Carl Note: Please also refer to the separate dictated note~for this date of service dictated separately.~Patient seen individually. Discussed the patient with Nursing staff reviewed the chart.~Reviewed interim history and current functioning. Reviewed vital signs,~Labs/ Radiology~and current medications noted below. Continue current treatment with the changes noted in the dictated addendum note Assessment: Vital Signs/I&O: Vital Signs Date Time Temp Pulse Resp B/P (MAP) Pulse Ox O2 Delivery O2 Flow Rate FiO2 12/07/20 15:46 97.7 60 18 114/72 (86) 100 12/06/20 05:55 Room Air I & O 12/06/20 12/06/20 12/07/20 15:00 23:00 07:00 Intake Total 240 ml 600 ml Balance 240 ml 600 ml Labs: Laboratory Tests Test 12/07/20 07:34 12/07/20 19:03 Glucose (Fingerstick) 74 mg/dL (70-99) 126 mg/dL (70-99) H Current Medications: Meds: Laboratory Tests Test 12/07/20 07:34 12/07/20 19:03 Glucose (Fingerstick) 74 mg/dL 126 mg/dL Current Medications Medications (Trade) Dose Ordered Sig/Vincenzo Route PRN Reason Start Time Stop Time Status Last Admin Dose Admin Acetaminophen (Tylenol) 650 mg PRN Q6HRS PRN PO MILD PAIN / TEMP > 100.3'F 11/28/20 16:45 Multi-Ingredient Ointment (Analgesic [place]) 1 esther PRN QID PRN TP MUSCLE PAIN 11/28/20 16:45 Al Hydroxide/Mg Hydroxide (Mylanta Plus Xs) 15 ml PRN AFTMEALHC PRN PO DYSPEPSIA 11/28/20 16:45 Magnesium Hydroxide (Milk Of Magnesia) 2,400 mg PRN QHS PRN PO 1ST CHOICE CONSTIPATION 11/28/20 16:45 Acetaminophen (Tylenol) 500 mg Q4HRS PRN PO PAIN/FEVER 11/28/20 18:00 12/01/20 09:05 Baclofen (Lioresal) 10 mg QID PO 11/28/20 21:00 12/07/20 20:08 Bisacodyl (Dulcolax Supp) 10 mg PRN DAILY PRN RC 2ND CHOICE CONSTIPATION 11/28/20 18:00 Carbidopa/Levodopa (Sinemet 25/100) 1 tab BID PO 11/28/20 21:00 12/01/20 18:16 DC 12/01/20 09:06 Vitamin D (Vitamin D3) 1,000 unit DAILY PO 11/29/20 09:00 12/07/20 09:13 Clopidogrel Bisulfate (Plavix) 75 mg DAILY PO 11/29/20 09:00 12/07/20 09:13 Donepezil HCl (Aricept) 10 mg QHS PO 11/28/20 21:00 12/07/20 20:09 Fenofibrate (Tricor) 145 mg DAILY PO 11/29/20 09:00 12/07/20 09:14 Furosemide (Lasix) 20 mg DAILY PO 11/29/20 09:00 12/07/20 09:14 Lorazepam (Ativan) 1 mg BID PO 11/28/20 21:00 11/30/20 18:02 DC 11/30/20 08:25 Al Hydroxide/Mg Hydroxide (Mylanta Plus Xs) 30 ml PRN Q2HRS PRN PO UPSET STOMACH 11/28/20 18:00 Metoprolol Succinate (Toprol Xl) 25 mg DAILY PO 11/29/20 09:00 12/07/20 09:14 Nitroglycerin (Nitrostat) 0.4 mg PRN Q5MIN PRN SL CHEST PAIN 11/28/20 18:00 Quetiapine Fumarate (SEROquel) 50 mg DAILY PO 11/29/20 09:00 12/07/20 09:14 Ropinirole HCl (Requip) 0.5 mg HS PO 11/28/20 21:00 12/07/20 20:10 Senna/Docusate Sodium (Senna Plus) 1 tab BID PO 11/28/20 21:00 12/07/20 20:09 Temazepam (Restoril) 7.5 mg QHS PO 11/28/20 21:00 11/28/20 20:32 DC Triamcinolone Acetonide (Kenalog) 1 esther PRN BID PRN TP BILAT ANKLE RASH 11/28/20 18:00 Cyanocobalamin (Vitamin B-12) 1,000 mcg DAILY PO 11/29/20 09:00 12/07/20 09:13 Zinc Acetate/ Diphenhydramine (Benadryl Topical) 1 esther PRN TID PRN TP BILAT ANKLE RASH ITCHING 11/28/20 18:45 Citalopram Hydrobromide (CeleXA) 10 mg DAILY PO 11/29/20 09:00 12/02/20 17:44 DC 12/02/20 08:23 Famotidine (Pepcid) 40 mg HS PO 11/28/20 21:00 12/07/20 20:06 Lactobacillus Rhamnosus (Culturelle) 2 cap BID PO 11/28/20 21:00 12/07/20 20:09 Levetiracetam (Keppra) 1,000 mg BID PO 11/28/20 21:00 12/07/20 20:08 Melatonin (Melatonin) 6 mg QHS PO 11/28/20 21:00 12/07/20 20:12 Niacin (Slo-Niacin) 250 mg QHS PO 11/28/20 21:00 12/07/20 20:06 Ondansetron HCl (Zofran Odt) 4 mg PRN Q4HRS PRN PO NAUSEA/VOMITING 11/28/20 18:45 Polyethylene Glycol (miraLAX) 17 gm DAILY PO 11/29/20 09:00 12/07/20 09:13 Non-Formulary Medication (Rosuvastatin Calcium (Crestor)) 40 mg HS PO 11/28/20 21:00 UNV Temazepam (Restoril) 7.5 mg QHS PO 11/28/20 21:00 11/30/20 18:01 DC 11/29/20 21:13 Lorazepam (Ativan) 1 mg QHS PO 11/30/20 21:00 12/07/20 20:09 Lorazepam (Ativan) 0.5 mg DAILY PO 12/01/20 09:00 12/07/20 06:28 Mirtazapine (Remeron) 7.5 mg QHS PO 11/30/20 21:00 12/07/20 20:05 Divalproex Sodium (Depakote Sprinkles) 500 mg HS PO 12/01/20 21:00 12/06/20 17:56 DC 12/05/20 20:00 Carbidopa/Levodopa (Sinemet 25/100) 1 tab TID PO 12/01/20 21:00 12/07/20 20:05 Bupropion HCl (Wellbutrin Xl) 150 mg DAILY PO 12/03/20 09:00 12/06/20 17:56 DC 12/06/20 09:53 Olanzapine (ZyPREXA ZYDIS) 2.5 mg PRN Q2HRS PRN PO ANXIETY / AGITATION 12/03/20 19:45 12/07/20 06:28 Bupropion HCl (Wellbutrin Xl) 300 mg DAILY PO 12/07/20 09:00 12/07/20 09:14 Divalproex Sodium (Depakote Sprinkles) 750 mg HS PO 12/06/20 21:00 12/07/20 20:08 Current Medications Medications (Trade) Dose Ordered Sig/Vincenzo Route PRN Reason Start Time Stop Time Status Last Admin Dose Admin Bupropion HCl (Wellbutrin Xl) 300 mg DAILY PO 12/07/20 09:00 12/07/20 09:14 I have reviewed the current psychotropics carefully including drug interactions. Risk benefit ratio favors no change other than as noted in my dictated progress note. 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
[2020-12-08 06:34] VITALS: BP 124/73
[2020-12-08] MEDS: BACLOFEN 10 MG TABLET PO SCH ×4 (08:40→19:54)
[2020-12-08] MEDS: CHOLECALCIFEROL (VITAMIN D3) 1,000 UNIT TABLET PO SCH (08:40)
[2020-12-08] MEDS: FENOFIBRATE NANOCRYSTALLIZED 145 MG TABLET PO SCH (08:40)
[2020-12-08] MEDS: CARBIDOPA/LEVODOPA 25/100MG TABLET PO SCH ×3 (08:40→19:56)
[2020-12-08] MEDS: levETIRAcetam 500 MG TABLET PO SCH ×2 (08:40→19:53)
[2020-12-08] MEDS: CLOPIDOGREL BISULFATE 75 MG TABLET PO SCH (08:40)
[2020-12-08] MEDS: CYANOCOBALAMIN (VITAMIN B-12) 1,000 MCG TABLET. PO SCH (08:40)
[2020-12-08] MEDS: SENNOSIDES/DOCUSATE 8.6/50MG TABLET. PO SCH ×2 (08:41→19:55)
[2020-12-08] MEDS: LORazepam 0.5 MG TABLET PO SCH (08:41)
[2020-12-08] MEDS: METOPROLOL SUCC 24HR ER 25 MG TAB.ER.24H. PO SCH (08:41)
[2020-12-08] MEDS: FUROSEMIDE 20 MG TABLET PO SCH (08:41)
[2020-12-08] MEDS: LACTOBACILLUS RHAMNOSUS GG 1 CAPSULE. PO SCH ×2 (08:41→19:54)
[2020-12-08] MEDS: QUEtiapine 50 MG TABLET. PO SCH (08:41)
[2020-12-08] MEDS: buPROPion XL 300 MG TAB.ER.24H. PO SCH (08:41)
[2020-12-08] MEDS: POLYETHYLENE GLYCOL 3350 17 GM PACKET. PO SCH (08:43)
--- NOTE | 2020-12-08 10:42 | TX PLAN ---
Interdisciplinary Tx Plan Admission Information Nov 28, 2020 at 15:30 Legal Status (on Admission): Voluntary, DPOA DPOA/Guardian Name: Sally Carter- Sister in law Contact Other Contact Name: Mray Other Contact Verified Code Status: Full Code Allergies: Coded Allergies: atorvastatin (Verified Allergy, Unknown, 11/28/20) ziprasidone (Verified Allergy, Unknown, 11/28/20) Estimated Length of Stay: 14 Diagnoses Primary Diagnosis: Major neurocognitive d/o, vascular Alz with delusions, depression, BD; Anxiety d/o unspecified; Impulse control d/o Reasons for Admission: Aggressive, Agitated, Angry, Hallucinations, Combative, Confusion/Disoriented, Poor impulse control Problem in Patient's Words: Kimo is unable to verbalize his thoughts/feelings. Per POA and care facility, Kimo's behaviors are endangering others. Additional Admission Comments: Per intake record, restless, agitated, irritable, swinging at staff and peers, hallucinates, threatened to kill who lives at the facility too, threatening peers. Problems Active Problems: restless agitated irritable aggressive/combative threatening others Inactive Problems: adequate meal intake medication compliant Pt Strengths/Limitations Ability for [place]: Poor Cognitive Functioning/Ability: Poor Communication Skills/Ability: Poor Financial Resources: Fair Insight/Judgement: Poor Intellectual Ability: Fair Physical Health: Fair Social Skills: Fair Stability in Family: Fair Verbal Skills: Poor Discharge Criteria Discharge Criteria: Adequate arrangements @DC, Improved behavior, Improved mood/thought Preliminary Discharge Plan Preliminary DC Plan: Shelter Other Arrangements: [facility] Special Precautions Special Precautions: Agitation/Assault Fall Risk: High Initial D/C Plan Kimo will return to [facility] once stable. Identified Discharge Needs: Out patient psychiatry, if available Currently Utilized Resources Currently Utilized Resources/P: PCP Referrals Community Resources: Out patient psychiatry, if available Identified Problems/Hx/Goals Objectives/Short-Term Goals Short Term Goals: Control abnormal behavior, Dec. Aggression, Medication Stabilization, Monitor Med Effects Short Term Goals in Patient's: Kimo is unable to verbalize his thoughts/feelings at this time related to Parkinson's. Per POA, mood and behavior stabilization. Interventions/Frequency Staff Interventions/Frequency&: Nursing to provide routine safety checks, medication adminsitation, and adl support. Psychiatry will see three times weekly. SW to see twice weekly. SW and recreational therapy groups as Kimo is willing to be involved. PT/OT as indicated. History Vocational History: Kimo worked for [employer]. He is retired and receives a small pension from [employer]. Social: Kimo has enjoyed fishing, exercise, and has a dog named "Bear." Education: Kimo graduated from high school, somewhere around the [facility]. Community Follow-up PCP Out patient psychiatry, if available Community Provider/Family Inpu: Letty/OLGA and Wendi/NORTH at [facility] participated in team meeting via phone on this date. Treatment Plan Explained Patient/Crepe Box Tender had this treatment plan explained to him/her as indicated by the signature below and has been given the opportunity to ask questions and make suggestions: Date: Patient/Crepe Box Tender Signature: Status Update Update WEEKLY NOTE/UPDATE: Kimo is averaging 100% of meal intakes and 5.5 hours of sleep at night. He is non-verbal for the most part and not able to express his needs or wishes adequately. He is dependent on staff for support with all care needs and has noticeable tremors. OT consult has been requested by nursing. He has been medication compliant with pills floated in vanilla pudding. While he is around groups in the day room, he is not interacting with others or engaged. Recreational therapy will see Kimo 1:1. CBC, CMP, and Depakote labs will be completed on 12/09/20. Kimo has had instances of balling fists and posturing towards staff and one peer that is intrusive. Tentative d/c mid-late next week. CHLOE BOATENG Dec 08, 2020 10:42
[2020-12-08 16:11] VITALS: BP 128/78
[2020-12-08] MEDS: NON FORMULARY ITEM (Rosuvastatin Calcium (Crestor) 40 MG) PO SCH (19:37)
[2020-12-08] MEDS: DONEPEZIL HCL 10 MG TABLET PO SCH (19:53)
[2020-12-08] MEDS: MIRTAZAPINE 7.5 MG TABLET. PO SCH (19:53)
[2020-12-08] MEDS: DIVALPROEX 125 MG CAP.SPRINK PO SCH (19:54)
[2020-12-08] MEDS: rOPINIRole 0.5 MG TABLET. PO SCH (19:55)
[2020-12-08] MEDS: NIACIN ER 500 MG TABLET.ER PO SCH (19:55)
[2020-12-08] MEDS: MELATONIN 3 MG TABLET PO SCH (19:56)
[2020-12-08] MEDS: FAMOTIDINE 20 MG TABLET PO SCH (19:56)
[2020-12-08] MEDS: LORazepam 1 MG TABLET PO SCH (19:56)
--- NOTE | 2020-12-08 22:08 | PDOC ---
Exam Note: Carl Note: Please also refer to the separate dictated note~for this date of service dictated separately.~Patient seen individually. Discussed the patient with Nursing staff reviewed the chart.~Reviewed interim history and current functioning. Reviewed vital signs,~Labs/ Radiology~and current medications noted below. Continue current treatment with the changes noted in the dictated addendum note Assessment: Vital Signs/I&O: Vital Signs Date Time Temp Pulse Resp B/P (MAP) Pulse Ox O2 Delivery O2 Flow Rate FiO2 12/08/20 16:11 97.5 62 18 128/78 (95) 100 Room Air I & O 12/07/20 12/07/20 12/08/20 15:00 23:00 07:00 Intake Total 600 ml 480 ml Balance 600 ml 480 ml Labs: Laboratory Tests Test 12/08/20 07:17 12/08/20 19:14 Glucose (Fingerstick) 85 mg/dL (70-99) 110 mg/dL (70-99) H Current Medications: Meds: Laboratory Tests Test 12/08/20 07:17 12/08/20 19:14 Glucose (Fingerstick) 85 mg/dL 110 mg/dL Current Medications Medications (Trade) Dose Ordered Sig/Vincenzo Route PRN Reason Start Time Stop Time Status Last Admin Dose Admin Acetaminophen (Tylenol) 650 mg PRN Q6HRS PRN PO MILD PAIN / TEMP > 100.3'F 11/28/20 16:45 Multi-Ingredient Ointment (Analgesic [place]) 1 esther PRN QID PRN TP MUSCLE PAIN 11/28/20 16:45 Al Hydroxide/Mg Hydroxide (Mylanta Plus Xs) 15 ml PRN AFTMEALHC PRN PO DYSPEPSIA 11/28/20 16:45 Magnesium Hydroxide (Milk Of Magnesia) 2,400 mg PRN QHS PRN PO 1ST CHOICE CONSTIPATION 11/28/20 16:45 Acetaminophen (Tylenol) 500 mg Q4HRS PRN PO PAIN/FEVER 11/28/20 18:00 12/01/20 09:05 Baclofen (Lioresal) 10 mg QID PO 11/28/20 21:00 12/08/20 19:54 Bisacodyl (Dulcolax Supp) 10 mg PRN DAILY PRN RC 2ND CHOICE CONSTIPATION 11/28/20 18:00 Carbidopa/Levodopa (Sinemet 25/100) 1 tab BID PO 11/28/20 21:00 12/01/20 18:16 DC 12/01/20 09:06 Vitamin D (Vitamin D3) 1,000 unit DAILY PO 11/29/20 09:00 12/08/20 08:40 Clopidogrel Bisulfate (Plavix) 75 mg DAILY PO 11/29/20 09:00 12/08/20 08:40 Donepezil HCl (Aricept) 10 mg QHS PO 11/28/20 21:00 12/08/20 19:53 Fenofibrate (Tricor) 145 mg DAILY PO 11/29/20 09:00 12/08/20 08:40 Furosemide (Lasix) 20 mg DAILY PO 11/29/20 09:00 12/08/20 08:41 Lorazepam (Ativan) 1 mg BID PO 11/28/20 21:00 11/30/20 18:02 DC 11/30/20 08:25 Al Hydroxide/Mg Hydroxide (Mylanta Plus Xs) 30 ml PRN Q2HRS PRN PO UPSET STOMACH 11/28/20 18:00 Metoprolol Succinate (Toprol Xl) 25 mg DAILY PO 11/29/20 09:00 12/08/20 08:41 Nitroglycerin (Nitrostat) 0.4 mg PRN Q5MIN PRN SL CHEST PAIN 11/28/20 18:00 Quetiapine Fumarate (SEROquel) 50 mg DAILY PO 11/29/20 09:00 12/08/20 08:41 Ropinirole HCl (Requip) 0.5 mg HS PO 11/28/20 21:00 12/08/20 19:55 Senna/Docusate Sodium (Senna Plus) 1 tab BID PO 11/28/20 21:00 12/08/20 19:55 Temazepam (Restoril) 7.5 mg QHS PO 11/28/20 21:00 11/28/20 20:32 DC Triamcinolone Acetonide (Kenalog) 1 esther PRN BID PRN TP BILAT ANKLE RASH 11/28/20 18:00 Cyanocobalamin (Vitamin B-12) 1,000 mcg DAILY PO 11/29/20 09:00 12/08/20 08:40 Zinc Acetate/ Diphenhydramine (Benadryl Topical) 1 esther PRN TID PRN TP BILAT ANKLE RASH ITCHING 11/28/20 18:45 Citalopram Hydrobromide (CeleXA) 10 mg DAILY PO 11/29/20 09:00 12/02/20 17:44 DC 12/02/20 08:23 Famotidine (Pepcid) 40 mg HS PO 11/28/20 21:00 12/08/20 19:56 Lactobacillus Rhamnosus (Culturelle) 2 cap BID PO 11/28/20 21:00 12/08/20 19:54 Levetiracetam (Keppra) 1,000 mg BID PO 11/28/20 21:00 12/08/20 19:53 Melatonin (Melatonin) 6 mg QHS PO 11/28/20 21:00 12/08/20 19:56 Niacin (Slo-Niacin) 250 mg QHS PO 11/28/20 21:00 12/08/20 19:55 Ondansetron HCl (Zofran Odt) 4 mg PRN Q4HRS PRN PO NAUSEA/VOMITING 11/28/20 18:45 Polyethylene Glycol (miraLAX) 17 gm DAILY PO 11/29/20 09:00 12/08/20 08:43 Non-Formulary Medication (Rosuvastatin Calcium (Crestor)) 40 mg HS PO 11/28/20 21:00 UNV Temazepam (Restoril) 7.5 mg QHS PO 11/28/20 21:00 11/30/20 18:01 DC 11/29/20 21:13 Lorazepam (Ativan) 1 mg QHS PO 11/30/20 21:00 12/08/20 19:56 Lorazepam (Ativan) 0.5 mg DAILY PO 12/01/20 09:00 12/08/20 08:41 Mirtazapine (Remeron) 7.5 mg QHS PO 11/30/20 21:00 12/08/20 19:53 Divalproex Sodium (Depakote Sprinkles) 500 mg HS PO 12/01/20 21:00 12/06/20 17:56 DC 12/05/20 20:00 Carbidopa/Levodopa (Sinemet 25/100) 1 tab TID PO 12/01/20 21:00 12/08/20 19:56 Bupropion HCl (Wellbutrin Xl) 150 mg DAILY PO 12/03/20 09:00 12/06/20 17:56 DC 12/06/20 09:53 Olanzapine (ZyPREXA ZYDIS) 2.5 mg PRN Q2HRS PRN PO ANXIETY / AGITATION 12/03/20 19:45 12/07/20 06:28 Bupropion HCl (Wellbutrin Xl) 300 mg DAILY PO 12/07/20 09:00 12/08/20 08:41 Divalproex Sodium (Depakote Sprinkles) 750 mg HS PO 12/06/20 21:00 12/08/20 19:54 I have reviewed the current psychotropics carefully including drug interactions. Risk benefit ratio favors no change other than as noted in my dictated progress note. 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
[2020-12-09 06:06] VITALS: BP 105/60
[2020-12-09 06:55] LABS: BASO % 1 % (0-3); EOS # 0.1 x10^3/uL (0.0-0.7); EOS % 2 % (0-3); HEMATOCRIT 42.8 % (39.0-53.0); HEMOGLOBIN 14.2 g/dL (13.0-17.5); LYMPH # 2.4 x10^3/uL (1.0-4.8); LYMPH % 36 % (24-48); MEAN CORPUSCULAR HEMOGLOBIN 30 pg (25-35); MEAN CORPUSCULAR HGB CONC 33 g/dL (31-37); MEAN CORPUSCULAR VOLUME 91 fL (79-100); MONO # 0.7 x10^3/uL (0.0-1.1); MONO % 10 % (0-9); NEUT # 3.4 x10^3uL (1.8-7.7); NEUT % 52 % (31-73); PLATELET COUNT 305 x10^3/uL (140-400); RED BLOOD COUNT 4.71 x10^6/uL (4.30-5.70); RED CELL DISTRIBUTION WIDTH 14.8 % (11.5-14.5); WHITE BLOOD COUNT 6.6 x10^3/uL (4.0-11.0)
[2020-12-09 08:04] LABS: ALBUMIN 3.9 g/dL (3.4-5.0); ALBUMIN/GLOBULIN RATIO 1.2 (1.0-1.7); ALK PHOS 77 U/L (46-116); ALT (SGPT) 20 U/L (16-63); ANION GAP 11 (6-14); AST (SGOT) 22 U/L (15-37); BLOOD UREA NITROGEN 17 mg/dL (8-26); BUN/CREATININE RATIO 14 (6-20); CALCIUM 9.3 mg/dL (8.5-10.1); CARBON DIOXIDE 28 mmol/L (21-32); CHLORIDE 106 mmol/L (98-107); CREATININE 1.2 mg/dL (0.7-1.3); GFR 59.5; GLUCOSE 85 mg/dL (70-99); POTASSIUM 3.7 mmol/L (3.5-5.1); SODIUM 145 mmol/L (136-145); TOTAL BILIRUBIN 0.5 mg/dL (0.2-1.0); TOTAL PROTEIN 7.1 g/dL (6.4-8.2)
[2020-12-09] MEDS: QUEtiapine 50 MG TABLET. PO SCH (08:04)
[2020-12-09] MEDS: BACLOFEN 10 MG TABLET PO SCH ×4 (08:04→20:07)
[2020-12-09] MEDS: CHOLECALCIFEROL (VITAMIN D3) 1,000 UNIT TABLET PO SCH (08:04)
[2020-12-09] MEDS: LACTOBACILLUS RHAMNOSUS GG 1 CAPSULE. PO SCH ×2 (08:04→20:06)
[2020-12-09] MEDS: buPROPion XL 300 MG TAB.ER.24H. PO SCH (08:04)
[2020-12-09] MEDS: LORazepam 0.5 MG TABLET PO SCH (08:04)
[2020-12-09] MEDS: SENNOSIDES/DOCUSATE 8.6/50MG TABLET. PO SCH ×2 (08:04→20:08)
[2020-12-09] MEDS: CARBIDOPA/LEVODOPA 25/100MG TABLET PO SCH ×3 (08:04→20:08)
[2020-12-09] MEDS: CYANOCOBALAMIN (VITAMIN B-12) 1,000 MCG TABLET. PO SCH (08:04)
[2020-12-09] MEDS: FENOFIBRATE NANOCRYSTALLIZED 145 MG TABLET PO SCH (08:04)
[2020-12-09] MEDS: CLOPIDOGREL BISULFATE 75 MG TABLET PO SCH (08:04)
[2020-12-09 08:06] VITALS: BP 118/74
[2020-12-09] MEDS: METOPROLOL SUCC 24HR ER 25 MG TAB.ER.24H. PO SCH (08:06)
[2020-12-09] MEDS: levETIRAcetam 500 MG TABLET PO SCH ×2 (08:07→20:08)
[2020-12-09] MEDS: FUROSEMIDE 20 MG TABLET PO SCH (08:07)
[2020-12-09] MEDS: POLYETHYLENE GLYCOL 3350 17 GM PACKET. PO SCH (08:07)
[2020-12-09 08:11] LABS: VAL ACID 58 mcg/mL (50-100)
--- NOTE | 2020-12-09 08:35 | PDOC ---
Exam Note: Carl Note: This note is a late entry for 12/07/2020 covers elements not covered in my initial note. Subjective: The patient was seen individually in the evening of 12/07/2020 with Shama WISDOM, discussed and reviewed the chart. He slept 7-3/4 hours previous night. The patient is restless but better than before. He received Ativan earlier in the day, took a.m. medications. Review of Systems: Ambulation impaired in wheelchair consequent with park insonian tremors. No CV, , pulmonary, eye system symptoms on review. Mental Status Exam: The patient is oriented to himself. Insight and judgment, recent and remote memory, attention and concentration, fund of knowledge is poor consistent with his diagnoses. Laboratory Data: Reviewed. 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 Anxiety disorder unspecified. Impulse control disorder unspecified. Plan: No change from initial note. Adjust further as clinically indicated. Assessment: Vital Signs/I&O: Vital Signs Date Time Temp Pulse Resp B/P (MAP) Pulse Ox O2 Delivery O2 Flow Rate FiO2 12/09/20 08:06 78 118/74 12/09/20 06:06 97.8 18 99 Room Air I & O 12/08/20 12/08/20 12/09/20 15:00 23:00 07:00 Intake Total 360 ml 840 ml Balance 360 ml 840 ml Labs: Laboratory Tests Test 12/08/20 19:14 12/09/20 06:44 12/09/20 08:06 Glucose (Fingerstick) 110 mg/dL (70-99) H 76 mg/dL (70-99) White Blood Count 6.6 x10^3/uL (4.0-11.0) Red Blood Count 4.71 x10^6/uL (4.30-5.70) Hemoglobin 14.2 g/dL (13.0-17.5) Hematocrit 42.8 % (39.0-53.0) Mean Corpuscular Volume 91 fL (79-100) Mean Corpuscular Hemoglobin 30 pg (25-35) Mean Corpuscular Hemoglobin Concent 33 g/dL (31-37) Red Cell Distribution Width 14.8 % (11.5-14.5) H Platelet Count 305 x10^3/uL (140-400) Neutrophils (%) (Auto) 52 % (31-73) Lymphocytes (%) (Auto) 36 % (24-48) Monocytes (%) (Auto) 10 % (0-9) H Eosinophils (%) (Auto) 2 % (0-3) Basophils (%) (Auto) 1 % (0-3) Neutrophils # (Auto) 3.4 x10^3uL (1.8-7.7) Lymphocytes # (Auto) 2.4 x10^3/uL (1.0-4.8) Monocytes # (Auto) 0.7 x10^3/uL (0.0-1.1) Eosinophils # (Auto) 0.1 x10^3/uL (0.0-0.7) Basophils # (Auto) 0.0 x10^3/uL (0.0-0.2) Sodium Level 145 mmol/L (136-145) Potassium Level 3.7 mmol/L (3.5-5.1) Chloride Level 106 mmol/L (98-107) Carbon Dioxide Level 28 mmol/L (21-32) Anion Gap 11 (6-14) Blood Urea Nitrogen 17 mg/dL (8-26) Creatinine 1.2 mg/dL (0.7-1.3) Estimated GFR (Cockcroft-Gault) 59.5 BUN/Creatinine Ratio 14 (6-20) Glucose Level 85 mg/dL (70-99) Calcium Level 9.3 mg/dL (8.5-10.1) Total Bilirubin 0.5 mg/dL (0.2-1.0) Aspartate Amino Transferase (AST) 22 U/L (15-37) Alanine Aminotransferase (ALT) 20 U/L (16-63) Alkaline Phosphatase 77 U/L (46-116) Total Protein 7.1 g/dL (6.4-8.2) Albumin 3.9 g/dL (3.4-5.0) Albumin/Globulin Ratio 1.2 (1.0-1.7) Valproic Acid Level 58 mcg/mL (50-100) Valproic Acid Last Dose Date 12/08/20 Valproic Acid Last Dose Time 2100 Current Medications: Meds: Laboratory Tests Test 12/08/20 19:14 12/09/20 06:44 12/09/20 08:06 Glucose (Fingerstick) 110 mg/dL 76 mg/dL White Blood Count 6.6 x10^3/uL Red Blood Count 4.71 x10^6/uL Hemoglobin 14.2 g/dL Hematocrit 42.8 % Mean Corpuscular Volume 91 fL Mean Corpuscular Hemoglobin 30 pg Mean Corpuscular Hemoglobin Concent 33 g/dL Red Cell Distribution Width 14.8 % Platelet Count 305 x10^3/uL Neutrophils (%) (Auto) 52 % Lymphocytes (%) (Auto) 36 % Monocytes (%) (Auto) 10 % Eosinophils (%) (Auto) 2 % Basophils (%) (Auto) 1 % Neutrophils # (Auto) 3.4 x10^3uL Lymphocytes # (Auto) 2.4 x10^3/uL Monocytes # (Auto) 0.7 x10^3/uL Eosinophils # (Auto) 0.1 x10^3/uL Basophils # (Auto) 0.0 x10^3/uL Sodium Level 145 mmol/L Potassium Level 3.7 mmol/L Chloride Level 106 mmol/L Carbon Dioxide Level 28 mmol/L Anion Gap 11 Blood Urea Nitrogen 17 mg/dL Creatinine 1.2 mg/dL Estimated GFR (Cockcroft-Gault) 59.5 BUN/Creatinine Ratio 14 Glucose Level 85 mg/dL Calcium Level 9.3 mg/dL Total Bilirubin 0.5 mg/dL Aspartate Amino Transf (AST/SGOT) 22 U/L Alanine Aminotransferase (ALT/SGPT) 20 U/L Alkaline Phosphatase 77 U/L Total Protein 7.1 g/dL Albumin 3.9 g/dL Albumin/Globulin Ratio 1.2 Valproic Acid (Depakene) Level 58 mcg/mL Valproic Acid Last Dose Date 12/08/20 Valproic Acid Last Dose Time 2100 Current Medications Medications (Trade) Dose Ordered Sig/Vincenzo Route PRN Reason Start Time Stop Time Status Last Admin Dose Admin Acetaminophen (Tylenol) 650 mg PRN Q6HRS PRN PO MILD PAIN / TEMP > 100.3'F 11/28/20 16:45 Multi-Ingredient Ointment (Analgesic [place]) 1 esther PRN QID PRN TP MUSCLE PAIN 11/28/20 16:45 Al Hydroxide/Mg Hydroxide (Mylanta Plus Xs) 15 ml PRN AFTMEALHC PRN PO DYSPEPSIA 11/28/20 16:45 Magnesium Hydroxide (Milk Of Magnesia) 2,400 mg PRN QHS PRN PO 1ST CHOICE CONSTIPATION 11/28/20 16:45 Acetaminophen (Tylenol) 500 mg Q4HRS PRN PO PAIN/FEVER 11/28/20 18:00 12/01/20 09:05 Baclofen (Lioresal) 10 mg QID PO 11/28/20 21:00 12/09/20 08:04 Bisacodyl (Dulcolax Supp) 10 mg PRN DAILY PRN RC 2ND CHOICE CONSTIPATION 11/28/20 18:00 Carbidopa/Levodopa (Sinemet 25/100) 1 tab BID PO 11/28/20 21:00 12/01/20 18:16 DC 12/01/20 09:06 Vitamin D (Vitamin D3) 1,000 unit DAILY PO 11/29/20 09:00 12/09/20 08:04 Clopidogrel Bisulfate (Plavix) 75 mg DAILY PO 11/29/20 09:00 12/09/20 08:04 Donepezil HCl (Aricept) 10 mg QHS PO 11/28/20 21:00 12/08/20 19:53 Fenofibrate (Tricor) 145 mg DAILY PO 11/29/20 09:00 12/09/20 08:04 Furosemide (Lasix) 20 mg DAILY PO 11/29/20 09:00 12/09/20 08:07 Lorazepam (Ativan) 1 mg BID PO 11/28/20 21:00 11/30/20 18:02 DC 11/30/20 08:25 Al Hydroxide/Mg Hydroxide (Mylanta Plus Xs) 30 ml PRN Q2HRS PRN PO UPSET STOMACH 11/28/20 18:00 Metoprolol Succinate (Toprol Xl) 25 mg DAILY PO 11/29/20 09:00 12/09/20 08:06 Nitroglycerin (Nitrostat) 0.4 mg PRN Q5MIN PRN SL CHEST PAIN 11/28/20 18:00 Quetiapine Fumarate (SEROquel) 50 mg DAILY PO 11/29/20 09:00 12/09/20 08:04 Ropinirole HCl (Requip) 0.5 mg HS PO 11/28/20 21:00 12/08/20 19:55 Senna/Docusate Sodium (Senna Plus) 1 tab BID PO 11/28/20 21:00 12/09/20 08:04 Temazepam (Restoril) 7.5 mg QHS PO 11/28/20 21:00 11/28/20 20:32 DC Triamcinolone Acetonide (Kenalog) 1 esther PRN BID PRN TP BILAT ANKLE RASH 11/28/20 18:00 Cyanocobalamin (Vitamin B-12) 1,000 mcg DAILY PO 11/29/20 09:00 12/09/20 08:04 Zinc Acetate/ Diphenhydramine (Benadryl Topical) 1 esther PRN TID PRN TP BILAT ANKLE RASH ITCHING 11/28/20 18:45 Citalopram Hydrobromide (CeleXA) 10 mg DAILY PO 11/29/20 09:00 12/02/20 17:44 DC 12/02/20 08:23 Famotidine (Pepcid) 40 mg HS PO 11/28/20 21:00 12/08/20 19:56 Lactobacillus Rhamnosus (Culturelle) 2 cap BID PO 11/28/20 21:00 12/09/20 08:04 Levetiracetam (Keppra) 1,000 mg BID PO 11/28/20 21:00 12/09/20 08:07 Melatonin (Melatonin) 6 mg QHS PO 11/28/20 21:00 12/08/20 19:56 Niacin (Slo-Niacin) 250 mg QHS PO 11/28/20 21:00 12/08/20 19:55 Ondansetron HCl (Zofran Odt) 4 mg PRN Q4HRS PRN PO NAUSEA/VOMITING 11/28/20 18:45 Polyethylene Glycol (miraLAX) 17 gm DAILY PO 11/29/20 09:00 12/09/20 08:07 Non-Formulary Medication (Rosuvastatin Calcium (Crestor)) 40 mg HS PO 11/28/20 21:00 UNV Temazepam (Restoril) 7.5 mg QHS PO 11/28/20 21:00 11/30/20 18:01 DC 11/29/20 21:13 Lorazepam (Ativan) 1 mg QHS PO 11/30/20 21:00 12/08/20 19:56 Lorazepam (Ativan) 0.5 mg DAILY PO 12/01/20 09:00 12/09/20 08:04 Mirtazapine (Remeron) 7.5 mg QHS PO 11/30/20 21:00 12/08/20 19:53 Divalproex Sodium (Depakote Sprinkles) 500 mg HS PO 12/01/20 21:00 12/06/20 17:56 DC 12/05/20 20:00 Carbidopa/Levodopa (Sinemet 25/100) 1 tab TID PO 12/01/20 21:00 12/09/20 08:04 Bupropion HCl (Wellbutrin Xl) 150 mg DAILY PO 12/03/20 09:00 12/06/20 17:56 DC 12/06/20 09:53 Olanzapine (ZyPREXA ZYDIS) 2.5 mg PRN Q2HRS PRN PO ANXIETY / AGITATION 12/03/20 19:45 12/07/20 06:28 Bupropion HCl (Wellbutrin Xl) 300 mg DAILY PO 12/07/20 09:00 12/09/20 08:04 Divalproex Sodium (Depakote Sprinkles) 750 mg HS PO 12/06/20 21:00 12/08/20 19:54 I have reviewed the current psychotropics carefully including drug interactions. Risk benefit ratio favors no change other than as noted in my dictated progress note. 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
--- NOTE | 2020-12-09 08:55 | PDOC ---
Exam Note: Carl Note: This note is a late entry for 12/08/2020 covers elements not covered in my initial note. Subjective: The patient was reviewed in the morning of 12/08/2020 for a treatment team meeting with Eloisa Duarte (social work program coordinator), Brynn, activity therapy and Peace [facility]IS[facility], discussed and reviewed the chart. He slept 7-1/4 hours previous night. The patient takes his medications floated in pudding. He is less grandiose, wandering. Review of Systems: Ambulation impaired in wheelchair, has difficulty with movements consequent to his parkinsonian tremors. No CV, , pulmonary, eye system symptoms on review. Mental Status Exam: The patient is oriented to himself. Insight and judgment, recent and remote memory, attention and concentration, fund of knowledge is poor consistent with his diagnoses. Laboratory Data: Reviewed. 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 Anxiety disorder unspecified. Impulse control disorder unspecified. Plan: No change from initial note. Assessment: Vital Signs/I&O: Vital Signs Date Time Temp Pulse Resp B/P (MAP) Pulse Ox O2 Delivery O2 Flow Rate FiO2 12/09/20 08:06 78 118/74 12/09/20 06:06 97.8 18 99 Room Air I & O 12/08/20 12/08/20 12/09/20 15:00 23:00 07:00 Intake Total 360 ml 840 ml Balance 360 ml 840 ml Labs: Laboratory Tests Test 12/08/20 19:14 12/09/20 06:44 12/09/20 08:06 Glucose (Fingerstick) 110 mg/dL (70-99) H 76 mg/dL (70-99) White Blood Count 6.6 x10^3/uL (4.0-11.0) Red Blood Count 4.71 x10^6/uL (4.30-5.70) Hemoglobin 14.2 g/dL (13.0-17.5) Hematocrit 42.8 % (39.0-53.0) Mean Corpuscular Volume 91 fL (79-100) Mean Corpuscular Hemoglobin 30 pg (25-35) Mean Corpuscular Hemoglobin Concent 33 g/dL (31-37) Red Cell Distribution Width 14.8 % (11.5-14.5) H Platelet Count 305 x10^3/uL (140-400) Neutrophils (%) (Auto) 52 % (31-73) Lymphocytes (%) (Auto) 36 % (24-48) Monocytes (%) (Auto) 10 % (0-9) H Eosinophils (%) (Auto) 2 % (0-3) Basophils (%) (Auto) 1 % (0-3) Neutrophils # (Auto) 3.4 x10^3uL (1.8-7.7) Lymphocytes # (Auto) 2.4 x10^3/uL (1.0-4.8) Monocytes # (Auto) 0.7 x10^3/uL (0.0-1.1) Eosinophils # (Auto) 0.1 x10^3/uL (0.0-0.7) Basophils # (Auto) 0.0 x10^3/uL (0.0-0.2) Sodium Level 145 mmol/L (136-145) Potassium Level 3.7 mmol/L (3.5-5.1) Chloride Level 106 mmol/L (98-107) Carbon Dioxide Level 28 mmol/L (21-32) Anion Gap 11 (6-14) Blood Urea Nitrogen 17 mg/dL (8-26) Creatinine 1.2 mg/dL (0.7-1.3) Estimated GFR (Cockcroft-Gault) 59.5 BUN/Creatinine Ratio 14 (6-20) Glucose Level 85 mg/dL (70-99) Calcium Level 9.3 mg/dL (8.5-10.1) Total Bilirubin 0.5 mg/dL (0.2-1.0) Aspartate Amino Transferase (AST) 22 U/L (15-37) Alanine Aminotransferase (ALT) 20 U/L (16-63) Alkaline Phosphatase 77 U/L (46-116) Total Protein 7.1 g/dL (6.4-8.2) Albumin 3.9 g/dL (3.4-5.0) Albumin/Globulin Ratio 1.2 (1.0-1.7) Valproic Acid Level 58 mcg/mL (50-100) Valproic Acid Last Dose Date 12/08/20 Valproic Acid Last Dose Time 2100 Current Medications: Meds: Laboratory Tests Test 12/08/20 19:14 12/09/20 06:44 12/09/20 08:06 Glucose (Fingerstick) 110 mg/dL 76 mg/dL White Blood Count 6.6 x10^3/uL Red Blood Count 4.71 x10^6/uL Hemoglobin 14.2 g/dL Hematocrit 42.8 % Mean Corpuscular Volume 91 fL Mean Corpuscular Hemoglobin 30 pg Mean Corpuscular Hemoglobin Concent 33 g/dL Red Cell Distribution Width 14.8 % Platelet Count 305 x10^3/uL Neutrophils (%) (Auto) 52 % Lymphocytes (%) (Auto) 36 % Monocytes (%) (Auto) 10 % Eosinophils (%) (Auto) 2 % Basophils (%) (Auto) 1 % Neutrophils # (Auto) 3.4 x10^3uL Lymphocytes # (Auto) 2.4 x10^3/uL Monocytes # (Auto) 0.7 x10^3/uL Eosinophils # (Auto) 0.1 x10^3/uL Basophils # (Auto) 0.0 x10^3/uL Sodium Level 145 mmol/L Potassium Level 3.7 mmol/L Chloride Level 106 mmol/L Carbon Dioxide Level 28 mmol/L Anion Gap 11 Blood Urea Nitrogen 17 mg/dL Creatinine 1.2 mg/dL Estimated GFR (Cockcroft-Gault) 59.5 BUN/Creatinine Ratio 14 Glucose Level 85 mg/dL Calcium Level 9.3 mg/dL Total Bilirubin 0.5 mg/dL Aspartate Amino Transf (AST/SGOT) 22 U/L Alanine Aminotransferase (ALT/SGPT) 20 U/L Alkaline Phosphatase 77 U/L Total Protein 7.1 g/dL Albumin 3.9 g/dL Albumin/Globulin Ratio 1.2 Valproic Acid (Depakene) Level 58 mcg/mL Valproic Acid Last Dose Date 12/08/20 Valproic Acid Last Dose Time 2100 Current Medications Medications (Trade) Dose Ordered Sig/Vincenzo Route PRN Reason Start Time Stop Time Status Last Admin Dose Admin Acetaminophen (Tylenol) 650 mg PRN Q6HRS PRN PO MILD PAIN / TEMP > 100.3'F 11/28/20 16:45 Multi-Ingredient Ointment (Analgesic [place]) 1 esther PRN QID PRN TP MUSCLE PAIN 11/28/20 16:45 Al Hydroxide/Mg Hydroxide (Mylanta Plus Xs) 15 ml PRN AFTMEALHC PRN PO DYSPEPSIA 11/28/20 16:45 Magnesium Hydroxide (Milk Of Magnesia) 2,400 mg PRN QHS PRN PO 1ST CHOICE CONSTIPATION 11/28/20 16:45 Acetaminophen (Tylenol) 500 mg Q4HRS PRN PO PAIN/FEVER 11/28/20 18:00 12/01/20 09:05 Baclofen (Lioresal) 10 mg QID PO 11/28/20 21:00 12/09/20 08:04 Bisacodyl (Dulcolax Supp) 10 mg PRN DAILY PRN RC 2ND CHOICE CONSTIPATION 11/28/20 18:00 Carbidopa/Levodopa (Sinemet 25/100) 1 tab BID PO 11/28/20 21:00 12/01/20 18:16 DC 12/01/20 09:06 Vitamin D (Vitamin D3) 1,000 unit DAILY PO 11/29/20 09:00 12/09/20 08:04 Clopidogrel Bisulfate (Plavix) 75 mg DAILY PO 11/29/20 09:00 12/09/20 08:04 Donepezil HCl (Aricept) 10 mg QHS PO 11/28/20 21:00 12/08/20 19:53 Fenofibrate (Tricor) 145 mg DAILY PO 11/29/20 09:00 12/09/20 08:04 Furosemide (Lasix) 20 mg DAILY PO 11/29/20 09:00 12/09/20 08:07 Lorazepam (Ativan) 1 mg BID PO 11/28/20 21:00 11/30/20 18:02 DC 11/30/20 08:25 Al Hydroxide/Mg Hydroxide (Mylanta Plus Xs) 30 ml PRN Q2HRS PRN PO UPSET STOMACH 11/28/20 18:00 Metoprolol Succinate (Toprol Xl) 25 mg DAILY PO 11/29/20 09:00 12/09/20 08:06 Nitroglycerin (Nitrostat) 0.4 mg PRN Q5MIN PRN SL CHEST PAIN 11/28/20 18:00 Quetiapine Fumarate (SEROquel) 50 mg DAILY PO 11/29/20 09:00 12/09/20 08:04 Ropinirole HCl (Requip) 0.5 mg HS PO 11/28/20 21:00 12/08/20 19:55 Senna/Docusate Sodium (Senna Plus) 1 tab BID PO 11/28/20 21:00 12/09/20 08:04 Temazepam (Restoril) 7.5 mg QHS PO 11/28/20 21:00 11/28/20 20:32 DC Triamcinolone Acetonide (Kenalog) 1 esther PRN BID PRN TP BILAT ANKLE RASH 11/28/20 18:00 Cyanocobalamin (Vitamin B-12) 1,000 mcg DAILY PO 11/29/20 09:00 12/09/20 08:04 Zinc Acetate/ Diphenhydramine (Benadryl Topical) 1 esther PRN TID PRN TP BILAT ANKLE RASH ITCHING 11/28/20 18:45 Citalopram Hydrobromide (CeleXA) 10 mg DAILY PO 11/29/20 09:00 12/02/20 17:44 DC 12/02/20 08:23 Famotidine (Pepcid) 40 mg HS PO 11/28/20 21:00 12/08/20 19:56 Lactobacillus Rhamnosus (Culturelle) 2 cap BID PO 11/28/20 21:00 12/09/20 08:04 Levetiracetam (Keppra) 1,000 mg BID PO 11/28/20 21:00 12/09/20 08:07 Melatonin (Melatonin) 6 mg QHS PO 11/28/20 21:00 12/08/20 19:56 Niacin (Slo-Niacin) 250 mg QHS PO 11/28/20 21:00 12/08/20 19:55 Ondansetron HCl (Zofran Odt) 4 mg PRN Q4HRS PRN PO NAUSEA/VOMITING 11/28/20 18:45 Polyethylene Glycol (miraLAX) 17 gm DAILY PO 11/29/20 09:00 12/09/20 08:07 Non-Formulary Medication (Rosuvastatin Calcium (Crestor)) 40 mg HS PO 11/28/20 21:00 UNV Temazepam (Restoril) 7.5 mg QHS PO 11/28/20 21:00 11/30/20 18:01 DC 11/29/20 21:13 Lorazepam (Ativan) 1 mg QHS PO 11/30/20 21:00 12/08/20 19:56 Lorazepam (Ativan) 0.5 mg DAILY PO 12/01/20 09:00 12/09/20 08:04 Mirtazapine (Remeron) 7.5 mg QHS PO 11/30/20 21:00 12/08/20 19:53 Divalproex Sodium (Depakote Sprinkles) 500 mg HS PO 12/01/20 21:00 12/06/20 17:56 DC 12/05/20 20:00 Carbidopa/Levodopa (Sinemet 25/100) 1 tab TID PO 12/01/20 21:00 12/09/20 08:04 Bupropion HCl (Wellbutrin Xl) 150 mg DAILY PO 12/03/20 09:00 12/06/20 17:56 DC 12/06/20 09:53 Olanzapine (ZyPREXA ZYDIS) 2.5 mg PRN Q2HRS PRN PO ANXIETY / AGITATION 12/03/20 19:45 12/07/20 06:28 Bupropion HCl (Wellbutrin Xl) 300 mg DAILY PO 12/07/20 09:00 12/09/20 08:04 Divalproex Sodium (Depakote Sprinkles) 750 mg HS PO 12/06/20 21:00 12/08/20 19:54 I have reviewed the current psychotropics carefully including drug interactions. Risk benefit ratio favors no change other than as noted in my dictated progress note. Diagnosis: Problems: (1) Impulse control disorder, unspecified (2) Anxiety disorder, unspecified (3) Major neurocognitive disorder (4) Lewy body dementia with behavioral disturbance (5) Dementia, vascular, with delusions (6) Dementia, vascular, with delirium (7) Dementia in Alzheimer's disease with depression (8) Dementia in Alzheimer's disease with delusions (9) Parkinson's disease GIGI MCCOY MD Dec 09, 2020 08:55
[2020-12-09 15:45] VITALS: BP 128/74
[2020-12-09] MEDS: NON FORMULARY ITEM (Rosuvastatin Calcium (Crestor) 40 MG) PO SCH (19:41)
[2020-12-09] MEDS: rOPINIRole 0.5 MG TABLET. PO SCH (20:04)
[2020-12-09] MEDS: MELATONIN 3 MG TABLET PO SCH (20:05)
[2020-12-09] MEDS: LORazepam 1 MG TABLET PO SCH (20:05)
[2020-12-09] MEDS: FAMOTIDINE 20 MG TABLET PO SCH (20:06)
[2020-12-09] MEDS: NIACIN ER 500 MG TABLET.ER PO SCH (20:07)
[2020-12-09] MEDS: DIVALPROEX 125 MG CAP.SPRINK PO SCH (20:09)
[2020-12-09] MEDS: MIRTAZAPINE 7.5 MG TABLET. PO SCH (20:09)
[2020-12-09] MEDS: DONEPEZIL HCL 10 MG TABLET PO SCH (20:09)
--- NOTE | 2020-12-09 22:06 | PDOC ---
Exam Note: Carl Note: Please also refer to the separate dictated note~for this date of service dictated separately.~Patient seen individually. Discussed the patient with Nursing staff reviewed the chart.~Reviewed interim history and current functioning. Reviewed vital signs,~Labs/ Radiology~and current medications noted below. Continue current treatment with the changes noted in the dictated addendum note Assessment: Vital Signs/I&O: Vital Signs Date Time Temp Pulse Resp B/P (MAP) Pulse Ox O2 Delivery O2 Flow Rate FiO2 12/09/20 15:45 97.2 88 17 128/74 (92) 98 12/09/20 06:06 Room Air I & O 12/08/20 12/08/20 12/09/20 14:59 22:59 06:59 Intake Total 360 ml 840 ml Balance 360 ml 840 ml Labs: Laboratory Tests Test 12/09/20 06:44 12/09/20 08:06 12/09/20 19:11 White Blood Count 6.6 x10^3/uL (4.0-11.0) Red Blood Count 4.71 x10^6/uL (4.30-5.70) Hemoglobin 14.2 g/dL (13.0-17.5) Hematocrit 42.8 % (39.0-53.0) Mean Corpuscular Volume 91 fL (79-100) Mean Corpuscular Hemoglobin 30 pg (25-35) Mean Corpuscular Hemoglobin Concent 33 g/dL (31-37) Red Cell Distribution Width 14.8 % (11.5-14.5) H Platelet Count 305 x10^3/uL (140-400) Neutrophils (%) (Auto) 52 % (31-73) Lymphocytes (%) (Auto) 36 % (24-48) Monocytes (%) (Auto) 10 % (0-9) H Eosinophils (%) (Auto) 2 % (0-3) Basophils (%) (Auto) 1 % (0-3) Neutrophils # (Auto) 3.4 x10^3uL (1.8-7.7) Lymphocytes # (Auto) 2.4 x10^3/uL (1.0-4.8) Monocytes # (Auto) 0.7 x10^3/uL (0.0-1.1) Eosinophils # (Auto) 0.1 x10^3/uL (0.0-0.7) Basophils # (Auto) 0.0 x10^3/uL (0.0-0.2) Sodium Level 145 mmol/L (136-145) Potassium Level 3.7 mmol/L (3.5-5.1) Chloride Level 106 mmol/L (98-107) Carbon Dioxide Level 28 mmol/L (21-32) Anion Gap 11 (6-14) Blood Urea Nitrogen 17 mg/dL (8-26) Creatinine 1.2 mg/dL (0.7-1.3) Estimated GFR (Cockcroft-Gault) 59.5 BUN/Creatinine Ratio 14 (6-20) Glucose Level 85 mg/dL (70-99) Calcium Level 9.3 mg/dL (8.5-10.1) Total Bilirubin 0.5 mg/dL (0.2-1.0) Aspartate Amino Transferase (AST) 22 U/L (15-37) Alanine Aminotransferase (ALT) 20 U/L (16-63) Alkaline Phosphatase 77 U/L (46-116) Total Protein 7.1 g/dL (6.4-8.2) Albumin 3.9 g/dL (3.4-5.0) Albumin/Globulin Ratio 1.2 (1.0-1.7) Valproic Acid Level 58 mcg/mL (50-100) Valproic Acid Last Dose Date 12/08/20 Valproic Acid Last Dose Time 2100 Glucose (Fingerstick) 76 mg/dL (70-99) 112 mg/dL (70-99) H Current Medications: Meds: Laboratory Tests Test 12/09/20 06:44 12/09/20 08:06 12/09/20 19:11 White Blood Count 6.6 x10^3/uL Red Blood Count 4.71 x10^6/uL Hemoglobin 14.2 g/dL Hematocrit 42.8 % Mean Corpuscular Volume 91 fL Mean Corpuscular Hemoglobin 30 pg Mean Corpuscular Hemoglobin Concent 33 g/dL Red Cell Distribution Width 14.8 % Platelet Count 305 x10^3/uL Neutrophils (%) (Auto) 52 % Lymphocytes (%) (Auto) 36 % Monocytes (%) (Auto) 10 % Eosinophils (%) (Auto) 2 % Basophils (%) (Auto) 1 % Neutrophils # (Auto) 3.4 x10^3uL Lymphocytes # (Auto) 2.4 x10^3/uL Monocytes # (Auto) 0.7 x10^3/uL Eosinophils # (Auto) 0.1 x10^3/uL Basophils # (Auto) 0.0 x10^3/uL Sodium Level 145 mmol/L Potassium Level 3.7 mmol/L Chloride Level 106 mmol/L Carbon Dioxide Level 28 mmol/L Anion Gap 11 Blood Urea Nitrogen 17 mg/dL Creatinine 1.2 mg/dL Estimated GFR (Cockcroft-Gault) 59.5 BUN/Creatinine Ratio 14 Glucose Level 85 mg/dL Calcium Level 9.3 mg/dL Total Bilirubin 0.5 mg/dL Aspartate Amino Transf (AST/SGOT) 22 U/L Alanine Aminotransferase (ALT/SGPT) 20 U/L Alkaline Phosphatase 77 U/L Total Protein 7.1 g/dL Albumin 3.9 g/dL Albumin/Globulin Ratio 1.2 Valproic Acid (Depakene) Level 58 mcg/mL Valproic Acid Last Dose Date 12/08/20 Valproic Acid Last Dose Time 2100 Glucose (Fingerstick) 76 mg/dL 112 mg/dL Current Medications Medications (Trade) Dose Ordered Sig/Vincenzo Route PRN Reason Start Time Stop Time Status Last Admin Dose Admin Acetaminophen (Tylenol) 650 mg PRN Q6HRS PRN PO MILD PAIN / TEMP > 100.3'F 11/28/20 16:45 Multi-Ingredient Ointment (Analgesic [place]) 1 esther PRN QID PRN TP MUSCLE PAIN 11/28/20 16:45 Al Hydroxide/Mg Hydroxide (Mylanta Plus Xs) 15 ml PRN AFTMEALHC PRN PO DYSPEPSIA 11/28/20 16:45 Magnesium Hydroxide (Milk Of Magnesia) 2,400 mg PRN QHS PRN PO 1ST CHOICE CONSTIPATION 11/28/20 16:45 Acetaminophen (Tylenol) 500 mg Q4HRS PRN PO PAIN/FEVER 11/28/20 18:00 12/01/20 09:05 Baclofen (Lioresal) 10 mg QID PO 11/28/20 21:00 12/09/20 20:07 Bisacodyl (Dulcolax Supp) 10 mg PRN DAILY PRN RC 2ND CHOICE CONSTIPATION 11/28/20 18:00 Carbidopa/Levodopa (Sinemet 25/100) 1 tab BID PO 11/28/20 21:00 12/01/20 18:16 DC 12/01/20 09:06 Vitamin D (Vitamin D3) 1,000 unit DAILY PO 11/29/20 09:00 12/09/20 08:04 Clopidogrel Bisulfate (Plavix) 75 mg DAILY PO 11/29/20 09:00 12/09/20 08:04 Donepezil HCl (Aricept) 10 mg QHS PO 11/28/20 21:00 12/09/20 20:09 Fenofibrate (Tricor) 145 mg DAILY PO 11/29/20 09:00 12/09/20 08:04 Furosemide (Lasix) 20 mg DAILY PO 11/29/20 09:00 12/09/20 08:07 Lorazepam (Ativan) 1 mg BID PO 11/28/20 21:00 11/30/20 18:02 DC 11/30/20 08:25 Al Hydroxide/Mg Hydroxide (Mylanta Plus Xs) 30 ml PRN Q2HRS PRN PO UPSET STOMACH 11/28/20 18:00 Metoprolol Succinate (Toprol Xl) 25 mg DAILY PO 11/29/20 09:00 12/09/20 08:06 Nitroglycerin (Nitrostat) 0.4 mg PRN Q5MIN PRN SL CHEST PAIN 11/28/20 18:00 Quetiapine Fumarate (SEROquel) 50 mg DAILY PO 11/29/20 09:00 12/09/20 08:04 Ropinirole HCl (Requip) 0.5 mg HS PO 11/28/20 21:00 12/09/20 20:04 Senna/Docusate Sodium (Senna Plus) 1 tab BID PO 11/28/20 21:00 12/09/20 20:08 Temazepam (Restoril) 7.5 mg QHS PO 11/28/20 21:00 11/28/20 20:32 DC Triamcinolone Acetonide (Kenalog) 1 esther PRN BID PRN TP BILAT ANKLE RASH 11/28/20 18:00 Cyanocobalamin (Vitamin B-12) 1,000 mcg DAILY PO 11/29/20 09:00 12/09/20 08:04 Zinc Acetate/ Diphenhydramine (Benadryl Topical) 1 esther PRN TID PRN TP BILAT ANKLE RASH ITCHING 11/28/20 18:45 Citalopram Hydrobromide (CeleXA) 10 mg DAILY PO 11/29/20 09:00 12/02/20 17:44 DC 12/02/20 08:23 Famotidine (Pepcid) 40 mg HS PO 11/28/20 21:00 12/09/20 20:06 Lactobacillus Rhamnosus (Culturelle) 2 cap BID PO 11/28/20 21:00 12/09/20 20:06 Levetiracetam (Keppra) 1,000 mg BID PO 11/28/20 21:00 12/09/20 20:08 Melatonin (Melatonin) 6 mg QHS PO 11/28/20 21:00 12/09/20 20:05 Niacin (Slo-Niacin) 250 mg QHS PO 11/28/20 21:00 12/09/20 20:07 Ondansetron HCl (Zofran Odt) 4 mg PRN Q4HRS PRN PO NAUSEA/VOMITING 11/28/20 18:45 Polyethylene Glycol (miraLAX) 17 gm DAILY PO 11/29/20 09:00 12/09/20 08:07 Non-Formulary Medication (Rosuvastatin Calcium (Crestor)) 40 mg HS PO 11/28/20 21:00 UNV Temazepam (Restoril) 7.5 mg QHS PO 11/28/20 21:00 11/30/20 18:01 DC 11/29/20 21:13 Lorazepam (Ativan) 1 mg QHS PO 11/30/20 21:00 12/09/20 20:05 Lorazepam (Ativan) 0.5 mg DAILY PO 12/01/20 09:00 12/09/20 08:04 Mirtazapine (Remeron) 7.5 mg QHS PO 11/30/20 21:00 12/09/20 20:09 Divalproex Sodium (Depakote Sprinkles) 500 mg HS PO 12/01/20 21:00 12/06/20 17:56 DC 12/05/20 20:00 Carbidopa/Levodopa (Sinemet 25/100) 1 tab TID PO 12/01/20 21:00 12/09/20 20:08 Bupropion HCl (Wellbutrin Xl) 150 mg DAILY PO 12/03/20 09:00 12/06/20 17:56 DC 12/06/20 09:53 Olanzapine (ZyPREXA ZYDIS) 2.5 mg PRN Q2HRS PRN PO ANXIETY / AGITATION 12/03/20 19:45 12/07/20 06:28 Bupropion HCl (Wellbutrin Xl) 300 mg DAILY PO 12/07/20 09:00 12/09/20 17:57 DC 12/09/20 08:04 Divalproex Sodium (Depakote Sprinkles) 750 mg HS PO 12/06/20 21:00 12/09/20 20:09 Sertraline HCl (Zoloft) 50 mg DAILY PO 12/10/20 09:00 I have reviewed the current psychotropics carefully including drug interactions. Risk benefit ratio favors no change other than as noted in my dictated progress note. 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
[2020-12-10 05:30] VITALS: BP 121/74
[2020-12-10] MEDS: CHOLECALCIFEROL (VITAMIN D3) 1,000 UNIT TABLET PO SCH (08:30)
[2020-12-10] MEDS: QUEtiapine 50 MG TABLET. PO SCH (08:30)
[2020-12-10] MEDS: FUROSEMIDE 20 MG TABLET PO SCH (08:31)
[2020-12-10] MEDS: SENNOSIDES/DOCUSATE 8.6/50MG TABLET. PO SCH ×2 (08:31→20:11)
[2020-12-10] MEDS: CARBIDOPA/LEVODOPA 25/100MG TABLET PO SCH ×3 (08:31→20:09)
[2020-12-10] MEDS: levETIRAcetam 500 MG TABLET PO SCH ×2 (08:31→20:12)
[2020-12-10] MEDS: LORazepam 0.5 MG TABLET PO SCH (08:31)
[2020-12-10] MEDS: METOPROLOL SUCC 24HR ER 25 MG TAB.ER.24H. PO SCH (08:31)
[2020-12-10] MEDS: BACLOFEN 10 MG TABLET PO SCH ×4 (08:31→20:11)
[2020-12-10] MEDS: SERTRALINE 50 MG TABLET. PO SCH (08:31)
[2020-12-10] MEDS: CLOPIDOGREL BISULFATE 75 MG TABLET PO SCH (08:31)
[2020-12-10] MEDS: LACTOBACILLUS RHAMNOSUS GG 1 CAPSULE. PO SCH ×2 (08:31→20:10)
[2020-12-10] MEDS: FENOFIBRATE NANOCRYSTALLIZED 145 MG TABLET PO SCH (08:31)
[2020-12-10] MEDS: POLYETHYLENE GLYCOL 3350 17 GM PACKET. PO SCH (08:32)
[2020-12-10] MEDS: CYANOCOBALAMIN (VITAMIN B-12) 1,000 MCG TABLET. PO SCH (08:32)
[2020-12-10 16:02] VITALS: BP 122/81
[2020-12-10] MEDS: NON FORMULARY ITEM (Rosuvastatin Calcium (Crestor) 40 MG) PO SCH (19:40)
[2020-12-10] MEDS: DONEPEZIL HCL 10 MG TABLET PO SCH (20:08)
[2020-12-10] MEDS: LORazepam 1 MG TABLET PO SCH (20:09)
[2020-12-10] MEDS: NIACIN ER 500 MG TABLET.ER PO SCH (20:09)
[2020-12-10] MEDS: MELATONIN 3 MG TABLET PO SCH (20:10)
[2020-12-10] MEDS: FAMOTIDINE 20 MG TABLET PO SCH (20:11)
[2020-12-10] MEDS: rOPINIRole 0.5 MG TABLET. PO SCH (20:12)
[2020-12-10] MEDS: MIRTAZAPINE 7.5 MG TABLET. PO SCH (20:13)
[2020-12-10] MEDS: DIVALPROEX 125 MG CAP.SPRINK PO SCH (20:13)
--- NOTE | 2020-12-10 22:11 | PDOC ---
Exam Note: Carl Note: Please also refer to the separate dictated note~for this date of service dictated separately.~Patient seen individually. Discussed the patient with Nursing staff reviewed the chart.~Reviewed interim history and current functioning. Reviewed vital signs,~Labs/ Radiology~and current medications noted below. Continue current treatment with the changes noted in the dictated addendum note Assessment: Vital Signs/I&O: Vital Signs Date Time Temp Pulse Resp B/P (MAP) Pulse Ox O2 Delivery O2 Flow Rate FiO2 12/10/20 16:02 97.4 65 18 122/81 (95) 99 12/10/20 05:30 Room Air I & O 12/09/20 12/09/20 12/10/20 15:00 23:00 07:00 Intake Total 840 ml 240 ml Balance 840 ml 240 ml Labs: Laboratory Tests Test 12/10/20 08:00 12/10/20 19:18 Glucose (Fingerstick) 117 mg/dL (70-99) H 157 mg/dL (70-99) H Current Medications: Meds: Laboratory Tests Test 12/10/20 08:00 12/10/20 19:18 Glucose (Fingerstick) 117 mg/dL 157 mg/dL Current Medications Medications (Trade) Dose Ordered Sig/Vincenzo Route PRN Reason Start Time Stop Time Status Last Admin Dose Admin Acetaminophen (Tylenol) 650 mg PRN Q6HRS PRN PO MILD PAIN / TEMP > 100.3'F 11/28/20 16:45 Multi-Ingredient Ointment (Analgesic [place]) 1 esther PRN QID PRN TP MUSCLE PAIN 11/28/20 16:45 Al Hydroxide/Mg Hydroxide (Mylanta Plus Xs) 15 ml PRN AFTMEALHC PRN PO DYSPEPSIA 11/28/20 16:45 Magnesium Hydroxide (Milk Of Magnesia) 2,400 mg PRN QHS PRN PO 1ST CHOICE CONSTIPATION 11/28/20 16:45 Acetaminophen (Tylenol) 500 mg Q4HRS PRN PO PAIN/FEVER 11/28/20 18:00 12/01/20 09:05 Baclofen (Lioresal) 10 mg QID PO 11/28/20 21:00 12/10/20 20:11 Bisacodyl (Dulcolax Supp) 10 mg PRN DAILY PRN RC 2ND CHOICE CONSTIPATION 11/28/20 18:00 Carbidopa/Levodopa (Sinemet 25/100) 1 tab BID PO 11/28/20 21:00 12/01/20 18:16 DC 12/01/20 09:06 Vitamin D (Vitamin D3) 1,000 unit DAILY PO 11/29/20 09:00 12/10/20 08:30 Clopidogrel Bisulfate (Plavix) 75 mg DAILY PO 11/29/20 09:00 12/10/20 08:31 Donepezil HCl (Aricept) 10 mg QHS PO 11/28/20 21:00 12/10/20 20:08 Fenofibrate (Tricor) 145 mg DAILY PO 11/29/20 09:00 12/10/20 08:31 Furosemide (Lasix) 20 mg DAILY PO 11/29/20 09:00 12/10/20 08:31 Lorazepam (Ativan) 1 mg BID PO 11/28/20 21:00 11/30/20 18:02 DC 11/30/20 08:25 Al Hydroxide/Mg Hydroxide (Mylanta Plus Xs) 30 ml PRN Q2HRS PRN PO UPSET STOMACH 11/28/20 18:00 Metoprolol Succinate (Toprol Xl) 25 mg DAILY PO 11/29/20 09:00 12/10/20 08:31 Nitroglycerin (Nitrostat) 0.4 mg PRN Q5MIN PRN SL CHEST PAIN 11/28/20 18:00 Quetiapine Fumarate (SEROquel) 50 mg DAILY PO 11/29/20 09:00 12/10/20 08:30 Ropinirole HCl (Requip) 0.5 mg HS PO 11/28/20 21:00 12/10/20 20:12 Senna/Docusate Sodium (Senna Plus) 1 tab BID PO 11/28/20 21:00 12/10/20 20:11 Temazepam (Restoril) 7.5 mg QHS PO 11/28/20 21:00 11/28/20 20:32 DC Triamcinolone Acetonide (Kenalog) 1 esther PRN BID PRN TP BILAT ANKLE RASH 11/28/20 18:00 Cyanocobalamin (Vitamin B-12) 1,000 mcg DAILY PO 11/29/20 09:00 12/10/20 08:32 Zinc Acetate/ Diphenhydramine (Benadryl Topical) 1 esther PRN TID PRN TP BILAT ANKLE RASH ITCHING 11/28/20 18:45 Citalopram Hydrobromide (CeleXA) 10 mg DAILY PO 11/29/20 09:00 12/02/20 17:44 DC 12/02/20 08:23 Famotidine (Pepcid) 40 mg HS PO 11/28/20 21:00 12/10/20 20:11 Lactobacillus Rhamnosus (Culturelle) 2 cap BID PO 11/28/20 21:00 12/10/20 20:10 Levetiracetam (Keppra) 1,000 mg BID PO 11/28/20 21:00 12/10/20 20:12 Melatonin (Melatonin) 6 mg QHS PO 11/28/20 21:00 12/10/20 20:10 Niacin (Slo-Niacin) 250 mg QHS PO 11/28/20 21:00 12/10/20 20:09 Ondansetron HCl (Zofran Odt) 4 mg PRN Q4HRS PRN PO NAUSEA/VOMITING 11/28/20 18:45 Polyethylene Glycol (miraLAX) 17 gm DAILY PO 11/29/20 09:00 12/10/20 08:32 Non-Formulary Medication (Rosuvastatin Calcium (Crestor)) 40 mg HS PO 11/28/20 21:00 UNV Temazepam (Restoril) 7.5 mg QHS PO 11/28/20 21:00 11/30/20 18:01 DC 11/29/20 21:13 Lorazepam (Ativan) 1 mg QHS PO 11/30/20 21:00 12/10/20 20:09 Lorazepam (Ativan) 0.5 mg DAILY PO 12/01/20 09:00 12/10/20 08:31 Mirtazapine (Remeron) 7.5 mg QHS PO 11/30/20 21:00 12/10/20 20:13 Divalproex Sodium (Depakote Sprinkles) 500 mg HS PO 12/01/20 21:00 12/06/20 17:56 DC 12/05/20 20:00 Carbidopa/Levodopa (Sinemet 25/100) 1 tab TID PO 12/01/20 21:00 12/10/20 20:09 Bupropion HCl (Wellbutrin Xl) 150 mg DAILY PO 12/03/20 09:00 12/06/20 17:56 DC 12/06/20 09:53 Olanzapine (ZyPREXA ZYDIS) 2.5 mg PRN Q2HRS PRN PO ANXIETY / AGITATION 12/03/20 19:45 12/07/20 06:28 Bupropion HCl (Wellbutrin Xl) 300 mg DAILY PO 12/07/20 09:00 12/09/20 17:57 DC 12/09/20 08:04 Divalproex Sodium (Depakote Sprinkles) 750 mg HS PO 12/06/20 21:00 12/10/20 20:13 Sertraline HCl (Zoloft) 50 mg DAILY PO 12/10/20 09:00 12/10/20 08:31 Current Medications Medications (Trade) Dose Ordered Sig/Vincenzo Route PRN Reason Start Time Stop Time Status Last Admin Dose Admin Sertraline HCl (Zoloft) 50 mg DAILY PO 12/10/20 09:00 12/10/20 08:31 I have reviewed the current psychotropics carefully including drug interactions. Risk benefit ratio favors no change other than as noted in my dictated progress note. 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
[2020-12-11 05:44] VITALS: BP 96/58
[2020-12-11] MEDS: POLYETHYLENE GLYCOL 3350 17 GM PACKET. PO SCH (08:06)
[2020-12-11] MEDS: QUEtiapine 50 MG TABLET. PO SCH (08:06)
[2020-12-11] MEDS: CYANOCOBALAMIN (VITAMIN B-12) 1,000 MCG TABLET. PO SCH (08:06)
[2020-12-11] MEDS: LORazepam 0.5 MG TABLET PO SCH (08:06)
[2020-12-11] MEDS: CHOLECALCIFEROL (VITAMIN D3) 1,000 UNIT TABLET PO SCH (08:07)
[2020-12-11] MEDS: FENOFIBRATE NANOCRYSTALLIZED 145 MG TABLET PO SCH (08:07)
[2020-12-11] MEDS: FUROSEMIDE 20 MG TABLET PO SCH (08:07)
[2020-12-11] MEDS: CARBIDOPA/LEVODOPA 25/100MG TABLET PO SCH ×3 (08:07→19:59)
[2020-12-11] MEDS: LACTOBACILLUS RHAMNOSUS GG 1 CAPSULE. PO SCH ×2 (08:07→19:59)
[2020-12-11] MEDS: SENNOSIDES/DOCUSATE 8.6/50MG TABLET. PO SCH ×2 (08:07→19:59)
[2020-12-11] MEDS: SERTRALINE 50 MG TABLET. PO SCH (08:07)
[2020-12-11] MEDS: levETIRAcetam 500 MG TABLET PO SCH ×2 (08:08→19:58)
[2020-12-11] MEDS: CLOPIDOGREL BISULFATE 75 MG TABLET PO SCH (08:09)
[2020-12-11] MEDS: BACLOFEN 10 MG TABLET PO SCH ×4 (08:09→19:59)
[2020-12-11] MEDS: METOPROLOL SUCC 24HR ER 25 MG TAB.ER.24H. PO SCH (08:16)
--- NOTE | 2020-12-11 08:20 | PDOC ---
Exam Note: Carl Note: This note is a late entry for 12/09/2020 covers elements not covered in my initial note. Subjective: The patient was seen individually in the evening of 12/09/2020 with Estrella WISDOM, discussed and reviewed the chart. He slept 5-1/4 hours previous night. The patient did well during the day till dinner time and was glaring at staff. He smacked the hand of the nursing staff at dinner time trying to throw what was in her hand off to the ground, somewhat more irritable and we will change the Wellbutrin to Zoloft 50 mg a day to help with this. Valproic acid level is 58. Review of Systems: Ambulation impaired in wheelchair, has difficulty with movements consequent to his parkinsonian facial expression and tremors. No CV, , pulmonary, eye system symptoms on review. Mental Status Exam: The patient is oriented to himself. Insight and judgment, recent and remote memory, attention and concentration, fund of knowledge is poor consistent with his diagnoses. Laboratory Data: Reviewed. 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 Anxiety disorder unspecified. Impulse control disorder unspecified. Plan: No change from initial note and as noted above. Assessment: Vital Signs/I&O: Vital Signs Date Time Temp Pulse Resp B/P (MAP) Pulse Ox O2 Delivery O2 Flow Rate FiO2 12/11/20 08:16 60 96/58 12/11/20 05:44 97.2 14 96 Room Air I & O 12/10/20 12/10/20 12/11/20 15:00 23:00 07:00 Intake Total 840 ml 240 ml Balance 840 ml 240 ml Labs: Laboratory Tests Test 12/10/20 19:18 12/11/20 07:19 Glucose (Fingerstick) 157 mg/dL (70-99) H 88 mg/dL (70-99) Current Medications: Meds: Laboratory Tests Test 12/10/20 19:18 12/11/20 07:19 Glucose (Fingerstick) 157 mg/dL 88 mg/dL Current Medications Medications (Trade) Dose Ordered Sig/Vincenzo Route PRN Reason Start Time Stop Time Status Last Admin Dose Admin Acetaminophen (Tylenol) 650 mg PRN Q6HRS PRN PO MILD PAIN / TEMP > 100.3'F 11/28/20 16:45 Multi-Ingredient Ointment (Analgesic [place]) 1 esther PRN QID PRN TP MUSCLE PAIN 11/28/20 16:45 Al Hydroxide/Mg Hydroxide (Mylanta Plus Xs) 15 ml PRN AFTMEALHC PRN PO DYSPEPSIA 11/28/20 16:45 Magnesium Hydroxide (Milk Of Magnesia) 2,400 mg PRN QHS PRN PO 1ST CHOICE CONSTIPATION 11/28/20 16:45 Acetaminophen (Tylenol) 500 mg Q4HRS PRN PO PAIN/FEVER 11/28/20 18:00 12/01/20 09:05 Baclofen (Lioresal) 10 mg QID PO 11/28/20 21:00 12/11/20 08:09 Bisacodyl (Dulcolax Supp) 10 mg PRN DAILY PRN RC 2ND CHOICE CONSTIPATION 11/28/20 18:00 Carbidopa/Levodopa (Sinemet 25/100) 1 tab BID PO 11/28/20 21:00 12/01/20 18:16 DC 12/01/20 09:06 Vitamin D (Vitamin D3) 1,000 unit DAILY PO 11/29/20 09:00 12/11/20 08:07 Clopidogrel Bisulfate (Plavix) 75 mg DAILY PO 11/29/20 09:00 12/11/20 08:09 Donepezil HCl (Aricept) 10 mg QHS PO 11/28/20 21:00 12/10/20 20:08 Fenofibrate (Tricor) 145 mg DAILY PO 11/29/20 09:00 12/11/20 08:07 Furosemide (Lasix) 20 mg DAILY PO 11/29/20 09:00 12/11/20 08:07 Lorazepam (Ativan) 1 mg BID PO 11/28/20 21:00 11/30/20 18:02 DC 11/30/20 08:25 Al Hydroxide/Mg Hydroxide (Mylanta Plus Xs) 30 ml PRN Q2HRS PRN PO UPSET STOMACH 11/28/20 18:00 Metoprolol Succinate (Toprol Xl) 25 mg DAILY PO 11/29/20 09:00 12/10/20 08:31 Nitroglycerin (Nitrostat) 0.4 mg PRN Q5MIN PRN SL CHEST PAIN 11/28/20 18:00 Quetiapine Fumarate (SEROquel) 50 mg DAILY PO 11/29/20 09:00 12/11/20 08:06 Ropinirole HCl (Requip) 0.5 mg HS PO 11/28/20 21:00 12/10/20 20:12 Senna/Docusate Sodium (Senna Plus) 1 tab BID PO 11/28/20 21:00 12/11/20 08:07 Temazepam (Restoril) 7.5 mg QHS PO 11/28/20 21:00 11/28/20 20:32 DC Triamcinolone Acetonide (Kenalog) 1 esther PRN BID PRN TP BILAT ANKLE RASH 11/28/20 18:00 Cyanocobalamin (Vitamin B-12) 1,000 mcg DAILY PO 11/29/20 09:00 12/11/20 08:06 Zinc Acetate/ Diphenhydramine (Benadryl Topical) 1 esther PRN TID PRN TP BILAT ANKLE RASH ITCHING 11/28/20 18:45 Citalopram Hydrobromide (CeleXA) 10 mg DAILY PO 11/29/20 09:00 12/02/20 17:44 DC 12/02/20 08:23 Famotidine (Pepcid) 40 mg HS PO 11/28/20 21:00 12/10/20 20:11 Lactobacillus Rhamnosus (Culturelle) 2 cap BID PO 11/28/20 21:00 12/11/20 08:07 Levetiracetam (Keppra) 1,000 mg BID PO 11/28/20 21:00 12/11/20 08:08 Melatonin (Melatonin) 6 mg QHS PO 11/28/20 21:00 12/10/20 20:10 Niacin (Slo-Niacin) 250 mg QHS PO 11/28/20 21:00 12/10/20 20:09 Ondansetron HCl (Zofran Odt) 4 mg PRN Q4HRS PRN PO NAUSEA/VOMITING 11/28/20 18:45 Polyethylene Glycol (miraLAX) 17 gm DAILY PO 11/29/20 09:00 12/11/20 08:06 Non-Formulary Medication (Rosuvastatin Calcium (Crestor)) 40 mg HS PO 11/28/20 21:00 UNV Temazepam (Restoril) 7.5 mg QHS PO 11/28/20 21:00 11/30/20 18:01 DC 11/29/20 21:13 Lorazepam (Ativan) 1 mg QHS PO 11/30/20 21:00 12/10/20 20:09 Lorazepam (Ativan) 0.5 mg DAILY PO 12/01/20 09:00 12/11/20 08:06 Mirtazapine (Remeron) 7.5 mg QHS PO 11/30/20 21:00 12/10/20 20:13 Divalproex Sodium (Depakote Sprinkles) 500 mg HS PO 12/01/20 21:00 12/06/20 17:56 DC 12/05/20 20:00 Carbidopa/Levodopa (Sinemet 25/100) 1 tab TID PO 12/01/20 21:00 12/11/20 08:07 Bupropion HCl (Wellbutrin Xl) 150 mg DAILY PO 12/03/20 09:00 12/06/20 17:56 DC 12/06/20 09:53 Olanzapine (ZyPREXA ZYDIS) 2.5 mg PRN Q2HRS PRN PO ANXIETY / AGITATION 12/03/20 19:45 12/07/20 06:28 Bupropion HCl (Wellbutrin Xl) 300 mg DAILY PO 12/07/20 09:00 12/09/20 17:57 DC 12/09/20 08:04 Divalproex Sodium (Depakote Sprinkles) 750 mg HS PO 12/06/20 21:00 12/10/20 20:13 Sertraline HCl (Zoloft) 50 mg DAILY PO 12/10/20 09:00 12/11/20 08:07 Current Medications Medications (Trade) Dose Ordered Sig/Vincenzo Route PRN Reason Start Time Stop Time Status Last Admin Dose Admin Sertraline HCl (Zoloft) 50 mg DAILY PO 12/10/20 09:00 12/11/20 08:07 I have reviewed the current psychotropics carefully including drug interactions. Risk benefit ratio favors no change other than as noted in my dictated progress note. 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
--- NOTE | 2020-12-11 09:12 | PDOC ---
Exam Note: Carl Note: This note is a late entry for 12/10/2020 covers elements not covered in my initial note. Subjective: The patient was seen individually in the evening of 12/10/2020 with Alfreda WISDOM, discussed and reviewed the chart. He slept 8-1/4 hours previous night. The patient has been less agitated, seems calmer, tremors are better. Review of Systems: Ambulation impaired in wheelchair. No CV, , pulmonary, eye system symptoms on review. He has parkinsonian facial expression but tremors are better. Mental Status Exam: The patient is oriented to himself. Insight and judgment, recent and remote memory, attention and concentration, fund of knowledge is poor consistent with his diagnoses. Laboratory Data: Reviewed. 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 Anxiety disorder unspecified. Impulse control disorder unspecified. Plan: No change from initial note and as noted above. Assessment: Vital Signs/I&O: Vital Signs Date Time Temp Pulse Resp B/P (MAP) Pulse Ox O2 Delivery O2 Flow Rate FiO2 12/11/20 08:16 60 96/58 12/11/20 05:44 97.2 14 96 Room Air I & O 12/10/20 12/10/20 12/11/20 14:59 22:59 06:59 Intake Total 840 ml 240 ml Balance 840 ml 240 ml Labs: Laboratory Tests Test 12/10/20 19:18 12/11/20 07:19 Glucose (Fingerstick) 157 mg/dL (70-99) H 88 mg/dL (70-99) Current Medications: Meds: Laboratory Tests Test 12/10/20 19:18 12/11/20 07:19 Glucose (Fingerstick) 157 mg/dL 88 mg/dL Current Medications Medications (Trade) Dose Ordered Sig/Vincenzo Route PRN Reason Start Time Stop Time Status Last Admin Dose Admin Acetaminophen (Tylenol) 650 mg PRN Q6HRS PRN PO MILD PAIN / TEMP > 100.3'F 11/28/20 16:45 Multi-Ingredient Ointment (Analgesic [place]) 1 esther PRN QID PRN TP MUSCLE PAIN 11/28/20 16:45 Al Hydroxide/Mg Hydroxide (Mylanta Plus Xs) 15 ml PRN AFTMEALHC PRN PO DYSPEPSIA 11/28/20 16:45 Magnesium Hydroxide (Milk Of Magnesia) 2,400 mg PRN QHS PRN PO 1ST CHOICE CONSTIPATION 11/28/20 16:45 Acetaminophen (Tylenol) 500 mg Q4HRS PRN PO PAIN/FEVER 11/28/20 18:00 12/01/20 09:05 Baclofen (Lioresal) 10 mg QID PO 11/28/20 21:00 12/11/20 08:09 Bisacodyl (Dulcolax Supp) 10 mg PRN DAILY PRN RC 2ND CHOICE CONSTIPATION 11/28/20 18:00 Carbidopa/Levodopa (Sinemet 25/100) 1 tab BID PO 11/28/20 21:00 12/01/20 18:16 DC 12/01/20 09:06 Vitamin D (Vitamin D3) 1,000 unit DAILY PO 11/29/20 09:00 12/11/20 08:07 Clopidogrel Bisulfate (Plavix) 75 mg DAILY PO 11/29/20 09:00 12/11/20 08:09 Donepezil HCl (Aricept) 10 mg QHS PO 11/28/20 21:00 12/10/20 20:08 Fenofibrate (Tricor) 145 mg DAILY PO 11/29/20 09:00 12/11/20 08:07 Furosemide (Lasix) 20 mg DAILY PO 11/29/20 09:00 12/11/20 08:07 Lorazepam (Ativan) 1 mg BID PO 11/28/20 21:00 11/30/20 18:02 DC 11/30/20 08:25 Al Hydroxide/Mg Hydroxide (Mylanta Plus Xs) 30 ml PRN Q2HRS PRN PO UPSET STOMACH 11/28/20 18:00 Metoprolol Succinate (Toprol Xl) 25 mg DAILY PO 11/29/20 09:00 12/10/20 08:31 Nitroglycerin (Nitrostat) 0.4 mg PRN Q5MIN PRN SL CHEST PAIN 11/28/20 18:00 Quetiapine Fumarate (SEROquel) 50 mg DAILY PO 11/29/20 09:00 12/11/20 08:06 Ropinirole HCl (Requip) 0.5 mg HS PO 11/28/20 21:00 12/10/20 20:12 Senna/Docusate Sodium (Senna Plus) 1 tab BID PO 11/28/20 21:00 12/11/20 08:07 Temazepam (Restoril) 7.5 mg QHS PO 11/28/20 21:00 11/28/20 20:32 DC Triamcinolone Acetonide (Kenalog) 1 esther PRN BID PRN TP BILAT ANKLE RASH 11/28/20 18:00 Cyanocobalamin (Vitamin B-12) 1,000 mcg DAILY PO 11/29/20 09:00 12/11/20 08:06 Zinc Acetate/ Diphenhydramine (Benadryl Topical) 1 esther PRN TID PRN TP BILAT ANKLE RASH ITCHING 11/28/20 18:45 Citalopram Hydrobromide (CeleXA) 10 mg DAILY PO 11/29/20 09:00 12/02/20 17:44 DC 12/02/20 08:23 Famotidine (Pepcid) 40 mg HS PO 11/28/20 21:00 12/10/20 20:11 Lactobacillus Rhamnosus (Culturelle) 2 cap BID PO 11/28/20 21:00 12/11/20 08:07 Levetiracetam (Keppra) 1,000 mg BID PO 11/28/20 21:00 12/11/20 08:08 Melatonin (Melatonin) 6 mg QHS PO 11/28/20 21:00 12/10/20 20:10 Niacin (Slo-Niacin) 250 mg QHS PO 11/28/20 21:00 12/10/20 20:09 Ondansetron HCl (Zofran Odt) 4 mg PRN Q4HRS PRN PO NAUSEA/VOMITING 11/28/20 18:45 Polyethylene Glycol (miraLAX) 17 gm DAILY PO 11/29/20 09:00 12/11/20 08:06 Non-Formulary Medication (Rosuvastatin Calcium (Crestor)) 40 mg HS PO 11/28/20 21:00 UNV Temazepam (Restoril) 7.5 mg QHS PO 11/28/20 21:00 11/30/20 18:01 DC 11/29/20 21:13 Lorazepam (Ativan) 1 mg QHS PO 11/30/20 21:00 12/10/20 20:09 Lorazepam (Ativan) 0.5 mg DAILY PO 12/01/20 09:00 12/11/20 08:06 Mirtazapine (Remeron) 7.5 mg QHS PO 11/30/20 21:00 12/10/20 20:13 Divalproex Sodium (Depakote Sprinkles) 500 mg HS PO 12/01/20 21:00 12/06/20 17:56 DC 12/05/20 20:00 Carbidopa/Levodopa (Sinemet 25/100) 1 tab TID PO 12/01/20 21:00 12/11/20 08:07 Bupropion HCl (Wellbutrin Xl) 150 mg DAILY PO 12/03/20 09:00 12/06/20 17:56 DC 12/06/20 09:53 Olanzapine (ZyPREXA ZYDIS) 2.5 mg PRN Q2HRS PRN PO ANXIETY / AGITATION 12/03/20 19:45 12/07/20 06:28 Bupropion HCl (Wellbutrin Xl) 300 mg DAILY PO 12/07/20 09:00 12/09/20 17:57 DC 12/09/20 08:04 Divalproex Sodium (Depakote Sprinkles) 750 mg HS PO 12/06/20 21:00 12/10/20 20:13 Sertraline HCl (Zoloft) 50 mg DAILY PO 12/10/20 09:00 12/11/20 08:07 I have reviewed the current psychotropics carefully including drug interactions. Risk benefit ratio favors no change other than as noted in my dictated progress note. 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
[2020-12-11 15:26] VITALS: BP 142/65
[2020-12-11] MEDS: NON FORMULARY ITEM (Rosuvastatin Calcium (Crestor) 40 MG) PO SCH (19:26)
[2020-12-11] MEDS: DIVALPROEX 125 MG CAP.SPRINK PO SCH (19:58)
[2020-12-11] MEDS: MIRTAZAPINE 7.5 MG TABLET. PO SCH (19:58)
[2020-12-11] MEDS: rOPINIRole 0.5 MG TABLET. PO SCH (19:58)
[2020-12-11] MEDS: MELATONIN 3 MG TABLET PO SCH (19:58)
[2020-12-11] MEDS: FAMOTIDINE 20 MG TABLET PO SCH (19:59)
[2020-12-11] MEDS: NIACIN ER 500 MG TABLET.ER PO SCH (19:59)
[2020-12-11] MEDS: LORazepam 1 MG TABLET PO SCH (19:59)
[2020-12-11] MEDS: DONEPEZIL HCL 10 MG TABLET PO SCH (21:00)
--- NOTE | 2020-12-11 22:11 | PDOC ---
Exam Note: Carl Note: Please also refer to the separate dictated note~for this date of service dictated separately.~Patient seen individually. Discussed the patient with Nursing staff reviewed the chart.~Reviewed interim history and current functioning. Reviewed vital signs,~Labs/ Radiology~and current medications noted below. Continue current treatment with the changes noted in the dictated addendum note Assessment: Vital Signs/I&O: Vital Signs Date Time Temp Pulse Resp B/P (MAP) Pulse Ox O2 Delivery O2 Flow Rate FiO2 12/11/20 15:26 97.4 65 20 142/65 (90) 97 12/11/20 05:44 Room Air I & O 12/10/20 12/10/20 12/11/20 14:59 22:59 06:59 Intake Total 840 ml 240 ml Balance 840 ml 240 ml Labs: Laboratory Tests Test 12/11/20 07:19 12/11/20 19:04 Glucose (Fingerstick) 88 mg/dL (70-99) 219 mg/dL (70-99) H Current Medications: Meds: Laboratory Tests Test 12/11/20 07:19 12/11/20 19:04 Glucose (Fingerstick) 88 mg/dL 219 mg/dL Current Medications Medications (Trade) Dose Ordered Sig/Vincenzo Route PRN Reason Start Time Stop Time Status Last Admin Dose Admin Acetaminophen (Tylenol) 650 mg PRN Q6HRS PRN PO MILD PAIN / TEMP > 100.3'F 11/28/20 16:45 12/11/20 10:21 DC Multi-Ingredient Ointment (Analgesic [place]) 1 esther PRN QID PRN TP MUSCLE PAIN 11/28/20 16:45 Al Hydroxide/Mg Hydroxide (Mylanta Plus Xs) 15 ml PRN AFTMEALHC PRN PO DYSPEPSIA 11/28/20 16:45 Magnesium Hydroxide (Milk Of Magnesia) 2,400 mg PRN QHS PRN PO 1ST CHOICE CONSTIPATION 11/28/20 16:45 Acetaminophen (Tylenol) 500 mg Q4HRS PRN PO PAIN/FEVER 11/28/20 18:00 12/01/20 09:05 Baclofen (Lioresal) 10 mg QID PO 11/28/20 21:00 12/11/20 19:59 Bisacodyl (Dulcolax Supp) 10 mg PRN DAILY PRN RC 2ND CHOICE CONSTIPATION 11/28/20 18:00 Carbidopa/Levodopa (Sinemet 25/100) 1 tab BID PO 11/28/20 21:00 12/01/20 18:16 DC 12/01/20 09:06 Vitamin D (Vitamin D3) 1,000 unit DAILY PO 11/29/20 09:00 12/11/20 08:07 Clopidogrel Bisulfate (Plavix) 75 mg DAILY PO 11/29/20 09:00 12/11/20 08:09 Donepezil HCl (Aricept) 10 mg QHS PO 11/28/20 21:00 12/11/20 21:00 Fenofibrate (Tricor) 145 mg DAILY PO 11/29/20 09:00 12/11/20 08:07 Furosemide (Lasix) 20 mg DAILY PO 11/29/20 09:00 12/11/20 08:07 Lorazepam (Ativan) 1 mg BID PO 11/28/20 21:00 11/30/20 18:02 DC 11/30/20 08:25 Al Hydroxide/Mg Hydroxide (Mylanta Plus Xs) 30 ml PRN Q2HRS PRN PO UPSET STOMACH 11/28/20 18:00 Metoprolol Succinate (Toprol Xl) 25 mg DAILY PO 11/29/20 09:00 12/10/20 08:31 Nitroglycerin (Nitrostat) 0.4 mg PRN Q5MIN PRN SL CHEST PAIN 11/28/20 18:00 Quetiapine Fumarate (SEROquel) 50 mg DAILY PO 11/29/20 09:00 12/11/20 08:06 Ropinirole HCl (Requip) 0.5 mg HS PO 11/28/20 21:00 12/11/20 19:58 Senna/Docusate Sodium (Senna Plus) 1 tab BID PO 11/28/20 21:00 12/11/20 19:59 Temazepam (Restoril) 7.5 mg QHS PO 11/28/20 21:00 11/28/20 20:32 DC Triamcinolone Acetonide (Kenalog) 1 esther PRN BID PRN TP BILAT ANKLE RASH 11/28/20 18:00 Cyanocobalamin (Vitamin B-12) 1,000 mcg DAILY PO 11/29/20 09:00 12/11/20 08:06 Zinc Acetate/ Diphenhydramine (Benadryl Topical) 1 esther PRN TID PRN TP BILAT ANKLE RASH ITCHING 11/28/20 18:45 Citalopram Hydrobromide (CeleXA) 10 mg DAILY PO 11/29/20 09:00 12/02/20 17:44 DC 12/02/20 08:23 Famotidine (Pepcid) 40 mg HS PO 11/28/20 21:00 12/11/20 19:59 Lactobacillus Rhamnosus (Culturelle) 2 cap BID PO 11/28/20 21:00 12/11/20 19:59 Levetiracetam (Keppra) 1,000 mg BID PO 11/28/20 21:00 12/11/20 19:58 Melatonin (Melatonin) 6 mg QHS PO 11/28/20 21:00 12/11/20 19:58 Niacin (Slo-Niacin) 250 mg QHS PO 11/28/20 21:00 12/11/20 19:59 Ondansetron HCl (Zofran Odt) 4 mg PRN Q4HRS PRN PO NAUSEA/VOMITING 11/28/20 18:45 Polyethylene Glycol (miraLAX) 17 gm DAILY PO 11/29/20 09:00 12/11/20 08:06 Non-Formulary Medication (Rosuvastatin Calcium (Crestor)) 40 mg HS PO 11/28/20 21:00 12/11/20 20:42 DC Temazepam (Restoril) 7.5 mg QHS PO 11/28/20 21:00 11/30/20 18:01 DC 11/29/20 21:13 Lorazepam (Ativan) 1 mg QHS PO 11/30/20 21:00 12/11/20 19:59 Lorazepam (Ativan) 0.5 mg DAILY PO 12/01/20 09:00 12/11/20 08:06 Mirtazapine (Remeron) 7.5 mg QHS PO 11/30/20 21:00 12/11/20 19:58 Divalproex Sodium (Depakote Sprinkles) 500 mg HS PO 12/01/20 21:00 12/06/20 17:56 DC 12/05/20 20:00 Carbidopa/Levodopa (Sinemet 25/100) 1 tab TID PO 12/01/20 21:00 12/11/20 19:59 Bupropion HCl (Wellbutrin Xl) 150 mg DAILY PO 12/03/20 09:00 12/06/20 17:56 DC 12/06/20 09:53 Olanzapine (ZyPREXA ZYDIS) 2.5 mg PRN Q2HRS PRN PO ANXIETY / AGITATION 12/03/20 19:45 12/11/20 14:47 Bupropion HCl (Wellbutrin Xl) 300 mg DAILY PO 12/07/20 09:00 12/09/20 17:57 DC 12/09/20 08:04 Divalproex Sodium (Depakote Sprinkles) 750 mg HS PO 12/06/20 21:00 12/11/20 19:58 Sertraline HCl (Zoloft) 50 mg DAILY PO 12/10/20 09:00 12/11/20 08:07 Quetiapine Fumarate (SEROquel) 12.5 mg 0900,1300 PO 12/12/20 09:00 I have reviewed the current psychotropics carefully including drug interactions. Risk benefit ratio favors no change other than as noted in my dictated progress note. 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
[2020-12-12 05:49] VITALS: BP 119/76
[2020-12-12] MEDS: POLYETHYLENE GLYCOL 3350 17 GM PACKET. PO SCH (08:11)
[2020-12-12] MEDS: LORazepam 0.5 MG TABLET PO SCH (08:12)
[2020-12-12] MEDS: FUROSEMIDE 20 MG TABLET PO SCH (08:12)
[2020-12-12] MEDS: LACTOBACILLUS RHAMNOSUS GG 1 CAPSULE. PO SCH ×2 (08:12→20:01)
[2020-12-12] MEDS: SENNOSIDES/DOCUSATE 8.6/50MG TABLET. PO SCH ×2 (08:12→20:01)
[2020-12-12] MEDS: METOPROLOL SUCC 24HR ER 25 MG TAB.ER.24H. PO SCH (08:12)
[2020-12-12] MEDS: QUEtiapine 50 MG TABLET. PO SCH (08:12)
[2020-12-12] MEDS: BACLOFEN 10 MG TABLET PO SCH ×4 (08:13→20:01)
[2020-12-12] MEDS: CLOPIDOGREL BISULFATE 75 MG TABLET PO SCH (08:13)
[2020-12-12] MEDS: CYANOCOBALAMIN (VITAMIN B-12) 1,000 MCG TABLET. PO SCH (08:13)
[2020-12-12] MEDS: levETIRAcetam 500 MG TABLET PO SCH ×2 (08:13→20:00)
[2020-12-12] MEDS: CARBIDOPA/LEVODOPA 25/100MG TABLET PO SCH ×3 (08:13→20:01)
[2020-12-12] MEDS: CHOLECALCIFEROL (VITAMIN D3) 1,000 UNIT TABLET PO SCH (08:13)
[2020-12-12] MEDS: FENOFIBRATE NANOCRYSTALLIZED 145 MG TABLET PO SCH (08:13)
[2020-12-12] MEDS: SERTRALINE 50 MG TABLET. PO SCH (08:13)
--- NOTE | 2020-12-12 08:47 | PDOC ---
Exam Note: Carl Note: This note is a late entry for 12/11/2020 covers elements not covered in my initial note. Subjective: The patient was seen individually in the evening of 12/11/2020 with Alfreda WISDOM, discussed and reviewed the chart. He slept 7-3/4 hours previous night. The patient has been quite agitated later in the day today and received Zyprexa 2.5 mg at 2.45 p.m. He was hitting his wheelchair against the wall and then posturing and threatening nursing staff, easily irritable. Review of Systems: Ambulation impaired in wheelchair. No CV, , pulmonary, eye system symptoms on review. He has parkinsonian facial expression. Mental Status Exam: The patient is oriented to himself. Verbal responses are monosyllabic. Abstraction fair. Computation impaired. Language function intact. Mood and affect somewhat labile, anxious, distractible. Laboratory Data: Reviewed. 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 Anxiety disorder unspecified. Impulse control disorder unspecified. Plan: No change from initial note and as noted above. Start Seroquel 12.5 mg 9 a.m., 1 p.m. Maintain rest of the psychotropics unchanged. I have carefully reviewed the drug-drug interactions and risk-benefit ratio favors adjusting Seroquel further depending on his progress, especially given his history of Parkinsons. Assessment: Vital Signs/I&O: Vital Signs Date Time Temp Pulse Resp B/P (MAP) Pulse Ox O2 Delivery O2 Flow Rate FiO2 12/12/20 08:12 66 119/76 12/12/20 05:49 98.7 18 97 12/11/20 05:44 Room Air I & O 12/11/20 12/11/20 12/12/20 14:59 22:59 06:59 Intake Total 600 ml 480 ml Balance 600 ml 480 ml Labs: Laboratory Tests Test 12/11/20 19:04 12/12/20 07:18 Glucose (Fingerstick) 219 mg/dL (70-99) H 85 mg/dL (70-99) Current Medications: Meds: Laboratory Tests Test 12/11/20 19:04 12/12/20 07:18 Glucose (Fingerstick) 219 mg/dL 85 mg/dL Current Medications Medications (Trade) Dose Ordered Sig/Vincenzo Route PRN Reason Start Time Stop Time Status Last Admin Dose Admin Acetaminophen (Tylenol) 650 mg PRN Q6HRS PRN PO MILD PAIN / TEMP > 100.3'F 11/28/20 16:45 12/11/20 10:21 DC Multi-Ingredient Ointment (Analgesic [place]) 1 esther PRN QID PRN TP MUSCLE PAIN 11/28/20 16:45 Al Hydroxide/Mg Hydroxide (Mylanta Plus Xs) 15 ml PRN AFTMEALHC PRN PO DYSPEPSIA 11/28/20 16:45 Magnesium Hydroxide (Milk Of Magnesia) 2,400 mg PRN QHS PRN PO 1ST CHOICE CONSTIPATION 11/28/20 16:45 Acetaminophen (Tylenol) 500 mg Q4HRS PRN PO PAIN/FEVER 11/28/20 18:00 12/01/20 09:05 Baclofen (Lioresal) 10 mg QID PO 11/28/20 21:00 12/12/20 08:13 Bisacodyl (Dulcolax Supp) 10 mg PRN DAILY PRN RC 2ND CHOICE CONSTIPATION 11/28/20 18:00 Carbidopa/Levodopa (Sinemet 25/100) 1 tab BID PO 11/28/20 21:00 12/01/20 18:16 DC 12/01/20 09:06 Vitamin D (Vitamin D3) 1,000 unit DAILY PO 11/29/20 09:00 12/12/20 08:13 Clopidogrel Bisulfate (Plavix) 75 mg DAILY PO 11/29/20 09:00 12/12/20 08:13 Donepezil HCl (Aricept) 10 mg QHS PO 11/28/20 21:00 12/11/20 21:00 Fenofibrate (Tricor) 145 mg DAILY PO 11/29/20 09:00 12/12/20 08:13 Furosemide (Lasix) 20 mg DAILY PO 11/29/20 09:00 12/12/20 08:12 Lorazepam (Ativan) 1 mg BID PO 11/28/20 21:00 11/30/20 18:02 DC 11/30/20 08:25 Al Hydroxide/Mg Hydroxide (Mylanta Plus Xs) 30 ml PRN Q2HRS PRN PO UPSET STOMACH 11/28/20 18:00 Metoprolol Succinate (Toprol Xl) 25 mg DAILY PO 11/29/20 09:00 12/12/20 08:12 Nitroglycerin (Nitrostat) 0.4 mg PRN Q5MIN PRN SL CHEST PAIN 11/28/20 18:00 Quetiapine Fumarate (SEROquel) 50 mg DAILY PO 11/29/20 09:00 12/12/20 08:12 Ropinirole HCl (Requip) 0.5 mg HS PO 11/28/20 21:00 12/11/20 19:58 Senna/Docusate Sodium (Senna Plus) 1 tab BID PO 11/28/20 21:00 12/12/20 08:12 Temazepam (Restoril) 7.5 mg QHS PO 11/28/20 21:00 11/28/20 20:32 DC Triamcinolone Acetonide (Kenalog) 1 esther PRN BID PRN TP BILAT ANKLE RASH 11/28/20 18:00 Cyanocobalamin (Vitamin B-12) 1,000 mcg DAILY PO 11/29/20 09:00 12/12/20 08:13 Zinc Acetate/ Diphenhydramine (Benadryl Topical) 1 esther PRN TID PRN TP BILAT ANKLE RASH ITCHING 11/28/20 18:45 Citalopram Hydrobromide (CeleXA) 10 mg DAILY PO 11/29/20 09:00 12/02/20 17:44 DC 12/02/20 08:23 Famotidine (Pepcid) 40 mg HS PO 11/28/20 21:00 12/11/20 19:59 Lactobacillus Rhamnosus (Culturelle) 2 cap BID PO 11/28/20 21:00 12/12/20 08:12 Levetiracetam (Keppra) 1,000 mg BID PO 11/28/20 21:00 12/12/20 08:13 Melatonin (Melatonin) 6 mg QHS PO 11/28/20 21:00 12/11/20 19:58 Niacin (Slo-Niacin) 250 mg QHS PO 11/28/20 21:00 12/11/20 19:59 Ondansetron HCl (Zofran Odt) 4 mg PRN Q4HRS PRN PO NAUSEA/VOMITING 11/28/20 18:45 Polyethylene Glycol (miraLAX) 17 gm DAILY PO 11/29/20 09:00 12/12/20 08:11 Non-Formulary Medication (Rosuvastatin Calcium (Crestor)) 40 mg HS PO 11/28/20 21:00 12/11/20 20:42 DC Temazepam (Restoril) 7.5 mg QHS PO 11/28/20 21:00 11/30/20 18:01 DC 11/29/20 21:13 Lorazepam (Ativan) 1 mg QHS PO 11/30/20 21:00 12/11/20 19:59 Lorazepam (Ativan) 0.5 mg DAILY PO 12/01/20 09:00 12/12/20 08:12 Mirtazapine (Remeron) 7.5 mg QHS PO 11/30/20 21:00 12/11/20 19:58 Divalproex Sodium (Depakote Sprinkles) 500 mg HS PO 12/01/20 21:00 12/06/20 17:56 DC 12/05/20 20:00 Carbidopa/Levodopa (Sinemet 25/100) 1 tab TID PO 12/01/20 21:00 12/12/20 08:13 Bupropion HCl (Wellbutrin Xl) 150 mg DAILY PO 12/03/20 09:00 12/06/20 17:56 DC 12/06/20 09:53 Olanzapine (ZyPREXA ZYDIS) 2.5 mg PRN Q2HRS PRN PO ANXIETY / AGITATION 12/03/20 19:45 12/11/20 14:47 Bupropion HCl (Wellbutrin Xl) 300 mg DAILY PO 12/07/20 09:00 12/09/20 17:57 DC 12/09/20 08:04 Divalproex Sodium (Depakote Sprinkles) 750 mg HS PO 12/06/20 21:00 12/11/20 19:58 Sertraline HCl (Zoloft) 50 mg DAILY PO 12/10/20 09:00 12/12/20 08:13 Quetiapine Fumarate (SEROquel) 12.5 mg 0900,1300 PO 12/12/20 09:00 12/12/20 07:32 DC Quetiapine Fumarate (SEROquel) 25 mg 1200,1700 PO 12/12/20 12:00 I have reviewed the current psychotropics carefully including drug interactions. Risk benefit ratio favors no change other than as noted in my dictated progress note. 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
[2020-12-12] MEDS ORDERED: QUEtiapine 25 MG TABLET. PO SCH (09:00)
[2020-12-12] MEDS: QUEtiapine 25 MG TABLET. PO SCH ×2 (12:14→17:16)
[2020-12-12 15:36] VITALS: BP 99/64
[2020-12-12] MEDS: LORazepam 1 MG TABLET PO SCH (20:00)
[2020-12-12] MEDS: MIRTAZAPINE 7.5 MG TABLET. PO SCH (20:00)
[2020-12-12] MEDS: DONEPEZIL HCL 10 MG TABLET PO SCH (20:00)
[2020-12-12] MEDS: rOPINIRole 0.5 MG TABLET. PO SCH (20:00)
[2020-12-12] MEDS: DIVALPROEX 125 MG CAP.SPRINK PO SCH (20:01)
[2020-12-12] MEDS: NIACIN ER 500 MG TABLET.ER PO SCH (20:01)
[2020-12-12] MEDS: FAMOTIDINE 20 MG TABLET PO SCH (20:01)
[2020-12-12] MEDS: MINERAL OIL/PETROLATUM TOPICAL CREAM 113GM JAR. TP SCH (20:02)
[2020-12-12] MEDS: MELATONIN 3 MG TABLET PO SCH (20:02)
--- NOTE | 2020-12-12 21:57 | PDOC ---
Exam Note: Carl Note: Please also refer to the separate dictated note~for this date of service dictated separately.~Patient seen individually. Discussed the patient with Nursing staff reviewed the chart.~Reviewed interim history and current functioning. Reviewed vital signs,~Labs/ Radiology~and current medications noted below. Continue current treatment with the changes noted in the dictated addendum note Assessment: Vital Signs/I&O: Vital Signs Date Time Temp Pulse Resp B/P (MAP) Pulse Ox O2 Delivery O2 Flow Rate FiO2 12/12/20 15:36 98.0 63 16 99/64 (76) 99 12/11/20 05:44 Room Air I & O 12/11/20 12/11/20 12/12/20 15:00 23:00 07:00 Intake Total 600 ml 480 ml Balance 600 ml 480 ml Labs: Laboratory Tests Test 12/12/20 07:18 12/12/20 19:18 Glucose (Fingerstick) 85 mg/dL (70-99) 145 mg/dL (70-99) H Current Medications: Meds: Laboratory Tests Test 12/12/20 07:18 12/12/20 19:18 Glucose (Fingerstick) 85 mg/dL 145 mg/dL Current Medications Medications (Trade) Dose Ordered Sig/Vincenzo Route PRN Reason Start Time Stop Time Status Last Admin Dose Admin Acetaminophen (Tylenol) 650 mg PRN Q6HRS PRN PO MILD PAIN / TEMP > 100.3'F 11/28/20 16:45 12/11/20 10:21 DC Multi-Ingredient Ointment (Analgesic [place]) 1 esther PRN QID PRN TP MUSCLE PAIN 11/28/20 16:45 Al Hydroxide/Mg Hydroxide (Mylanta Plus Xs) 15 ml PRN AFTMEALHC PRN PO DYSPEPSIA 11/28/20 16:45 Magnesium Hydroxide (Milk Of Magnesia) 2,400 mg PRN QHS PRN PO 1ST CHOICE CONSTIPATION 11/28/20 16:45 Acetaminophen (Tylenol) 500 mg Q4HRS PRN PO PAIN/FEVER 11/28/20 18:00 12/01/20 09:05 Baclofen (Lioresal) 10 mg QID PO 11/28/20 21:00 12/12/20 20:01 Bisacodyl (Dulcolax Supp) 10 mg PRN DAILY PRN RC 2ND CHOICE CONSTIPATION 11/28/20 18:00 Carbidopa/Levodopa (Sinemet 25/100) 1 tab BID PO 11/28/20 21:00 12/01/20 18:16 DC 12/01/20 09:06 Vitamin D (Vitamin D3) 1,000 unit DAILY PO 11/29/20 09:00 12/12/20 08:13 Clopidogrel Bisulfate (Plavix) 75 mg DAILY PO 11/29/20 09:00 12/12/20 08:13 Donepezil HCl (Aricept) 10 mg QHS PO 11/28/20 21:00 12/12/20 20:00 Fenofibrate (Tricor) 145 mg DAILY PO 11/29/20 09:00 12/12/20 08:13 Furosemide (Lasix) 20 mg DAILY PO 11/29/20 09:00 12/12/20 08:12 Lorazepam (Ativan) 1 mg BID PO 11/28/20 21:00 11/30/20 18:02 DC 11/30/20 08:25 Al Hydroxide/Mg Hydroxide (Mylanta Plus Xs) 30 ml PRN Q2HRS PRN PO UPSET STOMACH 11/28/20 18:00 Metoprolol Succinate (Toprol Xl) 25 mg DAILY PO 11/29/20 09:00 12/12/20 08:12 Nitroglycerin (Nitrostat) 0.4 mg PRN Q5MIN PRN SL CHEST PAIN 11/28/20 18:00 Quetiapine Fumarate (SEROquel) 50 mg DAILY PO 11/29/20 09:00 12/12/20 08:12 Ropinirole HCl (Requip) 0.5 mg HS PO 11/28/20 21:00 12/12/20 20:00 Senna/Docusate Sodium (Senna Plus) 1 tab BID PO 11/28/20 21:00 12/12/20 20:01 Temazepam (Restoril) 7.5 mg QHS PO 11/28/20 21:00 11/28/20 20:32 DC Triamcinolone Acetonide (Kenalog) 1 esther PRN BID PRN TP BILAT ANKLE RASH 11/28/20 18:00 Cyanocobalamin (Vitamin B-12) 1,000 mcg DAILY PO 11/29/20 09:00 12/12/20 08:13 Zinc Acetate/ Diphenhydramine (Benadryl Topical) 1 esther PRN TID PRN TP BILAT ANKLE RASH ITCHING 11/28/20 18:45 Citalopram Hydrobromide (CeleXA) 10 mg DAILY PO 11/29/20 09:00 12/02/20 17:44 DC 12/02/20 08:23 Famotidine (Pepcid) 40 mg HS PO 11/28/20 21:00 12/12/20 20:01 Lactobacillus Rhamnosus (Culturelle) 2 cap BID PO 11/28/20 21:00 12/12/20 20:01 Levetiracetam (Keppra) 1,000 mg BID PO 11/28/20 21:00 12/12/20 20:00 Melatonin (Melatonin) 6 mg QHS PO 11/28/20 21:00 12/12/20 20:02 Niacin (Slo-Niacin) 250 mg QHS PO 11/28/20 21:00 12/12/20 20:01 Ondansetron HCl (Zofran Odt) 4 mg PRN Q4HRS PRN PO NAUSEA/VOMITING 11/28/20 18:45 Polyethylene Glycol (miraLAX) 17 gm DAILY PO 11/29/20 09:00 12/12/20 08:11 Non-Formulary Medication (Rosuvastatin Calcium (Crestor)) 40 mg HS PO 11/28/20 21:00 12/11/20 20:42 DC Temazepam (Restoril) 7.5 mg QHS PO 11/28/20 21:00 11/30/20 18:01 DC 11/29/20 21:13 Lorazepam (Ativan) 1 mg QHS PO 11/30/20 21:00 12/12/20 20:00 Lorazepam (Ativan) 0.5 mg DAILY PO 12/01/20 09:00 12/12/20 08:12 Mirtazapine (Remeron) 7.5 mg QHS PO 11/30/20 21:00 12/12/20 20:00 Divalproex Sodium (Depakote Sprinkles) 500 mg HS PO 12/01/20 21:00 12/06/20 17:56 DC 12/05/20 20:00 Carbidopa/Levodopa (Sinemet 25/100) 1 tab TID PO 12/01/20 21:00 12/12/20 20:01 Bupropion HCl (Wellbutrin Xl) 150 mg DAILY PO 12/03/20 09:00 12/06/20 17:56 DC 12/06/20 09:53 Olanzapine (ZyPREXA ZYDIS) 2.5 mg PRN Q2HRS PRN PO ANXIETY / AGITATION 12/03/20 19:45 12/11/20 14:47 Bupropion HCl (Wellbutrin Xl) 300 mg DAILY PO 12/07/20 09:00 12/09/20 17:57 DC 12/09/20 08:04 Divalproex Sodium (Depakote Sprinkles) 750 mg HS PO 12/06/20 21:00 12/12/20 20:01 Sertraline HCl (Zoloft) 50 mg DAILY PO 12/10/20 09:00 12/12/20 08:13 Quetiapine Fumarate (SEROquel) 12.5 mg 0900,1300 PO 12/12/20 09:00 12/12/20 07:32 DC Quetiapine Fumarate (SEROquel) 25 mg 1200,1700 PO 12/12/20 12:00 12/12/20 17:16 Multi-Ingred Cream/Lotion/Oil/ Oint (Hydrocerin) 1 esther BID TP 12/12/20 21:00 Current Medications Medications (Trade) Dose Ordered Sig/Vincenzo Route PRN Reason Start Time Stop Time Status Last Admin Dose Admin Quetiapine Fumarate (SEROquel) 25 mg 1200,1700 PO 12/12/20 12:00 12/12/20 17:16 I have reviewed the current psychotropics carefully including drug interactions. Risk benefit ratio favors no change other than as noted in my dictated progress note. Diagnosis: Problems: (1) Impulse control disorder, unspecified (2) Anxiety disorder, unspecified (3) Major neurocognitive disorder (4) Lewy body dementia with behavioral disturbance (5) Dementia, vascular, with delusions (6) Dementia, vascular, with delirium (7) Dementia in Alzheimer's disease with depression (8) Dementia in Alzheimer's disease with delusions (9) Parkinson's disease GIGI MCCOY MD Dec 12, 2020 21:57
[2020-12-13 06:21] VITALS: BP 104/63
[2020-12-13] MEDS: MINERAL OIL/PETROLATUM TOPICAL CREAM 113GM JAR. TP SCH ×2 (09:00→19:52)
[2020-12-13] MEDS: CHOLECALCIFEROL (VITAMIN D3) 1,000 UNIT TABLET PO SCH (10:55)
[2020-12-13] MEDS: CLOPIDOGREL BISULFATE 75 MG TABLET PO SCH (10:55)
[2020-12-13] MEDS: BACLOFEN 10 MG TABLET PO SCH ×4 (10:55→19:47)
[2020-12-13] MEDS: CARBIDOPA/LEVODOPA 25/100MG TABLET PO SCH ×3 (10:55→19:47)
[2020-12-13] MEDS: LORazepam 0.5 MG TABLET PO SCH (10:56)
[2020-12-13] MEDS: METOPROLOL SUCC 24HR ER 25 MG TAB.ER.24H. PO SCH (10:56)
[2020-12-13] MEDS: ACETAMINOPHEN 500 MG TABLET PO PRN (10:56)
[2020-12-13] MEDS: SERTRALINE 50 MG TABLET. PO SCH (10:56)
[2020-12-13] MEDS: SENNOSIDES/DOCUSATE 8.6/50MG TABLET. PO SCH ×2 (10:56→19:48)
[2020-12-13] MEDS: FENOFIBRATE NANOCRYSTALLIZED 145 MG TABLET PO SCH (10:56)
[2020-12-13] MEDS: CYANOCOBALAMIN (VITAMIN B-12) 1,000 MCG TABLET. PO SCH (10:56)
[2020-12-13] MEDS: QUEtiapine 50 MG TABLET. PO SCH (10:56)
[2020-12-13] MEDS: LACTOBACILLUS RHAMNOSUS GG 1 CAPSULE. PO SCH ×2 (10:56→19:47)
[2020-12-13] MEDS: levETIRAcetam 500 MG TABLET PO SCH ×2 (10:57→19:48)
[2020-12-13] MEDS: FUROSEMIDE 20 MG TABLET PO SCH (10:57)
[2020-12-13] MEDS: POLYETHYLENE GLYCOL 3350 17 GM PACKET. PO SCH (10:57)
[2020-12-13] MEDS: QUEtiapine 25 MG TABLET. PO SCH ×2 (11:18→17:35)
[2020-12-13 15:56] VITALS: BP 108/70
[2020-12-13] MEDS: MELATONIN 3 MG TABLET PO SCH (19:47)
[2020-12-13] MEDS: rOPINIRole 0.5 MG TABLET. PO SCH (19:47)
[2020-12-13] MEDS: DIVALPROEX 125 MG CAP.SPRINK PO SCH (19:47)
[2020-12-13] MEDS: LORazepam 1 MG TABLET PO SCH (19:48)
[2020-12-13] MEDS: FAMOTIDINE 20 MG TABLET PO SCH (19:48)
[2020-12-13] MEDS: MIRTAZAPINE 7.5 MG TABLET. PO SCH (19:48)
[2020-12-13] MEDS: DONEPEZIL HCL 10 MG TABLET PO SCH (19:48)
[2020-12-13] MEDS: NIACIN ER 500 MG TABLET.ER PO SCH (19:49)
[2020-12-13 22:03] LABS: BILIRUBIN,URINE NEG (NEG); CLARITY,URINE CLEAR; COLOR,URINE YELLOW; GLUCOSE,URINE NEG (NEG); NITRITE,URINE NEG (NEG); UROBILINOGEN,URINE 0.2 mg/dL (0.2 mg/dL)
[2020-12-13 22:04] LABS: BACTERIA,URINE 0 /HPF (0-FEW); SQUAMOUS EPITHELIAL CELL,UR FEW /LPF; WBC,URINE 0 /HPF (0-4)
--- NOTE | 2020-12-13 22:04 | PDOC ---
Exam Note: Carl Note: Please also refer to the separate dictated note~for this date of service dictated separately.~Patient seen individually. Discussed the patient with Nursing staff reviewed the chart.~Reviewed interim history and current functioning. Reviewed vital signs,~Labs/ Radiology~and current medications noted below. Continue current treatment with the changes noted in the dictated addendum note Assessment: Vital Signs/I&O: Vital Signs Date Time Temp Pulse Resp B/P (MAP) Pulse Ox O2 Delivery O2 Flow Rate FiO2 12/13/20 15:56 98.0 65 18 108/70 (83) 98 12/11/20 05:44 Room Air I & O 12/12/20 12/12/20 12/13/20 15:00 23:00 07:00 Intake Total 720 ml 240 ml 240 ml Balance 720 ml 240 ml 240 ml Labs: Laboratory Tests Test 12/13/20 07:30 Glucose (Fingerstick) 91 mg/dL (70-99) Current Medications: Meds: Laboratory Tests Test 12/13/20 07:30 Glucose (Fingerstick) 91 mg/dL Current Medications Medications (Trade) Dose Ordered Sig/Vincenzo Route PRN Reason Start Time Stop Time Status Last Admin Dose Admin Acetaminophen (Tylenol) 650 mg PRN Q6HRS PRN PO MILD PAIN / TEMP > 100.3'F 11/28/20 16:45 12/11/20 10:21 DC Multi-Ingredient Ointment (Analgesic [place]) 1 esther PRN QID PRN TP MUSCLE PAIN 11/28/20 16:45 Al Hydroxide/Mg Hydroxide (Mylanta Plus Xs) 15 ml PRN AFTMEALHC PRN PO DYSPEPSIA 11/28/20 16:45 Magnesium Hydroxide (Milk Of Magnesia) 2,400 mg PRN QHS PRN PO 1ST CHOICE CONSTIPATION 11/28/20 16:45 Acetaminophen (Tylenol) 500 mg Q4HRS PRN PO PAIN/FEVER 11/28/20 18:00 12/13/20 10:56 Baclofen (Lioresal) 10 mg QID PO 11/28/20 21:00 12/13/20 19:47 Bisacodyl (Dulcolax Supp) 10 mg PRN DAILY PRN RC 2ND CHOICE CONSTIPATION 11/28/20 18:00 Carbidopa/Levodopa (Sinemet 25/100) 1 tab BID PO 11/28/20 21:00 12/01/20 18:16 DC 12/01/20 09:06 Vitamin D (Vitamin D3) 1,000 unit DAILY PO 11/29/20 09:00 12/13/20 10:55 Clopidogrel Bisulfate (Plavix) 75 mg DAILY PO 11/29/20 09:00 12/13/20 10:55 Donepezil HCl (Aricept) 10 mg QHS PO 11/28/20 21:00 12/13/20 19:48 Fenofibrate (Tricor) 145 mg DAILY PO 11/29/20 09:00 12/13/20 10:56 Furosemide (Lasix) 20 mg DAILY PO 11/29/20 09:00 12/13/20 10:57 Lorazepam (Ativan) 1 mg BID PO 11/28/20 21:00 11/30/20 18:02 DC 11/30/20 08:25 Al Hydroxide/Mg Hydroxide (Mylanta Plus Xs) 30 ml PRN Q2HRS PRN PO UPSET STOMACH 11/28/20 18:00 Metoprolol Succinate (Toprol Xl) 25 mg DAILY PO 11/29/20 09:00 12/13/20 10:56 Nitroglycerin (Nitrostat) 0.4 mg PRN Q5MIN PRN SL CHEST PAIN 11/28/20 18:00 Quetiapine Fumarate (SEROquel) 50 mg DAILY PO 11/29/20 09:00 12/13/20 10:56 Ropinirole HCl (Requip) 0.5 mg HS PO 11/28/20 21:00 12/13/20 19:47 Senna/Docusate Sodium (Senna Plus) 1 tab BID PO 11/28/20 21:00 12/13/20 19:48 Temazepam (Restoril) 7.5 mg QHS PO 11/28/20 21:00 11/28/20 20:32 DC Triamcinolone Acetonide (Kenalog) 1 esther PRN BID PRN TP BILAT ANKLE RASH 11/28/20 18:00 Cyanocobalamin (Vitamin B-12) 1,000 mcg DAILY PO 11/29/20 09:00 12/13/20 10:56 Zinc Acetate/ Diphenhydramine (Benadryl Topical) 1 esther PRN TID PRN TP BILAT ANKLE RASH ITCHING 11/28/20 18:45 Citalopram Hydrobromide (CeleXA) 10 mg DAILY PO 11/29/20 09:00 12/02/20 17:44 DC 12/02/20 08:23 Famotidine (Pepcid) 40 mg HS PO 11/28/20 21:00 12/13/20 19:48 Lactobacillus Rhamnosus (Culturelle) 2 cap BID PO 11/28/20 21:00 12/13/20 19:47 Levetiracetam (Keppra) 1,000 mg BID PO 11/28/20 21:00 12/13/20 19:48 Melatonin (Melatonin) 6 mg QHS PO 11/28/20 21:00 12/13/20 19:47 Niacin (Slo-Niacin) 250 mg QHS PO 11/28/20 21:00 12/13/20 19:49 Ondansetron HCl (Zofran Odt) 4 mg PRN Q4HRS PRN PO NAUSEA/VOMITING 11/28/20 18:45 Polyethylene Glycol (miraLAX) 17 gm DAILY PO 11/29/20 09:00 12/13/20 10:57 Non-Formulary Medication (Rosuvastatin Calcium (Crestor)) 40 mg HS PO 11/28/20 21:00 12/11/20 20:42 DC Temazepam (Restoril) 7.5 mg QHS PO 11/28/20 21:00 11/30/20 18:01 DC 11/29/20 21:13 Lorazepam (Ativan) 1 mg QHS PO 11/30/20 21:00 12/13/20 19:48 Lorazepam (Ativan) 0.5 mg DAILY PO 12/01/20 09:00 12/13/20 10:56 Mirtazapine (Remeron) 7.5 mg QHS PO 11/30/20 21:00 12/13/20 19:48 Divalproex Sodium (Depakote Sprinkles) 500 mg HS PO 12/01/20 21:00 12/06/20 17:56 DC 12/05/20 20:00 Carbidopa/Levodopa (Sinemet 25/100) 1 tab TID PO 12/01/20 21:00 12/13/20 19:47 Bupropion HCl (Wellbutrin Xl) 150 mg DAILY PO 12/03/20 09:00 12/06/20 17:56 DC 12/06/20 09:53 Olanzapine (ZyPREXA ZYDIS) 2.5 mg PRN Q2HRS PRN PO ANXIETY / AGITATION 12/03/20 19:45 12/11/20 14:47 Bupropion HCl (Wellbutrin Xl) 300 mg DAILY PO 12/07/20 09:00 12/09/20 17:57 DC 12/09/20 08:04 Divalproex Sodium (Depakote Sprinkles) 750 mg HS PO 12/06/20 21:00 12/13/20 19:47 Sertraline HCl (Zoloft) 50 mg DAILY PO 12/10/20 09:00 12/13/20 10:56 Quetiapine Fumarate (SEROquel) 12.5 mg 0900,1300 PO 12/12/20 09:00 12/12/20 07:32 DC Quetiapine Fumarate (SEROquel) 25 mg 1200,1700 PO 12/12/20 12:00 12/13/20 17:35 Multi-Ingred Cream/Lotion/Oil/ Oint (Hydrocerin) 1 esther BID TP 12/12/20 21:00 12/13/20 19:52 I have reviewed the current psychotropics carefully including drug interactions. Risk benefit ratio favors no change other than as noted in my dictated progress note. 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
[2020-12-14 05:52] VITALS: BP 122/74
--- NOTE | 2020-12-14 08:09 | PDOC ---
Exam Note: Carl Note: This note is a late entry for 12/12/2020 covers elements not covered in my initial note. Subjective: The patient was seen individually in the evening of 12/12/2020 with Alfreda WISDOM, discussed and reviewed the chart. He slept 6-1/4 hours previous night. The patient remains confused, somewhat anxious, labile at times, irritable, still somewhat paranoid. Review of Systems: Ambulation impaired in wheelchair. No CV, , pulmonary, eye system symptoms on review. He has parkinsonian facial expression. Mental Status Exam: The patient is oriented to himself. Verbal responses are monosyllabic. Abstraction fair. Computation impaired. Language function intact. Mood and affect somewhat labile, anxious, paranoid. Laboratory Data: Reviewed. 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 Anxiety disorder unspecified. Impulse control disorder unspecified. Plan: No change from initial note. Continue Depakote at current dosage. Level therapeutic at 58. Start Seroquel 25 mg at noon and 5 p.m. He remains on 50 mg in the morning. Make further adjustments as clinically indicated. He also remains on Seroquel 12.5 mg at 0900 and 1300[address] Defer [address] Dr[address] Florian, Neurology for managing Parkinsons. Assessment: Vital Signs/I&O: Vital Signs Date Time Temp Pulse Resp B/P (MAP) Pulse Ox O2 Delivery O2 Flow Rate FiO2 12/14/20 05:52 97.5 59 16 122/74 (90) 98 12/11/20 05:44 Room Air I & O 12/13/20 12/13/20 12/14/20 14:59 22:59 06:59 Intake Total 360 ml 240 ml 240 ml Balance 360 ml 240 ml 240 ml Labs: Laboratory Tests Test 12/13/20 21:15 12/14/20 07:27 Urine Collection Type U cath Urine Color Yellow Urine Clarity Clear Urine pH 5.5 Urine Specific [place] 1.025 Urine Protein Neg (NEG-TRACE) Urine Glucose (UA) Neg mg/dL (NEG) Urine Ketones (Stick) Neg mg/dL (NEG) Urine Blood Large (NEG) Urine Nitrite Neg (NEG) Urine Bilirubin Neg (NEG) Urine Urobilinogen Dipstick 0.2 mg/dL (0.2 mg/dL) Urine Leukocyte Esterase Neg (NEG) Urine RBC 11-20 /HPF (0-2) Urine WBC 0 /HPF (0-4) Urine Squamous Epithelial Cells Few /LPF Urine Bacteria 0 /HPF (0-FEW) Glucose (Fingerstick) 97 mg/dL (70-99) Current Medications: Meds: Laboratory Tests Test 12/13/20 21:15 12/14/20 07:27 Urine Collection Type U cath Urine Color Yellow Urine Clarity Clear Urine pH 5.5 Urine Specific [place] 1.025 Urine Protein Neg Urine Glucose (UA) Neg mg/dL Urine Ketones (Stick) Neg mg/dL Urine Blood Large Urine Nitrite Neg Urine Bilirubin Neg Urine Urobilinogen Dipstick 0.2 mg/dL Urine Leukocyte Esterase Neg Urine RBC 11-20 /HPF Urine WBC 0 /HPF Urine Squamous Epithelial Cells Few /LPF Urine Bacteria 0 /HPF Glucose (Fingerstick) 97 mg/dL Current Medications Medications (Trade) Dose Ordered Sig/Vincenzo Route PRN Reason Start Time Stop Time Status Last Admin Dose Admin Acetaminophen (Tylenol) 650 mg PRN Q6HRS PRN PO MILD PAIN / TEMP > 100.3'F 11/28/20 16:45 12/11/20 10:21 DC Multi-Ingredient Ointment (Analgesic [place]) 1 esther PRN QID PRN TP MUSCLE PAIN 11/28/20 16:45 Al Hydroxide/Mg Hydroxide (Mylanta Plus Xs) 15 ml PRN AFTMEALHC PRN PO DYSPEPSIA 11/28/20 16:45 Magnesium Hydroxide (Milk Of Magnesia) 2,400 mg PRN QHS PRN PO 1ST CHOICE CONSTIPATION 11/28/20 16:45 Acetaminophen (Tylenol) 500 mg Q4HRS PRN PO PAIN/FEVER 11/28/20 18:00 12/13/20 10:56 Baclofen (Lioresal) 10 mg QID PO 11/28/20 21:00 12/13/20 19:47 Bisacodyl (Dulcolax Supp) 10 mg PRN DAILY PRN RC 2ND CHOICE CONSTIPATION 11/28/20 18:00 Carbidopa/Levodopa (Sinemet 25/100) 1 tab BID PO 11/28/20 21:00 12/01/20 18:16 DC 12/01/20 09:06 Vitamin D (Vitamin D3) 1,000 unit DAILY PO 11/29/20 09:00 12/13/20 10:55 Clopidogrel Bisulfate (Plavix) 75 mg DAILY PO 11/29/20 09:00 12/13/20 10:55 Donepezil HCl (Aricept) 10 mg QHS PO 11/28/20 21:00 12/13/20 19:48 Fenofibrate (Tricor) 145 mg DAILY PO 11/29/20 09:00 12/13/20 10:56 Furosemide (Lasix) 20 mg DAILY PO 11/29/20 09:00 12/13/20 10:57 Lorazepam (Ativan) 1 mg BID PO 11/28/20 21:00 11/30/20 18:02 DC 11/30/20 08:25 Al Hydroxide/Mg Hydroxide (Mylanta Plus Xs) 30 ml PRN Q2HRS PRN PO UPSET STOMACH 11/28/20 18:00 Metoprolol Succinate (Toprol Xl) 25 mg DAILY PO 11/29/20 09:00 12/13/20 10:56 Nitroglycerin (Nitrostat) 0.4 mg PRN Q5MIN PRN SL CHEST PAIN 11/28/20 18:00 Quetiapine Fumarate (SEROquel) 50 mg DAILY PO 11/29/20 09:00 12/13/20 10:56 Ropinirole HCl (Requip) 0.5 mg HS PO 11/28/20 21:00 12/13/20 19:47 Senna/Docusate Sodium (Senna Plus) 1 tab BID PO 11/28/20 21:00 12/13/20 19:48 Temazepam (Restoril) 7.5 mg QHS PO 11/28/20 21:00 11/28/20 20:32 DC Triamcinolone Acetonide (Kenalog) 1 esther PRN BID PRN TP BILAT ANKLE RASH 11/28/20 18:00 Cyanocobalamin (Vitamin B-12) 1,000 mcg DAILY PO 11/29/20 09:00 12/13/20 10:56 Zinc Acetate/ Diphenhydramine (Benadryl Topical) 1 esther PRN TID PRN TP BILAT ANKLE RASH ITCHING 11/28/20 18:45 Citalopram Hydrobromide (CeleXA) 10 mg DAILY PO 11/29/20 09:00 12/02/20 17:44 DC 12/02/20 08:23 Famotidine (Pepcid) 40 mg HS PO 11/28/20 21:00 12/13/20 19:48 Lactobacillus Rhamnosus (Culturelle) 2 cap BID PO 11/28/20 21:00 12/13/20 19:47 Levetiracetam (Keppra) 1,000 mg BID PO 11/28/20 21:00 12/13/20 19:48 Melatonin (Melatonin) 6 mg QHS PO 11/28/20 21:00 12/13/20 19:47 Niacin (Slo-Niacin) 250 mg QHS PO 11/28/20 21:00 12/13/20 19:49 Ondansetron HCl (Zofran Odt) 4 mg PRN Q4HRS PRN PO NAUSEA/VOMITING 11/28/20 18:45 Polyethylene Glycol (miraLAX) 17 gm DAILY PO 11/29/20 09:00 12/13/20 10:57 Non-Formulary Medication (Rosuvastatin Calcium (Crestor)) 40 mg HS PO 11/28/20 21:00 12/11/20 20:42 DC Temazepam (Restoril) 7.5 mg QHS PO 11/28/20 21:00 11/30/20 18:01 DC 11/29/20 21:13 Lorazepam (Ativan) 1 mg QHS PO 11/30/20 21:00 12/13/20 19:48 Lorazepam (Ativan) 0.5 mg DAILY PO 12/01/20 09:00 12/13/20 10:56 Mirtazapine (Remeron) 7.5 mg QHS PO 11/30/20 21:00 12/13/20 19:48 Divalproex Sodium (Depakote Sprinkles) 500 mg HS PO 12/01/20 21:00 12/06/20 17:56 DC 12/05/20 20:00 Carbidopa/Levodopa (Sinemet 25/100) 1 tab TID PO 12/01/20 21:00 12/13/20 19:47 Bupropion HCl (Wellbutrin Xl) 150 mg DAILY PO 12/03/20 09:00 12/06/20 17:56 DC 12/06/20 09:53 Olanzapine (ZyPREXA ZYDIS) 2.5 mg PRN Q2HRS PRN PO ANXIETY / AGITATION 12/03/20 19:45 12/11/20 14:47 Bupropion HCl (Wellbutrin Xl) 300 mg DAILY PO 12/07/20 09:00 12/09/20 17:57 DC 12/09/20 08:04 Divalproex Sodium (Depakote Sprinkles) 750 mg HS PO 12/06/20 21:00 12/13/20 19:47 Sertraline HCl (Zoloft) 50 mg DAILY PO 12/10/20 09:00 12/13/20 10:56 Quetiapine Fumarate (SEROquel) 12.5 mg 0900,1300 PO 12/12/20 09:00 12/12/20 07:32 DC Quetiapine Fumarate (SEROquel) 25 mg 1200,1700 PO 12/12/20 12:00 12/13/20 17:35 Multi-Ingred Cream/Lotion/Oil/ Oint (Hydrocerin) 1 esther BID TP 12/12/20 21:00 12/13/20 19:52 I have reviewed the current psychotropics carefully including drug interactions. Risk benefit ratio favors no change other than as noted in my dictated progress note. 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
--- NOTE | 2020-12-14 08:24 | PDOC ---
Exam Note: Carl Note: This note is a late entry for 12/13/2020 covers elements not covered in my initial note. Subjective: The patient was seen individually in the evening of 12/13/2020 with Shama WISDOM, discussed and reviewed the chart. He slept 5-3/4 hours previous night. The patient took his meds in pudding around 11 a.m. but kept it in his mouth and spit it out later. He is nevertheless more cooperative. Review of Systems: Ambulation impaired in wheelchair and Parkinsons disease is fairly significant causing tremors which are better significantly causing functioning. No CV, , pulmonary, eye system symptoms on review. Mental Status Exam: The patient is oriented to himself. Verbal responses are m onosyllabic. Abstraction fair. Computation impaired. Language function intact. Mood and affect somewhat labile, anxious, paranoid. Laboratory Data: Reviewed. 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 Anxiety disorder unspecified. Impulse control disorder unspecified. Plan: No change from initial note. Valproic acid level therapeutic at 58. Depakote unchanged for now. We may consider increasing Seroquel at some point and we may need to increase Zoloft as well currently 50 mg a day. Assessment: Vital Signs/I&O: Vital Signs Date Time Temp Pulse Resp B/P (MAP) Pulse Ox O2 Delivery O2 Flow Rate FiO2 12/14/20 05:52 97.5 59 16 122/74 (90) 98 12/11/20 05:44 Room Air I & O 12/13/20 12/13/20 12/14/20 15:00 23:00 07:00 Intake Total 360 ml 240 ml 240 ml Balance 360 ml 240 ml 240 ml Labs: Laboratory Tests Test 12/13/20 21:15 12/14/20 07:27 Urine Collection Type U cath Urine Color Yellow Urine Clarity Clear Urine pH 5.5 Urine Specific [place] 1.025 Urine Protein Neg (NEG-TRACE) Urine Glucose (UA) Neg mg/dL (NEG) Urine Ketones (Stick) Neg mg/dL (NEG) Urine Blood Large (NEG) Urine Nitrite Neg (NEG) Urine Bilirubin Neg (NEG) Urine Urobilinogen Dipstick 0.2 mg/dL (0.2 mg/dL) Urine Leukocyte Esterase Neg (NEG) Urine RBC 11-20 /HPF (0-2) Urine WBC 0 /HPF (0-4) Urine Squamous Epithelial Cells Few /LPF Urine Bacteria 0 /HPF (0-FEW) Glucose (Fingerstick) 97 mg/dL (70-99) Current Medications: Meds: Laboratory Tests Test 12/13/20 21:15 12/14/20 07:27 Urine Collection Type U cath Urine Color Yellow Urine Clarity Clear Urine pH 5.5 Urine Specific [place] 1.025 Urine Protein Neg Urine Glucose (UA) Neg mg/dL Urine Ketones (Stick) Neg mg/dL Urine Blood Large Urine Nitrite Neg Urine Bilirubin Neg Urine Urobilinogen Dipstick 0.2 mg/dL Urine Leukocyte Esterase Neg Urine RBC 11-20 /HPF Urine WBC 0 /HPF Urine Squamous Epithelial Cells Few /LPF Urine Bacteria 0 /HPF Glucose (Fingerstick) 97 mg/dL Current Medications Medications (Trade) Dose Ordered Sig/Vincenzo Route PRN Reason Start Time Stop Time Status Last Admin Dose Admin Acetaminophen (Tylenol) 650 mg PRN Q6HRS PRN PO MILD PAIN / TEMP > 100.3'F 11/28/20 16:45 12/11/20 10:21 DC Multi-Ingredient Ointment (Analgesic [place]) 1 esther PRN QID PRN TP MUSCLE PAIN 11/28/20 16:45 Al Hydroxide/Mg Hydroxide (Mylanta Plus Xs) 15 ml PRN AFTMEALHC PRN PO DYSPEPSIA 11/28/20 16:45 Magnesium Hydroxide (Milk Of Magnesia) 2,400 mg PRN QHS PRN PO 1ST CHOICE CONSTIPATION 11/28/20 16:45 Acetaminophen (Tylenol) 500 mg Q4HRS PRN PO PAIN/FEVER 11/28/20 18:00 12/13/20 10:56 Baclofen (Lioresal) 10 mg QID PO 11/28/20 21:00 12/13/20 19:47 Bisacodyl (Dulcolax Supp) 10 mg PRN DAILY PRN RC 2ND CHOICE CONSTIPATION 11/28/20 18:00 Carbidopa/Levodopa (Sinemet 25/100) 1 tab BID PO 11/28/20 21:00 12/01/20 18:16 DC 12/01/20 09:06 Vitamin D (Vitamin D3) 1,000 unit DAILY PO 11/29/20 09:00 12/13/20 10:55 Clopidogrel Bisulfate (Plavix) 75 mg DAILY PO 11/29/20 09:00 12/13/20 10:55 Donepezil HCl (Aricept) 10 mg QHS PO 11/28/20 21:00 12/13/20 19:48 Fenofibrate (Tricor) 145 mg DAILY PO 11/29/20 09:00 12/13/20 10:56 Furosemide (Lasix) 20 mg DAILY PO 11/29/20 09:00 12/13/20 10:57 Lorazepam (Ativan) 1 mg BID PO 11/28/20 21:00 11/30/20 18:02 DC 11/30/20 08:25 Al Hydroxide/Mg Hydroxide (Mylanta Plus Xs) 30 ml PRN Q2HRS PRN PO UPSET STOMACH 11/28/20 18:00 Metoprolol Succinate (Toprol Xl) 25 mg DAILY PO 11/29/20 09:00 12/13/20 10:56 Nitroglycerin (Nitrostat) 0.4 mg PRN Q5MIN PRN SL CHEST PAIN 11/28/20 18:00 Quetiapine Fumarate (SEROquel) 50 mg DAILY PO 11/29/20 09:00 12/13/20 10:56 Ropinirole HCl (Requip) 0.5 mg HS PO 11/28/20 21:00 12/13/20 19:47 Senna/Docusate Sodium (Senna Plus) 1 tab BID PO 11/28/20 21:00 12/13/20 19:48 Temazepam (Restoril) 7.5 mg QHS PO 11/28/20 21:00 11/28/20 20:32 DC Triamcinolone Acetonide (Kenalog) 1 esther PRN BID PRN TP BILAT ANKLE RASH 11/28/20 18:00 Cyanocobalamin (Vitamin B-12) 1,000 mcg DAILY PO 11/29/20 09:00 12/13/20 10:56 Zinc Acetate/ Diphenhydramine (Benadryl Topical) 1 esther PRN TID PRN TP BILAT ANKLE RASH ITCHING 11/28/20 18:45 Citalopram Hydrobromide (CeleXA) 10 mg DAILY PO 11/29/20 09:00 12/02/20 17:44 DC 12/02/20 08:23 Famotidine (Pepcid) 40 mg HS PO 11/28/20 21:00 12/13/20 19:48 Lactobacillus Rhamnosus (Culturelle) 2 cap BID PO 11/28/20 21:00 12/13/20 19:47 Levetiracetam (Keppra) 1,000 mg BID PO 11/28/20 21:00 12/13/20 19:48 Melatonin (Melatonin) 6 mg QHS PO 11/28/20 21:00 12/13/20 19:47 Niacin (Slo-Niacin) 250 mg QHS PO 11/28/20 21:00 12/13/20 19:49 Ondansetron HCl (Zofran Odt) 4 mg PRN Q4HRS PRN PO NAUSEA/VOMITING 11/28/20 18:45 Polyethylene Glycol (miraLAX) 17 gm DAILY PO 11/29/20 09:00 12/13/20 10:57 Non-Formulary Medication (Rosuvastatin Calcium (Crestor)) 40 mg HS PO 11/28/20 21:00 12/11/20 20:42 DC Temazepam (Restoril) 7.5 mg QHS PO 11/28/20 21:00 11/30/20 18:01 DC 11/29/20 21:13 Lorazepam (Ativan) 1 mg QHS PO 11/30/20 21:00 12/13/20 19:48 Lorazepam (Ativan) 0.5 mg DAILY PO 12/01/20 09:00 12/13/20 10:56 Mirtazapine (Remeron) 7.5 mg QHS PO 11/30/20 21:00 12/13/20 19:48 Divalproex Sodium (Depakote Sprinkles) 500 mg HS PO 12/01/20 21:00 12/06/20 17:56 DC 12/05/20 20:00 Carbidopa/Levodopa (Sinemet 25/100) 1 tab TID PO 12/01/20 21:00 12/13/20 19:47 Bupropion HCl (Wellbutrin Xl) 150 mg DAILY PO 12/03/20 09:00 12/06/20 17:56 DC 12/06/20 09:53 Olanzapine (ZyPREXA ZYDIS) 2.5 mg PRN Q2HRS PRN PO ANXIETY / AGITATION 12/03/20 19:45 12/11/20 14:47 Bupropion HCl (Wellbutrin Xl) 300 mg DAILY PO 12/07/20 09:00 12/09/20 17:57 DC 12/09/20 08:04 Divalproex Sodium (Depakote Sprinkles) 750 mg HS PO 12/06/20 21:00 12/13/20 19:47 Sertraline HCl (Zoloft) 50 mg DAILY PO 12/10/20 09:00 12/13/20 10:56 Quetiapine Fumarate (SEROquel) 12.5 mg 0900,1300 PO 12/12/20 09:00 12/12/20 07:32 DC Quetiapine Fumarate (SEROquel) 25 mg 1200,1700 PO 12/12/20 12:00 12/13/20 17:35 Multi-Ingred Cream/Lotion/Oil/ Oint (Hydrocerin) 1 esther BID TP 12/12/20 21:00 12/13/20 19:52 I have reviewed the current psychotropics carefully including drug interactions. Risk benefit ratio favors no change other than as noted in my dictated progress note. 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
[2020-12-14] MEDS: POLYETHYLENE GLYCOL 3350 17 GM PACKET. PO SCH (08:28)
[2020-12-14] MEDS: BACLOFEN 10 MG TABLET PO SCH ×4 (08:29→20:28)
[2020-12-14] MEDS: CLOPIDOGREL BISULFATE 75 MG TABLET PO SCH (08:29)
[2020-12-14] MEDS: CHOLECALCIFEROL (VITAMIN D3) 1,000 UNIT TABLET PO SCH (08:29)
[2020-12-14] MEDS: LACTOBACILLUS RHAMNOSUS GG 1 CAPSULE. PO SCH ×2 (08:29→20:27)
[2020-12-14] MEDS: CARBIDOPA/LEVODOPA 25/100MG TABLET PO SCH ×3 (08:29→20:28)
[2020-12-14] MEDS: FENOFIBRATE NANOCRYSTALLIZED 145 MG TABLET PO SCH (08:29)
[2020-12-14] MEDS: levETIRAcetam 500 MG TABLET PO SCH ×2 (08:29→20:27)
[2020-12-14] MEDS: FUROSEMIDE 20 MG TABLET PO SCH (08:30)
[2020-12-14] MEDS: LORazepam 0.5 MG TABLET PO SCH (08:30)
[2020-12-14] MEDS: QUEtiapine 50 MG TABLET. PO SCH (08:30)
[2020-12-14] MEDS: CYANOCOBALAMIN (VITAMIN B-12) 1,000 MCG TABLET. PO SCH (08:30)
[2020-12-14] MEDS: SENNOSIDES/DOCUSATE 8.6/50MG TABLET. PO SCH ×2 (08:30→20:28)
[2020-12-14] MEDS: METOPROLOL SUCC 24HR ER 25 MG TAB.ER.24H. PO SCH (08:30)
[2020-12-14] MEDS: SERTRALINE 50 MG TABLET. PO SCH (08:30)
[2020-12-14] MEDS: MINERAL OIL/PETROLATUM TOPICAL CREAM 113GM JAR. TP SCH ×2 (09:00→20:28)
[2020-12-14] MEDS: QUEtiapine 25 MG TABLET. PO SCH ×2 (12:20→16:55)
[2020-12-14 16:00] VITALS: BP 101/65
[2020-12-14] MEDS: LORazepam 1 MG TABLET PO SCH (20:26)
[2020-12-14] MEDS: NIACIN ER 500 MG TABLET.ER PO SCH (20:26)
[2020-12-14] MEDS: MIRTAZAPINE 7.5 MG TABLET. PO SCH (20:27)
[2020-12-14] MEDS: MELATONIN 3 MG TABLET PO SCH (20:27)
[2020-12-14] MEDS: FAMOTIDINE 20 MG TABLET PO SCH (20:27)
[2020-12-14] MEDS: rOPINIRole 0.5 MG TABLET. PO SCH (20:28)
[2020-12-14] MEDS: DONEPEZIL HCL 10 MG TABLET PO SCH (20:28)
[2020-12-14] MEDS: DIVALPROEX 125 MG CAP.SPRINK PO SCH (20:28)
--- NOTE | 2020-12-14 21:57 | PDOC ---
Exam Note: Carl Note: Please also refer to the separate dictated note~for this date of service dictated separately.~Patient seen individually. Discussed the patient with Nursing staff reviewed the chart.~Reviewed interim history and current functioning. Reviewed vital signs,~Labs/ Radiology~and current medications noted below. Continue current treatment with the changes noted in the dictated addendum note Assessment: Vital Signs/I&O: Vital Signs Date Time Temp Pulse Resp B/P (MAP) Pulse Ox O2 Delivery O2 Flow Rate FiO2 12/14/20 16:00 97.6 68 16 101/65 (77) 100 12/11/20 05:44 Room Air I & O 12/13/20 12/13/20 12/14/20 15:00 23:00 07:00 Intake Total 360 ml 240 ml 240 ml Balance 360 ml 240 ml 240 ml Labs: Laboratory Tests Test 12/14/20 07:27 12/14/20 19:47 Glucose (Fingerstick) 97 mg/dL (70-99) 147 mg/dL (70-99) H Current Medications: Meds: Laboratory Tests Test 12/14/20 07:27 12/14/20 19:47 Glucose (Fingerstick) 97 mg/dL 147 mg/dL Current Medications Medications (Trade) Dose Ordered Sig/Vincenzo Route PRN Reason Start Time Stop Time Status Last Admin Dose Admin Acetaminophen (Tylenol) 650 mg PRN Q6HRS PRN PO MILD PAIN / TEMP > 100.3'F 11/28/20 16:45 12/11/20 10:21 DC Multi-Ingredient Ointment (Analgesic [place]) 1 esther PRN QID PRN TP MUSCLE PAIN 11/28/20 16:45 Al Hydroxide/Mg Hydroxide (Mylanta Plus Xs) 15 ml PRN AFTMEALHC PRN PO DYSPEPSIA 11/28/20 16:45 Magnesium Hydroxide (Milk Of Magnesia) 2,400 mg PRN QHS PRN PO 1ST CHOICE CONSTIPATION 11/28/20 16:45 Acetaminophen (Tylenol) 500 mg Q4HRS PRN PO PAIN/FEVER 11/28/20 18:00 12/13/20 10:56 Baclofen (Lioresal) 10 mg QID PO 11/28/20 21:00 12/14/20 20:28 Bisacodyl (Dulcolax Supp) 10 mg PRN DAILY PRN RC 2ND CHOICE CONSTIPATION 11/28/20 18:00 Carbidopa/Levodopa (Sinemet 25/100) 1 tab BID PO 11/28/20 21:00 12/01/20 18:16 DC 12/01/20 09:06 Vitamin D (Vitamin D3) 1,000 unit DAILY PO 11/29/20 09:00 12/14/20 08:29 Clopidogrel Bisulfate (Plavix) 75 mg DAILY PO 11/29/20 09:00 12/14/20 08:29 Donepezil HCl (Aricept) 10 mg QHS PO 11/28/20 21:00 12/14/20 20:28 Fenofibrate (Tricor) 145 mg DAILY PO 11/29/20 09:00 12/14/20 08:29 Furosemide (Lasix) 20 mg DAILY PO 11/29/20 09:00 12/14/20 08:30 Lorazepam (Ativan) 1 mg BID PO 11/28/20 21:00 11/30/20 18:02 DC 11/30/20 08:25 Al Hydroxide/Mg Hydroxide (Mylanta Plus Xs) 30 ml PRN Q2HRS PRN PO UPSET STOMACH 11/28/20 18:00 Metoprolol Succinate (Toprol Xl) 25 mg DAILY PO 11/29/20 09:00 12/14/20 08:30 Nitroglycerin (Nitrostat) 0.4 mg PRN Q5MIN PRN SL CHEST PAIN 11/28/20 18:00 Quetiapine Fumarate (SEROquel) 50 mg DAILY PO 11/29/20 09:00 12/14/20 08:30 Ropinirole HCl (Requip) 0.5 mg HS PO 11/28/20 21:00 12/14/20 20:28 Senna/Docusate Sodium (Senna Plus) 1 tab BID PO 11/28/20 21:00 12/14/20 20:28 Temazepam (Restoril) 7.5 mg QHS PO 11/28/20 21:00 11/28/20 20:32 DC Triamcinolone Acetonide (Kenalog) 1 esther PRN BID PRN TP BILAT ANKLE RASH 11/28/20 18:00 Cyanocobalamin (Vitamin B-12) 1,000 mcg DAILY PO 11/29/20 09:00 12/14/20 08:30 Zinc Acetate/ Diphenhydramine (Benadryl Topical) 1 esther PRN TID PRN TP BILAT ANKLE RASH ITCHING 11/28/20 18:45 Citalopram Hydrobromide (CeleXA) 10 mg DAILY PO 11/29/20 09:00 12/02/20 17:44 DC 12/02/20 08:23 Famotidine (Pepcid) 40 mg HS PO 11/28/20 21:00 12/14/20 20:27 Lactobacillus Rhamnosus (Culturelle) 2 cap BID PO 11/28/20 21:00 12/14/20 20:27 Levetiracetam (Keppra) 1,000 mg BID PO 11/28/20 21:00 12/14/20 20:27 Melatonin (Melatonin) 6 mg QHS PO 11/28/20 21:00 12/14/20 20:27 Niacin (Slo-Niacin) 250 mg QHS PO 11/28/20 21:00 12/14/20 20:26 Ondansetron HCl (Zofran Odt) 4 mg PRN Q4HRS PRN PO NAUSEA/VOMITING 11/28/20 18:45 Polyethylene Glycol (miraLAX) 17 gm DAILY PO 11/29/20 09:00 12/14/20 08:28 Non-Formulary Medication (Rosuvastatin Calcium (Crestor)) 40 mg HS PO 11/28/20 21:00 12/11/20 20:42 DC Temazepam (Restoril) 7.5 mg QHS PO 11/28/20 21:00 11/30/20 18:01 DC 11/29/20 21:13 Lorazepam (Ativan) 1 mg QHS PO 11/30/20 21:00 12/14/20 20:26 Lorazepam (Ativan) 0.5 mg DAILY PO 12/01/20 09:00 12/14/20 08:30 Mirtazapine (Remeron) 7.5 mg QHS PO 11/30/20 21:00 12/14/20 20:27 Divalproex Sodium (Depakote Sprinkles) 500 mg HS PO 12/01/20 21:00 12/06/20 17:56 DC 12/05/20 20:00 Carbidopa/Levodopa (Sinemet 25/100) 1 tab TID PO 12/01/20 21:00 12/14/20 20:28 Bupropion HCl (Wellbutrin Xl) 150 mg DAILY PO 12/03/20 09:00 12/06/20 17:56 DC 12/06/20 09:53 Olanzapine (ZyPREXA ZYDIS) 2.5 mg PRN Q2HRS PRN PO ANXIETY / AGITATION 12/03/20 19:45 12/11/20 14:47 Bupropion HCl (Wellbutrin Xl) 300 mg DAILY PO 12/07/20 09:00 12/09/20 17:57 DC 12/09/20 08:04 Divalproex Sodium (Depakote Sprinkles) 750 mg HS PO 12/06/20 21:00 12/14/20 20:28 Sertraline HCl (Zoloft) 50 mg DAILY PO 12/10/20 09:00 12/14/20 08:30 Quetiapine Fumarate (SEROquel) 12.5 mg 0900,1300 PO 12/12/20 09:00 12/12/20 07:32 DC Quetiapine Fumarate (SEROquel) 25 mg 1200,1700 PO 12/12/20 12:00 12/14/20 16:55 Multi-Ingred Cream/Lotion/Oil/ Oint (Hydrocerin) 1 esther BID TP 12/12/20 21:00 12/14/20 20:28 I have reviewed the current psychotropics carefully including drug interactions. Risk benefit ratio favors no change other than as noted in my dictated progress note. 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
[2020-12-15] MEDS ORDERED: MAGN24003 PO (02:08)
[2020-12-15] MEDS ORDERED: DIVA125C2 PO (02:08)
[2020-12-15] MEDS ORDERED: METH57CR17 TP (02:09)
[2020-12-15] MEDS ORDERED: EMOL85CR TP ×2 (02:10→09:28)
[2020-12-15] MEDS ORDERED: MIRT7.5T8 PO (02:11)
[2020-12-15] MEDS ORDERED: OLAN5TAB7 PO (02:12)
[2020-12-15] MEDS ORDERED: QUET25TA5 PO (02:13)
[2020-12-15] MEDS ORDERED: SERT50TA PO (02:14)
[2020-12-15 05:55] VITALS: BP 148/81
--- NOTE | 2020-12-15 07:01 | PDOC ---
Exam Note: Carl Note: This note is a late entry for 12/14/2020 covers elements not covered in my initial note. Subjective: The patient was seen individually in the evening of 12/14/2020 with Alfreda WISDOM, discussed and reviewed the chart. He slept 7-1/2 hours previous night. The patient is not aggressive. Review of Systems: Ambulation impaired in wheelchair and Parkinsons disease is fairly significant causing tremors which are better significantly causing functioning. No CV, , pulmonary, eye system symptoms on review. Mental Status Exam: The patient is oriented to himself. Speech coherent. Verbal responses are monosyllabic. Abstraction fair. Computation impaired. Language function intact. Mood and affect somewhat labile, anxious. Laboratory Data: Reviewed. 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 Anxiety disorder unspecified. Impulse control disorder unspecified. Plan: No change from initial note. Assessment: Vital Signs/I&O: Vital Signs Date Time Temp Pulse Resp B/P (MAP) Pulse Ox O2 Delivery O2 Flow Rate FiO2 12/15/20 05:55 97.8 84 18 148/81 (103) 100 12/11/20 05:44 Room Air I & O 12/14/20 12/14/20 12/15/20 15:00 23:00 07:00 Intake Total 1080 ml 660 ml 120 ml Balance 1080 ml 660 ml 120 ml Labs: Laboratory Tests Test 12/14/20 07:27 12/14/20 19:47 Glucose (Fingerstick) 97 mg/dL (70-99) 147 mg/dL (70-99) H Current Medications: Meds: Laboratory Tests Test 12/14/20 07:27 12/14/20 19:47 Glucose (Fingerstick) 97 mg/dL 147 mg/dL Current Medications Medications (Trade) Dose Ordered Sig/Vincenzo Route PRN Reason Start Time Stop Time Status Last Admin Dose Admin Acetaminophen (Tylenol) 650 mg PRN Q6HRS PRN PO MILD PAIN / TEMP > 100.3'F 11/28/20 16:45 12/11/20 10:21 DC Multi-Ingredient Ointment (Analgesic [place]) 1 esther PRN QID PRN TP MUSCLE PAIN 11/28/20 16:45 Al Hydroxide/Mg Hydroxide (Mylanta Plus Xs) 15 ml PRN AFTMEALHC PRN PO DYSPEPSIA 11/28/20 16:45 Magnesium Hydroxide (Milk Of Magnesia) 2,400 mg PRN QHS PRN PO 1ST CHOICE CONSTIPATION 11/28/20 16:45 Acetaminophen (Tylenol) 500 mg Q4HRS PRN PO PAIN/FEVER 11/28/20 18:00 12/13/20 10:56 Baclofen (Lioresal) 10 mg QID PO 11/28/20 21:00 12/14/20 20:28 Bisacodyl (Dulcolax Supp) 10 mg PRN DAILY PRN RC 2ND CHOICE CONSTIPATION 11/28/20 18:00 Carbidopa/Levodopa (Sinemet 25/100) 1 tab BID PO 11/28/20 21:00 12/01/20 18:16 DC 12/01/20 09:06 Vitamin D (Vitamin D3) 1,000 unit DAILY PO 11/29/20 09:00 12/14/20 08:29 Clopidogrel Bisulfate (Plavix) 75 mg DAILY PO 11/29/20 09:00 12/14/20 08:29 Donepezil HCl (Aricept) 10 mg QHS PO 11/28/20 21:00 12/14/20 20:28 Fenofibrate (Tricor) 145 mg DAILY PO 11/29/20 09:00 12/14/20 08:29 Furosemide (Lasix) 20 mg DAILY PO 11/29/20 09:00 12/14/20 08:30 Lorazepam (Ativan) 1 mg BID PO 11/28/20 21:00 11/30/20 18:02 DC 11/30/20 08:25 Al Hydroxide/Mg Hydroxide (Mylanta Plus Xs) 30 ml PRN Q2HRS PRN PO UPSET STOMACH 11/28/20 18:00 Metoprolol Succinate (Toprol Xl) 25 mg DAILY PO 11/29/20 09:00 12/14/20 08:30 Nitroglycerin (Nitrostat) 0.4 mg PRN Q5MIN PRN SL CHEST PAIN 11/28/20 18:00 Quetiapine Fumarate (SEROquel) 50 mg DAILY PO 11/29/20 09:00 12/14/20 08:30 Ropinirole HCl (Requip) 0.5 mg HS PO 11/28/20 21:00 12/14/20 20:28 Senna/Docusate Sodium (Senna Plus) 1 tab BID PO 11/28/20 21:00 12/14/20 20:28 Temazepam (Restoril) 7.5 mg QHS PO 11/28/20 21:00 11/28/20 20:32 DC Triamcinolone Acetonide (Kenalog) 1 esther PRN BID PRN TP BILAT ANKLE RASH 11/28/20 18:00 Cyanocobalamin (Vitamin B-12) 1,000 mcg DAILY PO 11/29/20 09:00 12/14/20 08:30 Zinc Acetate/ Diphenhydramine (Benadryl Topical) 1 esther PRN TID PRN TP BILAT ANKLE RASH ITCHING 11/28/20 18:45 Citalopram Hydrobromide (CeleXA) 10 mg DAILY PO 11/29/20 09:00 12/02/20 17:44 DC 12/02/20 08:23 Famotidine (Pepcid) 40 mg HS PO 11/28/20 21:00 12/14/20 20:27 Lactobacillus Rhamnosus (Culturelle) 2 cap BID PO 11/28/20 21:00 12/14/20 20:27 Levetiracetam (Keppra) 1,000 mg BID PO 11/28/20 21:00 12/14/20 20:27 Melatonin (Melatonin) 6 mg QHS PO 11/28/20 21:00 12/14/20 20:27 Niacin (Slo-Niacin) 250 mg QHS PO 11/28/20 21:00 12/14/20 20:26 Ondansetron HCl (Zofran Odt) 4 mg PRN Q4HRS PRN PO NAUSEA/VOMITING 11/28/20 18:45 Polyethylene Glycol (miraLAX) 17 gm DAILY PO 11/29/20 09:00 12/14/20 08:28 Non-Formulary Medication (Rosuvastatin Calcium (Crestor)) 40 mg HS PO 11/28/20 21:00 12/11/20 20:42 DC Temazepam (Restoril) 7.5 mg QHS PO 11/28/20 21:00 11/30/20 18:01 DC 11/29/20 21:13 Lorazepam (Ativan) 1 mg QHS PO 11/30/20 21:00 12/14/20 20:26 Lorazepam (Ativan) 0.5 mg DAILY PO 12/01/20 09:00 12/14/20 08:30 Mirtazapine (Remeron) 7.5 mg QHS PO 11/30/20 21:00 12/14/20 20:27 Divalproex Sodium (Depakote Sprinkles) 500 mg HS PO 12/01/20 21:00 12/06/20 17:56 DC 12/05/20 20:00 Carbidopa/Levodopa (Sinemet 25/100) 1 tab TID PO 12/01/20 21:00 12/14/20 20:28 Bupropion HCl (Wellbutrin Xl) 150 mg DAILY PO 12/03/20 09:00 12/06/20 17:56 DC 12/06/20 09:53 Olanzapine (ZyPREXA ZYDIS) 2.5 mg PRN Q2HRS PRN PO ANXIETY / AGITATION 12/03/20 19:45 12/11/20 14:47 Bupropion HCl (Wellbutrin Xl) 300 mg DAILY PO 12/07/20 09:00 12/09/20 17:57 DC 12/09/20 08:04 Divalproex Sodium (Depakote Sprinkles) 750 mg HS PO 12/06/20 21:00 12/14/20 20:28 Sertraline HCl (Zoloft) 50 mg DAILY PO 12/10/20 09:00 12/14/20 08:30 Quetiapine Fumarate (SEROquel) 12.5 mg 0900,1300 PO 12/12/20 09:00 12/12/20 07:32 DC Quetiapine Fumarate (SEROquel) 25 mg 1200,1700 PO 12/12/20 12:00 12/14/20 16:55 Multi-Ingred Cream/Lotion/Oil/ Oint (Hydrocerin) 1 esther BID TP 12/12/20 21:00 12/14/20 20:28 I have reviewed the current psychotropics carefully including drug interactions. Risk benefit ratio favors no change other than as noted in my dictated progress note. 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
[2020-12-15 08:42] VITALS: BP 148/81
[2020-12-15] MEDS: METOPROLOL SUCC 24HR ER 25 MG TAB.ER.24H. PO SCH (08:42)
[2020-12-15] MEDS: BACLOFEN 10 MG TABLET PO SCH (08:42)
[2020-12-15] MEDS: SERTRALINE 50 MG TABLET. PO SCH (08:43)
[2020-12-15] MEDS: levETIRAcetam 500 MG TABLET PO SCH (08:43)
[2020-12-15] MEDS: FENOFIBRATE NANOCRYSTALLIZED 145 MG TABLET PO SCH (08:43)
[2020-12-15] MEDS: FUROSEMIDE 20 MG TABLET PO SCH (08:44)
[2020-12-15] MEDS: CYANOCOBALAMIN (VITAMIN B-12) 1,000 MCG TABLET. PO SCH (08:44)
[2020-12-15] MEDS: CLOPIDOGREL BISULFATE 75 MG TABLET PO SCH (08:44)
[2020-12-15] MEDS: CHOLECALCIFEROL (VITAMIN D3) 1,000 UNIT TABLET PO SCH (08:45)
[2020-12-15] MEDS: SENNOSIDES/DOCUSATE 8.6/50MG TABLET. PO SCH (08:45)
[2020-12-15] MEDS: CARBIDOPA/LEVODOPA 25/100MG TABLET PO SCH (08:45)
[2020-12-15] MEDS: QUEtiapine 50 MG TABLET. PO SCH (08:45)
[2020-12-15] MEDS: LORazepam 0.5 MG TABLET PO SCH (08:46)
[2020-12-15] MEDS: POLYETHYLENE GLYCOL 3350 17 GM PACKET. PO SCH (08:49)
[2020-12-15] MEDS: LACTOBACILLUS RHAMNOSUS GG 1 CAPSULE. PO SCH (08:49)
[2020-12-15] MEDS: MINERAL OIL/PETROLATUM TOPICAL CREAM 113GM JAR. TP SCH (09:00)
--- NOTE | 2020-12-15 22:12 | PDOC ---
Exam Note: Carl Note: Please also refer to the separate dictated note~for this date of service dictated separately.~Patient seen individually. Discussed the patient with Nursing staff reviewed the chart.~Reviewed interim history and current functioning. Reviewed vital signs,~Labs/ Radiology~and current medications noted below. Continue current treatment with the changes noted in the dictated addendum note Assessment: Vital Signs/I&O: Vital Signs Date Time Temp Pulse Resp B/P (MAP) Pulse Ox O2 Delivery O2 Flow Rate FiO2 12/15/20 08:42 84 148/81 12/15/20 05:55 97.8 18 100 12/11/20 05:44 Room Air I & O 12/14/20 12/14/20 12/15/20 15:00 23:00 07:00 Intake Total 1080 ml 660 ml 120 ml Balance 1080 ml 660 ml 120 ml Labs: Laboratory Tests Test 12/15/20 07:33 Glucose (Fingerstick) 78 mg/dL (70-99) Current Medications: Meds: Laboratory Tests Test 12/15/20 07:33 Glucose (Fingerstick) 78 mg/dL Current Medications Medications (Trade) Dose Ordered Sig/Vincenzo Route PRN Reason Start Time Stop Time Status Last Admin Dose Admin Acetaminophen (Tylenol) 650 mg PRN Q6HRS PRN PO MILD PAIN / TEMP > 100.3'F 11/28/20 16:45 12/11/20 10:21 DC Multi-Ingredient Ointment (Analgesic [place]) 1 esther PRN QID PRN TP MUSCLE PAIN 11/28/20 16:45 12/15/20 12:38 DC Al Hydroxide/Mg Hydroxide (Mylanta Plus Xs) 15 ml PRN AFTMEALHC PRN PO DYSPEPSIA 11/28/20 16:45 12/15/20 12:38 DC Magnesium Hydroxide (Milk Of Magnesia) 2,400 mg PRN QHS PRN PO 1ST CHOICE CONSTIPATION 11/28/20 16:45 12/15/20 12:38 DC Acetaminophen (Tylenol) 500 mg Q4HRS PRN PO PAIN/FEVER 11/28/20 18:00 12/15/20 12:38 DC 12/13/20 10:56 Baclofen (Lioresal) 10 mg QID PO 11/28/20 21:00 12/15/20 12:38 DC 12/15/20 08:42 Bisacodyl (Dulcolax Supp) 10 mg PRN DAILY PRN RC 2ND CHOICE CONSTIPATION 11/28/20 18:00 12/15/20 12:38 DC Carbidopa/Levodopa (Sinemet 25/100) 1 tab BID PO 11/28/20 21:00 12/01/20 18:16 DC 12/01/20 09:06 Vitamin D (Vitamin D3) 1,000 unit DAILY PO 11/29/20 09:00 12/15/20 12:38 DC 12/15/20 08:45 Clopidogrel Bisulfate (Plavix) 75 mg DAILY PO 11/29/20 09:00 12/15/20 12:38 DC 12/15/20 08:44 Donepezil HCl (Aricept) 10 mg QHS PO 11/28/20 21:00 12/15/20 12:38 DC 12/14/20 20:28 Fenofibrate (Tricor) 145 mg DAILY PO 11/29/20 09:00 12/15/20 12:38 DC 12/15/20 08:43 Furosemide (Lasix) 20 mg DAILY PO 11/29/20 09:00 12/15/20 12:38 DC 12/15/20 08:44 Lorazepam (Ativan) 1 mg BID PO 11/28/20 21:00 11/30/20 18:02 DC 11/30/20 08:25 Al Hydroxide/Mg Hydroxide (Mylanta Plus Xs) 30 ml PRN Q2HRS PRN PO UPSET STOMACH 11/28/20 18:00 12/15/20 12:38 DC Metoprolol Succinate (Toprol Xl) 25 mg DAILY PO 11/29/20 09:00 12/15/20 12:38 DC 12/15/20 08:42 Nitroglycerin (Nitrostat) 0.4 mg PRN Q5MIN PRN SL CHEST PAIN 11/28/20 18:00 12/15/20 12:38 DC Quetiapine Fumarate (SEROquel) 50 mg DAILY PO 11/29/20 09:00 12/15/20 12:38 DC 12/15/20 08:45 Ropinirole HCl (Requip) 0.5 mg HS PO 11/28/20 21:00 12/15/20 12:38 DC 12/14/20 20:28 Senna/Docusate Sodium (Senna Plus) 1 tab BID PO 11/28/20 21:00 12/15/20 12:38 DC 12/15/20 08:45 Temazepam (Restoril) 7.5 mg QHS PO 11/28/20 21:00 11/28/20 20:32 DC Triamcinolone Acetonide (Kenalog) 1 esther PRN BID PRN TP BILAT ANKLE RASH 11/28/20 18:00 12/15/20 12:38 DC Cyanocobalamin (Vitamin B-12) 1,000 mcg DAILY PO 11/29/20 09:00 12/15/20 12:38 DC 12/15/20 08:44 Zinc Acetate/ Diphenhydramine (Benadryl Topical) 1 esther PRN TID PRN TP BILAT ANKLE RASH ITCHING 11/28/20 18:45 12/15/20 12:38 DC Citalopram Hydrobromide (CeleXA) 10 mg DAILY PO 11/29/20 09:00 12/02/20 17:44 DC 12/02/20 08:23 Famotidine (Pepcid) 40 mg HS PO 11/28/20 21:00 12/15/20 12:38 DC 12/14/20 20:27 Lactobacillus Rhamnosus (Culturelle) 2 cap BID PO 11/28/20 21:00 12/15/20 12:38 DC 12/15/20 08:49 Levetiracetam (Keppra) 1,000 mg BID PO 11/28/20 21:00 12/15/20 12:38 DC 12/15/20 08:43 Melatonin (Melatonin) 6 mg QHS PO 11/28/20 21:00 12/15/20 12:38 DC 12/14/20 20:27 Niacin (Slo-Niacin) 250 mg QHS PO 11/28/20 21:00 12/15/20 12:38 DC 12/14/20 20:26 Ondansetron HCl (Zofran Odt) 4 mg PRN Q4HRS PRN PO NAUSEA/VOMITING 11/28/20 18:45 12/15/20 12:38 DC Polyethylene Glycol (miraLAX) 17 gm DAILY PO 11/29/20 09:00 12/15/20 12:38 DC 12/15/20 08:49 Non-Formulary Medication (Rosuvastatin Calcium (Crestor)) 40 mg HS PO 11/28/20 21:00 12/11/20 20:42 DC Temazepam (Restoril) 7.5 mg QHS PO 11/28/20 21:00 11/30/20 18:01 DC 11/29/20 21:13 Lorazepam (Ativan) 1 mg QHS PO 11/30/20 21:00 12/15/20 12:38 DC 12/14/20 20:26 Lorazepam (Ativan) 0.5 mg DAILY PO 12/01/20 09:00 12/15/20 12:38 DC 12/15/20 08:46 Mirtazapine (Remeron) 7.5 mg QHS PO 11/30/20 21:00 12/15/20 12:38 DC 12/14/20 20:27 Divalproex Sodium (Depakote Sprinkles) 500 mg HS PO 12/01/20 21:00 12/06/20 17:56 DC 12/05/20 20:00 Carbidopa/Levodopa (Sinemet 25/100) 1 tab TID PO 12/01/20 21:00 12/15/20 12:38 DC 12/15/20 08:45 Bupropion HCl (Wellbutrin Xl) 150 mg DAILY PO 12/03/20 09:00 12/06/20 17:56 DC 12/06/20 09:53 Olanzapine (ZyPREXA ZYDIS) 2.5 mg PRN Q2HRS PRN PO ANXIETY / AGITATION 12/03/20 19:45 12/15/20 12:38 DC 12/11/20 14:47 Bupropion HCl (Wellbutrin Xl) 300 mg DAILY PO 12/07/20 09:00 12/09/20 17:57 DC 12/09/20 08:04 Divalproex Sodium (Depakote Sprinkles) 750 mg HS PO 12/06/20 21:00 12/15/20 12:38 DC 12/14/20 20:28 Sertraline HCl (Zoloft) 50 mg DAILY PO 12/10/20 09:00 12/15/20 12:38 DC 12/15/20 08:43 Quetiapine Fumarate (SEROquel) 12.5 mg 0900,1300 PO 12/12/20 09:00 12/12/20 07:32 DC Quetiapine Fumarate (SEROquel) 25 mg 1200,1700 PO 12/12/20 12:00 12/15/20 12:38 DC 12/14/20 16:55 Multi-Ingred Cream/Lotion/Oil/ Oint (Hydrocerin) 1 esther BID TP 12/12/20 21:00 12/15/20 12:38 DC 12/15/20 09:00 I have reviewed the current psychotropics carefully including drug interactions. Risk benefit ratio favors no change other than as noted in my dictated progress note. 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
--- NOTE | 2020-12-15 23:27 | DS ---
DATE OF DISCHARGE: 12/15/2020 DISCHARGE SUMMARY/PSYCHIATRIC PROGRESS NOTE This note covers the elements not covered in my initial note, 12/15/2020. REASON FOR ADMISSION: Please refer to the admission history for details. Briefly, the patient is a 70-year-old male with fairly advanced Parkinson's disease, referred by his primary care physician from [facility] on account of extreme restlessness, agitation, irritability, swinging at staff and peers, hallucinating. He threatened to kill his that lives in the same facility threatening peers. The patient has failed outpatient psychiatric interventions resulting in this referral. SIGNIFICANT FINDINGS AND CLINICAL COURSE: Following admission, the patient was seen daily individually by myself from a psychiatric standpoint. Medical followup with Dr. Guzmán/Dr. Conti. Dr. Florian was consulted to follow the patient for his Parkinson's. He is extremely agitated with marked mood lability and significant parkinsonian features at admission. Adjustments were made in his psychotropics. He seemed to respond to a combination of Seroquel 50 mg daily, Zoloft 50 mg daily, Ativan 0.5 mg daily and 1 mg at bedtime, Remeron 7.5 mg at bedtime, melatonin 6 mg at bedtime, Requip 0.5 mg at bedtime, Aricept 10 mg at bedtime, Depakote sprinkles 750 mg at bedtime, level therapeutic at 58, Zyprexa Zydis p.r.n., Seroquel 25 mg at noon and 5 p.m., and he was on Sinemet for Parkinson's and Keppra for seizure prophylaxis. REVIEW OF SYSTEMS: Prior to discharge, he is in a wheelchair, impaired ambulation. No CV, , pulmonary, eye, ENT system symptoms on review. Reliability poor. MENTAL STATUS EXAM: Oriented to himself. 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 Rest unchanged. DISCHARGE MEDICATIONS: Please refer to the MRAD. DISCHARGE INSTRUCTIONS: Outpatient psychiatric and medical followup at the [facility]. Time for discharge day management greater than 30 minutes. DENYS/RENE DR: Alissa TID: [id number]
== END 2020-12-15 12:00 | DRG 885 ==
LOC: ER 12:52 → GEROPSY 15:30
PROVIDERS: ADMIT Psychiatry & Neurology Psychiatry; ATTEND Psychiatry & Neurology Psychiatry
DX: F25.0 Schizoaffective disorder, bipolar type (principal); F05 Delirium due to known physiological condition; F01.51 Vascular dementia, unspecified severity, with behavioral disturbance; F02.81 Dementia in other diseases classified elsewhere, unspecified severity, with behavioral disturbance; F63.9 Impulse disorder, unspecified; E11.9 Type 2 diabetes mellitus without complications; E78.5 Hyperlipidemia, unspecified; F43.10 Post-traumatic stress disorder, unspecified; G24.9 Dystonia, unspecified; G25.3 Myoclonus; G30.9 Alzheimer's disease, unspecified; G31.83 Neurocognitive disorder with Lewy bodies; H91.90 Unspecified hearing loss, unspecified ear; I10 Essential (primary) hypertension; K21.9 Gastro-esophageal reflux disease without esophagitis; R63.3 Feeding difficulties; Z79.899 Other long term (current) drug therapy; Z88.8 Allergy status to other drugs, medicaments and biological substances; Z99.3 Dependence on wheelchair; K59.09 Other constipation
CPT/HCPCS: 36415; 80047; 80053; 80061; 80164; 81001; 82306; 82607; 82947; 83036; 83540; 83550; 83735; 84436; 84443; 84480; 85025; 85379; 86592; 93005; 97116; 97530; 99285-25